=== PATIENT | female | born 1940 | race Hispanic/Latino ===

== ENCOUNTER 2020-02-13 11:47 | Emergency (ER) | payer OTHER ==
--- OUTSIDE RECORDS SUMMARY | 2020-02-13 11:58 | XMS REPORT | Clinical Summary ---
:1940 Author Organization [facility] [facility] Address [address] [place] [address] Care Team Providers Name Role Phone MD Bessy Primary Care Provider Allergies Active Allergy Reactions Severity Noted Date Comments Hydrocodone Swelling 03/15/2018 Iodine Swelling 03/15/2018 Morphine Swelling 07/04/2019 Tramadol Swelling 03/15/2018 Medications Medication Sig Dispensed Refills Start Date End Date Status ONETOUCH VERIO 0 02/28/2018 Acti ve strip test strips citalopram Take 20 mg by 1 12/30/2017 Acti ve (CeleXA) 20 MG mouth daily. tablet metFORMIN Take 1,000 mg 1 12/30/2017 Activ e (GLUCOPHAGE) 1,000 by mouth 2 mg tablet (two) times a day with meals. montelukast Take 10 mg by 0 02/28/2018 Act thao (SINGULAIR) 10 mg mouth daily. tablet simvastatin Take 40 mg by 1 12/11/2017 Act thao (ZOCOR) 40 MG mouth every tablet evening. sotalol (BETAPACE) Take by mouth 3 02/06/2018 Active 80 MG tablet 2 (two) times a day. Pt unsure of dosage. Takes 1/2 tab bid gabapentin Take 300 mg 0 Active (NEURONTIN) 300 mg by mouth 3 capsule (three) times a day. amLODIPine Take 5 mg by 6 06/09/2018 Activ e (NORVASC) 5 mg mouth daily. tablet calcium Take 1 tablet 4 06/09/2018 Activ e carbonate-vitamin by mouth 2 D3 600 mg(1,500mg) (two) times a -400 unit per day. tablet multivitamin/iron/ Take 1 tablet 0 Active folic acid by mouth (CENTRUM COMPLETE daily. ORAL) vitamin B Take 1 tablet 0 Active complex/folic acid by mouth (B COMPLEX 100 daily. ORAL) mirabegron Take 1 tablet 30 tablet 11 06/12/2019 Acti ve (MYRBETRIQ) 50 mg (50 mg total) tablet extended by mouth release 24 hr daily. colestipol Take 2 g by 0 02/15/2018 Discon tinued (COLESTID) 1 gram mouth 2 (two) 0 tablet times a day. pantoprazole Take 40 mg by 1 12/25/2017 Di scontinued (PROTONIX) 40 MG mouth daily. 0 EC tablet TRAVATAN Z 0.004 % 0 02/26/2018 Discontinued 0 triamcinolone APPLY TO 1 02/02/2018 Disco ntinued (KENALOG) 0.1 % AFFECTED AREA 0 cream TWICE A DAY DIRECTED rivaroxaban Take 20 mg by 0 Disc ontinued (XARELTO) 20 mg mouth daily. 0 ( Stop Taking at tablet Discharge) gabapentin Take 1 42 capsule 0 09/21/2019 (NEURONTIN) 100 mg capsule (100 0 capsule mg total) by mouth 3 (three) times a day for 14 days. keTOROlac Take 1 tablet 20 tablet 0 09/21/2019 Expir ed (TORadol) 10 mg (10 mg total) 0 tablet by mouth every 6 (six) hours as needed for moderate pain for up to 4 days. acetaminophen Take 2 120 tablet 0 09/21/2019 Expi red (TylenoL) 325 MG tablets (650 0 tablet mg total) by mouth every 6 (six) hours as needed for mild pain or fever for up to 30 days. 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 Encounters Date Type Specialty Care Team Description 02/04/2020 Office Visit Urology Mindy Lee Urinary frequ ency (Primary Dx); MD Jose Nocturia 02/04/2020 Travel 10/22/2019 Travel 09/25/2019 Telephone Urology Mindy eLe MD 09/24/2019 Travel 09/24/2019 Telephone Urology Mindy Lee MD 09/20/2019 Anesthesia Event Urology TrapNancy gilmore MD Jatzlau, Amybeth, TIMBER TRIMMER 09/20/2019 Surgery Urology Mindy Lee TOTAL COLPOCL Jose COLE MD CYSTOSCOPY 09/20/2019 - Hospital Encounter General Internal Mindy Lee 09/21/2019 Medicine MD Jose 09/16/2019 Pre-Admit Testing Pre-Admission Mindy Lee Preoper ative Appointment Testing MD Jose testing (Primar y Dx) 09/16/2019 Travel 09/03/2019 Travel 09/03/2019 Telephone Urology Masha Ansari MA 07/17/2019 Travel 07/17/2019 Telephone Gynecologic Lillian Lara Oncology MD Enrique 07/12/2019 Telephone Urology Masha Ansari MA 07/04/2019 Office Visit Urology Mindy Lee Vaginal vault MD Jose prolapse (Prima ry Dx) 06/26/2019 Telephone Urology Mindy Lee MD 06/12/2019 Office Visit Urology Mindy Lee Cystocele, mi dline (Primary Dx); MD Jose Urinary frequen cy after 02/12/2019 Surgical History Surgery Date Site/Laterality Comments GALLBLADDER SURGERY TUBAL LIGATION BREAST SURGERY Left breast removed LAPAROSCOPIC TUBAL LIGATION CARDIAC SURGERY cardiac ablation october 2016 HYSTERECTOMY, ABDOMINAL, 05/21/2018 Uterus/N/A Procedu re: ROBOTIC LAPAROSCOPIC, HYSTERECTOMY, BI LATERAL ROBOT-ASSISTED SALPINGO OOPHORE CTOMY, LYSIS OF ADHESIO NS; Surgeon: Lillian Lara MD; Loc ation: [facility] OPAL 6 OR; Service: Obstetrics and Gynecology; Lat erality: N/A; SACROCOLPOPEXY, 05/21/2018 N/A Procedure: ROBOT IC LAPAROSCOPIC, ASSISTED UTEROSA CRAL ROBOT-ASSISTED LIGAMENT SUSPENS ION, ANTERIOR REPAIR, CYSTO; Surgeon: Mindy Lee MD; Locatio n: [facility] OPAL 6 OR; Serv ice: Urology; Latera lity: N/A; SKIN CANCER EXCISION 01/29/2019 - right side of nose 02/28/2019 CARPAL TUNNEL RELEASE 05/01/2017 - Right 04/30/2018 COLPOCLEISIS, PARTIAL, LE 09/20/2019 Vagina /N/A Proced ure: TOTAL FORT COLPOCLEISIS, CY STOSCOPY; Surgeon: Mindy Solano MD; Locatio n: [facility] MAIN OR; Servic e: Urology; Latera lity: N/A; Medical History Medical History Date Comments Diabetes mellitus (HCC) Hypertension BRCA1 gene mutation positive Anesthesia no chest pain, may b e come winded when climbing stairs, npap/nfhap no venipuncture left arm H/O prior ablation treatment HEART abalt ion [address] Martin Luu [facility] on 05/2019 Glaucoma both eyes Hypercholesteremia Exercises occasionally pt does housework cooking no routine exercise may become winded w hen climbing stairs Acid reflux Arthritis back Breast cancer (HCC) Mastectomy lymphn odes removed left arm no venipuncture left ar m Chemo treatmentx 2000 type ? Arrhythmia afibrillation Chronic kidney disease kidney stones Skin cancer Type 2 diabetes mellitus (HCC) diabetic x 26 yrs Family History Medical History Relation Name Comments Breast cancer Daughter Prostate cancer Father Breast cancer Sister Relation Name Status Comments Daughter 3 daughters with breast cancer Father Sister Social History Tobacco Use Types Packs/Day Years Used Date Former Smoker Cigarettes Smokeless Tobacco: Never Used Comments: stopped 1994 Alcohol Use Drinks/Week oz/Week Comments Not Currently Alcohol Habits Answer Date Recorded How often do you have a drink containing alcohol? Never 03/15/2018 How many drinks containing alcohol do you have on a typical Not asked day when you are drinking? How often do you have six or more drinks on one occasion? No t asked Sex Assigned at Date Recorded Not on file COVID-19 Exposure Response Date Recorded In the last month, have you been in contact with No / Unsure 02/04/2020 11:59 AM CDT someone who was confirmed or suspected to have Coronavirus / COVID-19? Obstetrics History Grav Para Term Pre Abrt (TAB) (SAB) (Ect) Mult Lvng Comments 8 8 8 Date Outcome GA Total Labor/2nd/3rd Weight Sex Delivery Anes PTL Nyia A 1 A5 Name Clin Labor Para Para Para Para Para Para Para Para Last Filed Vital Signs Vital Sign Reading Time Taken Comments Blood Pressure 113/56 09/21/2019 11:20 AM CDT Pulse 56 09/21/2019 11:20 AM CDT Temperature 35.9 C (96.7 F) 09/21/2019 11:20 AM CDT Respiratory Rate 18 09/21/2019 11:20 AM CDT Oxygen Saturation 97% 09/21/2019 11:20 AM CDT Inhaled Oxygen Concentration - - Weight 64.9 kg (143 lb) 09/20/2019 7:22 AM CDT Height 147.3 cm (4' 10") 09/20/2019 7:22 AM CDT Body Mass Index 29.89 09/20/2019 7:22 AM CDT Plan of Treatment Date Type Specialty Care Team Description 02/02/2021 Office Visit Urology Mindy Lee MD [address] [facility] et [address] [place], [place] [address] [phone] Health Maintenance Due Date Last Done Comments DIABETIC RETINAL EYE EXAM 1940 DIABETIC FOOT EXAM 1952 SHINGLES VACCINES (#1) 1992 65+ PNEUMOCOCCAL VACCINE (1 of 1 - PPSV23) 2007 INFLUENZA VACCINE 11/30/2019 Procedures Procedure Name Priority Date/Time Associated Diagnosis Comme nts [id number] Routine 02/04/2020 11:18 Urinary frequency Result s for this AM CDT procedure are i n the results section. POC URINALYSIS Routine 02/04/2020 11:17 Urinary frequency Resu lts for this DIPSTICK AM CDT procedure are i n the results section. [id number] Routine 10/22/2019 10:27 Cystocele, midl ine Results for this AM CDT Vaginal vault procedure are in prolapse the results Urinary frequenc y section. History of kidney stones Uterovaginal prolapse, incomplete POC URINALYSIS Routine 10/22/2019 10:26 Cystocele, midl ine Results for this DIPSTICK AM CDT Vaginal vault procedure are in prolapse the results Urinary frequenc y section. History of kidney stones Uterovaginal prolapse, incomplete POC GLUCOSE Routine 09/20/2019 3:56 Results for this PM CDT procedure are i n the results section. POC GLUCOSE Routine 09/20/2019 2:09 Results for this PM CDT procedure are i n the results section. NE AN ELECTIVE Routine 09/20/2019 10:39 Results f or this ENDOTRACHEAL AIRWAY AM CDT procedur e are in the results section. COLPOCLEISIS, 09/20/2019 10:14 Female genital PARTIAL, LE FORT AM CDT prolapse, unspecified Case Notes REQ 0800 START; EST 2 HRS, P OSSIBLE EXTENDED RECOVERY NEEDED @ 0826 NATASHA R/S FROM 07/31 TO 09/04-07/18/19TW Special Needs REQ 0800 START; EST 2 HRS, P OSSIBLE EXTENDED RECOVERY NEEDED POC GLUCOSE Routine 09/20/2019 8:08 Results for this AM CDT procedure are i n the results section. URINE CULTURE Routine 09/16/2019 11:39 Results fo r this AM CDT procedure are i n the results section. CORONAVIRUS SARS-COV 2 Routine 09/16/2019 9:50 Preoperative t esting Results for this AM CDT procedure are i n the results section. MANUAL DIFFERENTIAL Routine 09/16/2019 9:38 Resu lts for this AM CDT procedure are i n the results section. ESTIMATED GFR Routine 09/16/2019 9:38 Results fo r this AM CDT procedure are i n the results section. HEMOGLOBIN A1C Routine 09/16/2019 9:38 Preoperative testing R esults for this AM CDT procedure are i n the results section. URINALYSIS SCREEN AND Routine 09/16/2019 9:38 Preoperative te sting Results for this MICROSCOPY, WITH AM CDT procedure a re in REFLEX TO CULTURE the result s section. PARTIAL THROMBOPLASTIN Routine 09/16/2019 9:38 Preoperative t esting Results for this TIME (PTT) AM CDT procedure are i n the results section. PROTHROMBIN TIME WITH Routine 09/16/2019 9:38 Preoperative te sting Results for this INR AM CDT procedure are i n the results section. COMPREHENSIVE Routine 09/16/2019 9:38 Preoperative testing Re sults for this METABOLIC PANEL AM CDT procedure ar e in the results section. CBC WITH PLATELET AND Routine 09/16/2019 9:38 Preoperative te sting Results for this DIFFERENTIAL AM CDT procedure are i n the results section. URINALYSIS, AUTOMATED Routine 07/04/2019 4:45 Vaginal vault R esults for this WITH MICROSCOPY PM [employer]SULT[employer] prolapse procedure ar e in the results section. URINE CULTURE Routine 07/04/2019 4:45 Vaginal vault Results f or this PM [employer] prolapse procedure are i n the results section. [id number] Routine 07/04/2019 1:44 Vaginal vault Results fo r this PM [employer] prolapse procedure are i n the results section. POC URINALYSIS Routine 07/04/2019 1:43 Vaginal vault Results for this DIPSTICK PM [employer] prolapse procedure are i n the results section. URINE CULTURE Routine 06/12/2019 10:46 Cystocele, midl ine Results for this AM [employer] Urinary frequency procedure are in the results section. [id number] Routine 06/12/2019 10:02 Cystocele, midline Resul ts for this AM [employer] procedure are i n the results section. POC URINALYSIS Routine 06/12/2019 10:02 Cystocele, midline Res ults for this DIPSTICK AM [employer] procedure are i n the results section. after 02/12/2019 Results POC BLADDER SCAN/PVR (02/04/2020 11:18 AM CDT)Only the most recent of4 results within the time period is included. Pathologist Sig nature PVR volume 15ml Specimen Urine POC urinalysis dipstick (02/04/2020 11:17 AM CDT)Only the most recent of4 resultswithin the time period is included. Pathologist Sig nature Color urine, POC Yellow Clarity urine, POC Clear Glucose urine, POC Negative Negative Bilirubin urine, POC Negative Negative Ketones urine, POC Negative Negative Specific gravity urine, 1.010 1.005 - 1.030 POC Blood urine, POC Small (A) Negative pH urine, POC 7.0 5.0, 5.5, 6.0, 6.5, 7.0, 7.5, 8.0, 8.5 Protein urine, POC Negative Negative Urobilinogen urine, POC <2.0 <2.0 Nitrite urine, POC Negative Negative Leukocyte esterase Trace (A) Negative urine, POC Specimen Urine POC glucose (09/20/2019 3:56 PM CDT)Only the most recent of3 resultswithin the time period is included. Pathologist Sig nature POC glucose 142 (H) 65 - 99 mg/dL [facility] Comment: HOSPITAL Film Masker Name: Jett Chau Leo Device ID: [id number] Chartable: [facility] Notified RN Specimen Blood Performing Organization Address City/State/ZIP Code Phon e Number [facility] DEPARTMENT OF PATHOLOGY AND [address] [place] [phone] GENOMIC MEDICINE [address] [address] Airway (09/20/2019 10:39 AM CDT) Narrative Performed At Nancy Larsen MD 5/22/2 020 10:40 AM Airway Date/Time: 09/20/2019 10:22 AM Performed by: Nancy Larsen M D Authorized by: Nancy Larsen MD Location: OR Urgency: Elective Difficult Airway: No Anesthesiologist: Nancy Larsen MD Performed by: anesthesiologist Preoxygenated with 100% O2: Yes C-spine Precautions Maintained Throughou t: No Mask Ventilation: Easy mask Final Airway Type: Endotracheal airway Final Endotracheal Airway: ETT Cuffed: Yes Technique Used: Direct laryngoscopy Devices/Methods Used in Placement: Int ubating stylet Insertion Site: Oral Blade Type: Brandin Laryngoscope Blade/Videolaryngoscope Manuel de Size: 3 ETT Size (mm): 7.0 Cuff at minimum occlusion pressure: Yes Measured from: Lips ETT to Lips (cm): 20 Placement Verified by: CO2 detection, di rect visualization and equal breath sounds Laryngoscopic view: Grade I - full vie w of glottis Rapid Sequence Induction (RSI): No Modified RSI: No Number of Attempts at Approach: 1 Urine culture (09/16/2019 11:39 AM CDT)Only the most recent of3 resultswithin the time period is included. [facility] Urine culture Mixed crista <=10-3 col/cc [facility] IST isolate Comment: HOSPITAL Specimen Information Specimen Source: Urine Specimen Site: Clean catch Specimen Urine Performing Organization Address City/State/ZIP Code Phon e Number [facility] DEPARTMENT OF PATHOLOGY AND [address] [place] [phone] GENOMIC MEDICINE [address] [address] Coronavirus SARS-CoV 2 (09/16/2019 9:50 AM CDT) Pathologist [facility] SARS-CoV-2 source Nasopharyngeal [facility] Comment: Corrected result; previously reported as Nasopha ryngeal Swab on 09/16/2019 at 09:50 by V/AUT SARS-CoV-2 by PCR Not Detected [facility] Comment: INTERPRETIVE INFORMATION: SARS-CoV-2 (COVID-19) by SUMEET This test should be ordered for the detection of the 2 019 novel coronavirus SARS-CoV-2 in individuals who meet SARS-Co V-2 clinical and/or epidemiological criteria. The Coronavirus SARS-CoV-2 (COVID-19) by nucleic acid amplification test is for in vitro diagnostic use unde r the FDA Emergency Use Authorization (EUA) for US laboratories certified under CLIA to perform high complexity tests. This test has not been FDA cleared or approved. In compliance with this authorization, please visit [email or web address] for more information and to access the applicable information s heets. If the result is Not Detected, this does not rule out the presence of PCR inhibitors in the patient specimen or assay spe cific nucleic acid in concentrations below the level of dete ction by the assay. Performed by [employer], [address] [place] [address] [email or web address], John Scanlon MD - Lab. Director Specimen Nasopharyngeal Performing Organization Address City/[facility] Hospital/[facility] Phon e Number [facility] [address] [place] [address] [facility] [address] [place] [address] Urinalysis screen and microscopy, with reflex to culture (09/16/2019 9:38 AM CDT) Specimen site Clean catch [facility] Color, UA Straw [facility] Appearance, UA Clear [facility] Specific gravity, UA 1.012 1.001 - 1.035 [facility] pH, UA 6.0 5.0 - 8.5 [facility] Protein, UA Negative Negative [facility] Glucose, UA Negative Negative [facility] Ketones, UA Negative Negative [facility] Bilirubin, UA Negative Negative [facility] Blood, UA Moderate (A) Negative [facility] Nitrite, UA Negative Negative [facility] Urobilinogen, UA <2.0 <2.0 [facility] Leukocyte esterase, Moderate (A) Negative [facility] Epithelial cells, UA 1 /HPF [facility] WBC, UA 1 0 - 4 /HPF [facility] RBC, UA 3 0 - 5 /HPF [facility] Bacteria, UA None seen None seen [facility] Yeast, UA None seen [facility] Yeast with None seen [facility] pseudohyphae, HOSPITAL Hyaline casts, UA 11 /LPF [facility] Specimen Urine Performing Organization Address City/[facility] Hospital/ZIP Code Phon e Number [facility] DEPARTMENT OF PATHOLOGY AND [address] [place] [address] [phone] [address] Estimated GFR (09/16/2019 9:38 AM CDT) Pathologist [facility] Estimated GFR 84 mL/min/1.73 [facility] Comment: HOSPITAL Catergory Units Interpretation G1 >=90 Normal or high G2 60-89 Mildly decreased G3a 45-59 Mildly to moderately decreas ed G3b 30-44 Moderately to severely decre ased G4 15-29 Severely decreased G5 <15 Kidney failure The eGFR was calculated using the Chronic Kidney Disea se Epidemiology Collaboration (CKD-EPI) equation. Interpretation is based on recommendations of the National Kidney Foundation-Kidney Disease Outcomes Martin lity Initiative (NKF-KDOQI) published in 2014. Specimen Performing Organization Address City/[facility] Phon e Number [facility] DEPARTMENT OF PATHOLOGY AND [address] [place], [place] [address] [address] [address] Manual differential (09/16/2019 9:38 AM CDT) [facility] Manual differential PERFORMED [facility] Neutrophils 53.0 39.0 - 69.0 % [facility] Lymphocytes 38.0 25.0 - 45.0 % [facility] Monocytes 7.0 0.0 - 10.0 % [facility] Eosinophils 2.0 0.0 - 5.0 % [facility] Basophils 0.0 0.0 - 1.0 % [facility] Metamyelocytes 0 % [facility] Promyelocytes 0 % [facility] Platelet slide review Faizan adequate [facility] Tear drop cells Occasional [facility] Ovalocytes Moderate [facility] Specimen Performing Organization Address City/State/Z[place] [facility] Ph[place] e Number [facility] DEPARTMENT OF PATHOLOGY AND [address] [place] [address] [phone] [address] Partial thromboplastin time, activated (09/16/2019 9:38 AM CDT) Pathologist [facility] PTT 50.8 (H) 23.0 - 36.0 [facility] Comment: [facility] HOSPITAL PTT therapeutic range for unfractionated heparin is 61.0-112.0 seconds which corresponds to Anti-Xa 0.3-0.7 U/ml. Specimen Blood Performing Organization Address City/[facility]/[place] [facility] [place] Number [facility] DEPARTMENT OF PATHOLOGY AND [address] [place], [place] [address] [address] [address] Prothrombin time with INR (09/16/2019 9:38 AM CDT) Prothrombin time 24.8 (H) 11.5 - 14.5 [facility] INR 2.2 [place] Comment: [facility] International Normalized Ratio (INR) is a [facility] monitoring tool for patients who are stable on oral anticoagulant therapy. An INR of 2.0-3.0 is suggested for deep vein thrombosis/pulmonary embolism. Specimen Blood Performing Organization Address City/[facility] Phon e Number [facility] DEPARTMENT OF PATHOLOGY AND [address] [place] [address] [phone] [address] CBC with platelet and differential (09/16/2019 9:38 AM CDT) Pathologist Sig nature WBC 7.37 4.50 - 11.00 k/uL [facility] RBC 4.54 4.20 - 5.50 m/uL [facility] HGB 12.0 12.0 - 16.0 g/dL [facility] HCT 38.5 37.0 - 47.0 % [facility] MCV 84.8 82.0 - 100.0 fL [facility] MCH 26.4 (L) 27.0 - 34.0 pg [facility] MCHC 31.2 31.0 - 37.0 g/dL [facility] RDW - SD 43.3 37.0 - 55.0 fL [facility] MPV 9.3 8.8 - 13.2 fL [facility] Platelet count 263 150 - 400 k/uL [facility] Nucleated RBC 0.00 /100 WBC [facility] Neutrophils 53.0 39.0 - 69.0 % [facility] Lymphocytes 38.0 25.0 - 45.0 % [facility] Monocytes 7.0 0.0 - 10.0 % [facility] Eosinophils 2.0 0.0 - 5.0 % [facility] Basophils 0.0 0.0 - 1.0 % [facility] Specimen Blood Performing Organization Address City/State/[facility] Phon e Number [facility] DEPARTMENT OF PATHOLOGY AND [address] [place] [address] [phone] [address] Hemoglobin A1c (09/16/2019 9:38 AM CDT) Hemoglobin A1C 6.1 (H) 4.0 - 5.6 % [facility] Comment: HOSPITAL HbA1c cutoffs for diagnosing diabetes: 4.0% - 5.6% = normal 5.7% - 6.4% = increased risk for diabetes (prediabetes )9 >=6.5% = diabetes9 Goals for glycemic control (ADA 2016) < 7.0% Target for non adults with diabetes. More or less stringent targets may be appropriate for individual patients. <7.5% Target for Children and adolescents with type 1 diabetes. Specimen Blood Performing Organization Address City/[facility] Phon e Number [facility] DEPARTMENT OF PATHOLOGY AND [address] [place] [address] [phone] [address] Comprehensive metabolic panel (09/16/2019 9:38 AM CDT) Sodium 141 135 - 148 [facility] mEq/L [facility] Potassium 3.7 3.5 - 5.0 [facility] mEq/L [facility] Chloride 101 98 - 112 [facility] mEq/L [facility] CO2 25 24 - 31 mEq/L [facility] Anion gap 15@ANIO 7 - 15 mEq/L [facility] BUN 14 8 - 23 mg/dL [facility] Creatinine 0.68 0.50 - 0.90 [facility] mg/dL HOSPITAL Glucose 81 65 - 99 mg/dL [facility] Calcium 10.1 8.8 - 10.2 [facility] mg/dL HOSPITAL Protein 7.8 6.3 - 8.3 [facility] Comment: g/dL [facility] [place] 4.6-7.0 g/dL 1 week 4.4-7.6 g/dL 7 months-1year 5.1-7.3 g/dL 1-2 years 5.6-7.5 g/dL >3 years 6.0-8.0 g/dL 18-150 6.3-8.3 g/dL Albumin 3.9 3.5 - 5.0 [facility] g/dL HOSPITAL A/G ratio 1.0 0.7 - 3.8 [facility] Alkaline phosphatase 104 35 - 104 U/L [facility] AST 16 10 - 35 U/L [facility] ALT 11 5 - 50 U/L [facility] Total bilirubin 0.3 0.0 - 1.2 [facility] mg/dL HOSPITAL Specimen Blood Performing Organization Address [facility] Phon e Number [facility] DEPARTMENT OF PATHOLOGY AND [address] [place], [place] [address] GENOMIC MEDICINE [facility] [address] [place] [id number] Urinalysis, automated with microscopy (07/04/2019 4:45 PM SMALL BUSINESS CONSULTANT) Color, UA YELLOW YELLOW [facility] Appearance CLEAR CLEAR [facility] [place] Specific gravity, 1.004 1.001 - 1.035 [facility] urine [place] pH, urine 7.0 5.0 - 8.0 [facility] [place] Glucose, urine NEGATIVE NEGATIVE [facility] [place] Bilirubin, UA NEGATIVE NEGATIVE [facility] [place] Ketones, UA NEGATIVE NEGATIVE [facility] [place] Occult blood, urine 1+ (A) NEGATIVE [facility] [place] Protein, UA NEGATIVE NEGATIVE [facility] [place] Nitrite, UA NEGATIVE NEGATIVE [facility] [place] Leukocyte esterase, NEGATIVE NEGATIVE [facility] UA [place] WBC, UA 0-5 < OR = 5 /HPF [facility] [place] RBC, UA 3-10 (A) < OR = 2 /HPF [facility] [place] Squamous epithelial 0-5 < OR = 5 /HPF [facility] cells, [facility]A [place] Bacteria, UA FEW (A) NONE SEEN /HPF [facility] [place] Hyaline casts, UA NONE SEEN NONE SEEN /LPF [facility] [place] Specimen Urine Resulting Agency Comment Performing Organization Information: Site ID: [id number] Name: [facility] Neyda briana Address: [address] [place] [id number] Director: Tyron Ann Performing Organization Address [facility] [facility] [place] [employer] [address] [address] after 02/12/2019 Advance Directives For more information, please contact: [phone] Type Date Recorded Patient Histotechnician Explanati on Advance Directives, Living Will and Medical Power of Production Operations Inspector Advance Directives, Living Will 05/24/2018 12:05 PM UNK and Medical Power of Production Operations Inspector
--- OUTSIDE RECORDS SUMMARY | 2020-02-13 12:00 | XMS REPORT ---
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 Problem Left carotid artery stenosis I65.22 Active Problem Bitten by dog, initial encounter W54.0XXA Active Problem S/P left mastectomy Z90.12 Active Problem Hyperlipidemia, unspecified E78.5 Active hyperlipidemia type Problem Routine eye exam Z01.00 Active Problem Essential hypertension I10 Activ e Problem Urinary frequency R35.0 Active Problem History of breast cancer Z85.3 Act thao Problem Other chronic pain G89.29 Active Assessment Hyperlipidemia, unspecified E78.5 Active hyperlipidemia type Assessment Chronic atrial fibrillation I48.2 Active Assessment Controlled type 2 diabetes E11.42 A ctive mellitus with diabetic polyneuropathy, without long-term current use of insulin Assessment Disorientation R41.0 Active Assessment Dizziness R42 Active Assessment Left carotid artery stenosis I65.22 Active Assessment Dorsalgia, unspecified M54.9 Activ e Assessment Pelvic pressure in female R10.2 Ac tive Assessment Essential hypertension I10 Activ e Problem Ear itching L29.9 Active Problem Dorsalgia, unspecified M54.9 Activ e Problem Rash and nonspecific skin eruption R21 Active Problem Left wrist pain M25.532 Active Problem Left arm pain M79.602 Active Problem Neck pain M54.2 Active Problem Polyarthralgia M25.50 Active Problem Depression screening Z13.31 Active Problem Left axillary pain M79.622 Active Problem Left arm numbness R20.0 Active Problem Glaucoma of both eyes, unspecified H40.9 Active glaucoma type Problem Spinal stenosis of M48.01 Active yxbjmsei-tuqsgtm-qwice region Problem Carotid occlusion, bilateral I65.23 Active Problem 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 Activ e intervertebral disc Problem Controlled type 2 diabetes E11.42 A ctive mellitus with diabetic polyneuropathy, without long-term current use of insulin Problem Neuropathy G62.9 Active Problem Type 2 diabetes E11.9 Active Problem Urinary incontinence R32 Active Problem Recurrent urinary tract infection N39.0 Active Problem Depression with anxiety F41.8 Acti ve Problem Obstructive sleep apnea G47.33 Acti ve Problem Obesity E66.9 Active Problem Hypertension I10 Active Problem Allergic rhinitis J30.9 Active Problem Hyperlipidemia E78.5 Active Problem Skin lesions L98.9 Active Problem GERD (gastroesophageal reflux K21.9 Active disease) Problem Bladder prolapse, female, acquired N81.10 Active Problem Right hand pain M79.641 Active Problem Local infection of the skin and L08.9 Active subcutaneous tissue, unspecified Problem Anxiety F41.9 Active Problem Itching L29.9 Active Problem Pelvic pressure in female R10.2 Ac tive Problem Dizziness R42 Active Problem Hypersomnia, unspecified G47.10 Act thao Problem Open bite of right hand, initial S61.451A Active encounter Problem Chronic atrial fibrillation I48.2 Active Problem Swelling of right hand M79.89 Activ e Problem 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 Active Problem Disorientation R41.0 Active Problem Diverticulosis of colon K57.30 Acti ve Problem Wound of skin T14.8XXA Active Problem Carpal tunnel syndrome of right G56.01 Active wrist Problem Yeast infection of the skin B37.2 Active Problem Genetic susceptibility to other Z15.09 Active malignant neoplasm Problem Carpal tunnel syndrome of left G56.02 Active wrist Problem Gastroesophageal reflux disease K21.9 Active without esophagitis Problem Open bite of left thumb without S61.052A Active damage to nail, initial encounter Problem Uterine prolapse N81.4 Active Medications Medication Code Code Instructions Start End Status Dosage System Date Date Xarelto [facility] 14762628041 20 MG Orally Active 1 table t with Once a day food Pantoprazole [facility] 14212801133 40 MG Orally Active 1 tablet Sodium Once a day Neurontin ND 52236643952 300 MG Orally Active 1 ca psule three times a before day bedtime Betapace ND 72153173498 80 MG Orally Active 1/2 ta blet every 12 hrs Singulair [facility] 48391179434 10 MG Orally Active 1 tab let Once a day Gabapentin [facility] 91433321982 300 MG Orally Active 2 c apsules Once a day Xarelto [facility] 21910251959 20 mg Orally Active 1 table t Once a day Metformin HCl [facility] 89642527565 1000 MG Orally Active 1 tablet with Twice daily a meal Veramyst NDC 0 Active not defined Sotalol HCl [facility] 70248793129 80 MG Orally Active 1/2 tablet Twice a day Metformin HCl [facility] 83077662196 1000 MG Active TAKE 1 TABLET BY MOUTH TWICE A DAY Neurontin ND 05258599281 300 MG Orally 1 Active as directed capsule in am and 2 capsules in pm Celexa [facility] 18487553000 20 MG Active TAKE 1 TABLE T BY MOUTH EVERY DAY Vascepa [facility] 56976477479 1 GM Orally Active 2 capsul es Twice a day with meals Simvastatin [facility] 10006795374 40 MG Orally Active 1 t ablet in Once a day the evening Triamcinolone [facility] 30871487665 0.025 % Active 1 appl ication Acetonide Externally to affected Twice a day area One Touch Verio ND 0 n/s finger Claudia Active one s trip prick once a , 2019 Citalopram [facility] 75724375984 20 MG Orally Active 1 ta blet Hydrobromide Once a day Triamcinolone [facility] 52116939250 0.1 % Active 1 appl ication Acetonide Externally to affected Twice a day area Folic Acid [facility] 05200092327 1 MG Orally Active 1 tab let Once a day Advil [facility] 84045226265 200 MG Orally Active (OTC) 2 as directed tablets as needed for pain; take with food or milk as needed Celexa [facility] 71871882477 20 MG Orally Active 1 table t Once a day Multivitamin [facility] 34680223755 - Orally Active as dir ected Adult Zyrtec Allergy [facility] 35139762946 10 MG Orally Active 1 tablet Once a day Colestipol HCl [facility] 17185512965 1 GM Active TAKE 2 TABLETS BY MOUTH TWICE A DAY Simvastatin [facility] 62412133750 40 MG Orally Active 1 t ablet in Once a day the evening BusPIRone HCl [facility] 86849740559 7.5 MG Orally Active 1 tablet as Twice a day needed for anxiety Nystatin [facility] 23559325690 299044 UNIT/GM Active 1 ap plication Externally as to affecte d directed area(s) Ketoconazole [facility] 14295020790 2 % Externally Sept Sept Active 1 application Once a day , to affected 2018 2019 area(s) Results No Known Results Summary Purpose eClinicalWorks Submission
--- OUTSIDE RECORDS SUMMARY | 2020-02-13 12:00 | XMS REPORT | Continuity of Care Document ---
:1940 Author Organization [facility] t Address [address] [place] [address] Care Team Providers Name Role Phone Bessy KIMBLE Primary Care Physician Jesus KIMBLE, N. Attending Clinician Marie Larsen MD Attending Clinician Michael CASTRO Attending Clinician Elan KAM Attending Clinician Unavailable Enrique Lara MD Attending Clinician JESUS Admitting Clinician Unavailable Payers Payer Name Policy Type Policy Effective Expiration Source Number Date Date TEXANPLUSTEXANPLUS [id number] 2018 Doyle bradley [id number] 2018-Pr 00:00:00 M ethodist esentHMO Problems Condition Condition Condition Status Onset Resolution Last Treating Co mments Source Name Details Category Date Date Treatment Clinician Date Body mass Body Mass Problem Active Gutierrez anna index 30+ Index 30+ 7-13 Fami ly - obesity - Obesity 00:00: Prac tic 00 e Anxiety Anxiety Problem Active [place] 7-13 Family 00:00: Practic 00 e Mild Mild Problem Active [facility] intermitte Intermitte 7-13 Fa [place] nt asthma nt Asthma 00:00: Prac tic 00 e 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 7-13 Fa [place] s s 00:00: Practic 00 e Mixed Mixed Problem Active [facility] hyperlipid Hyperlipid 7-13 Fa [place] emia due emia Due 00:00: Practi c to type 2 to Type 2 00 e diabetes Diabetes mellitus Mellitus Hyperlipid Hyperlipid Problem Active [facility] illage emia emia 5-26 Family 00:00: Practic 00 e Vaginal Vaginal Disease Active [facility] prolapse prolapse 5-22 Method i 00:00: st 00 Diabetic Diabetic Problem Active Fer ge polyneurop Polyneurop 4-16 Andrew scott sharon 00:00: Practic e Hyperchole Hyperchole Problem Active [facility] sterolemia sterolemia 4-16 [place] 00:00: Practic e Recurrent Recurrent Problem Active Gutierrez anna major Major 4-16 Family depressive Depressive 00:00: Pr actic episodes, Episodes, 00 e mild Mild Essential Essential Problem Active Gutierrez valladarese hypertensi Hypertensi 4-16 Andrew wallace 00:00: Practic 00 e Chronic Chronic Problem Active [facility] atrial Atrial 4-16 Family fibrillati Fibrillati 00:00: Pr actic on on e Congestive Congestive Problem Active [facility] heart Heart 4-16 Family failure Failure 00:00: Practic 00 e 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 1-16 Method i 00:00: st 00 Carpal Carpal Problem Active [facility] tunnel tunnel [facility] - syndrome syndrome Memori a of right of right l wrist wrist [facility] Depression Depression Problem Active [facility] with with [facility] - anxiety anxiety Memoria l [facility] Chronic Chronic Problem Active [facility] atrial atrial [facility] - fibrillati fibrillati Me moria on on l [facility] Neuropathy Neuropathy Problem Active [facility] - [facility] Degenerati Degenerati Problem Active [facility] on of on of [facility] - lumbar lumbar Memoria interverte interverte l bral disc bral disc Outp ati ent Clinics Diverticul Diverticul Problem Active [facility] osis of osis of [facility] - colon colon [facility]oria l [facility] Allergic Allergic Problem Active [facility] rhinitis rhinitis [facility] - [facility] Urinary Urinary Problem Active [facility] incontinen incontinen Elise kes - ce ce Memoria l [facility] Obstructiv Obstructiv Problem Active [facility] e sleep e sleep [facility] apnea apnea [facility] Hypertensi Hypertensi Problem Active [facility] on on [facility] Controlled Controlled Problem Active [facility] type 2 type 2 [facility] - diabetes diabetes Memori a mellitus mellitus l with with Outpati diabetic diabetic ent polyneurop polyneurop Cl inics athy, athy, without without long-term long-term current current use of use of insulin insulin Hyperlipid Hyperlipid Problem Active [facility] emia emia [facility] - [facility]oria l Outpati ent Clinics Gastroesop Gastroesop Problem Active [facility] hageal hageal [facility] - reflux reflux Memoria disease disease l without without Outpati esophagiti esophagiti en t s s Clinics Type 2 Type [address] [facility] [facility] diabetes diabetes [facility] Obesity Obesity Problem Active [facility] 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, occlusion, Elise kes - bilateral bilateral Seymour modesta l [facility] 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 [facility] - of of Memoria occipito-a occipito-a l tlanto-axi tlanto-axi Ou tpati al region al region ent Clinics 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 Me moria l [facility] Recurrent Recurrent Problem Active [facility] urinary urinary [facility] - tract tract Memoria infection infection l [facility] Hypersomni Hypersomni Problem Active [facility] a, a, [facility] - unspecifie unspecifie Me moria d d l [facility] Bitten by Bitten by Problem Active [facility] dog, dog, [facility] - initial initial Memoria encounter encounter l Outpati ent Clinics Uterine Uterine Problem Active [facility] prolapse prolapse [facility] - [facility] l [facility] Open bite Open bite Problem Active [facility] of left of left [facility] - thumb thumb Memoria without without l damage to damage to Outp ati nail, nail, ent initial initial Clinics encounter encounter Carpal Carpal Problem Active [facility] tunnel tunnel [facility] - syndrome syndrome Memori a of left of left l wrist wrist Outpati ent Clinics Genetic Genetic Problem Active [facility] susceptibi susceptibi Elise kes - 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 Memoria malignant malignant l neoplasm neoplasm Outpat i of breast of breast ent Clinics Yeast Yeast Problem Active [facility] infection infection Luke s - of the of the Memoria skin skin l Outpati ent Clinics Genetic Genetic Problem Active [facility] susceptibi susceptibi Elise kes - 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 Memoria malignant malignant l neoplasm neoplasm Outpat i of ovary of ovary ent Clinics Genetic Genetic Problem Active [facility] susceptibi susceptibi Elise kes - 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 Memoria other other l malignant malignant Outp ati neoplasm neoplasm ent Clinics S/P left S/P left Problem Active [facility] mastectomy mastectomy Elise kes - Memoria l [facility] History of History of Problem Active [facility] breast breast [facility] - cancer cancer Memoria l [facility] Routine Routine Problem Active [facility] eye exam eye exam [facility] - [facility] l [facility] Urinary Urinary Problem Active [facility] frequency frequency Luke s - Memoria l [facility] Left Left Diagnosis Active [facility] carotid carotid [facility] - artery artery Memoria stenosis stenosis l [facility] Itching Itching Problem Active [facility] Other Other Problem Active [facility] chronic chronic [facility] - pain pain [facility]oria l [facility] Rash and Rash and Problem Active [facility] t nonspecifi nonspecifi Elise kes - c skin c skin Memoria eruption eruption l [facility] Neck pain Neck pain Problem Active [facility] Dorsalgia, Dorsalgia, Problem Active [facility] unspecifie unspecifie Elise kes - d d Memoria l [facility] Left arm Left arm Problem Active [facility] numbness numbness [facility] - [facility] Glaucoma Glaucoma Problem Active [facility] t of both of both [facility] - eyes, eyes, Memoria unspecifie unspecifie l d glaucoma d glaucoma Ou tpati type type ent Clinics Left wrist Left wrist Problem Active [facility] pain pain [facility] - [facility]ics Polyarthra Polyarthra Problem Active [facility] lgia lgia [facility] - [facility]ics Left arm Left arm Problem Active [facility] pain pain [facility]ics Skin Skin Problem Active [facility] lesions lesions [facility] - [facility] Left Left Problem Active [facility] axillary axillary [facility] - pain pain [facility]oria l [facility] Bladder Bladder Problem Active [facility] prolapse, prolapse, Luke s - female, female, Memoria acquired acquired l [facility] Depression Depression Problem Active [facility] screening screening Luke s - Memoria l [facility] Anxiety Anxiety Problem Active [facility] Swelling Swelling Problem Active [facility] t of right of right [facility] - hand hand Memoria l [facility] Right hand Right hand Problem Active [facility] pain pain [facility] - [facility] Wound of Wound of Problem Active [facility] skin skin [facility] Local Local Problem Active [facility] infection infection Luke s - of the of the Memoria skin and skin and l subcutaneo subcutaneo Ou tpati us tissue, us tissue, en t unspecifie unspecifie Cl inics d d Open bite Open bite Problem Active [facility] of right of right [facility] - hand, hand, Memoria initial initial l encounter encounter Outp ati ent Clinics Disorienta Disorienta Problem Active [facility] tion tion [facility] Dizziness Dizziness Problem Active [facility] Pelvic Pelvic Problem Active [facility] pressure pressure [facility] - in female in female Seymour modesta l [facility] Allergies, Adverse Reactions, Alerts Allergy Allergy Status Severity Reaction(s) Onset Inactive Treating Comm ents Source Name Type Date Date Clinician Morphine Propensi Active [place] to 3-05 Methodi adverse 00:00: st reaction 00 s to drug Hydrocod Propensi Active Swelling 2017-05 [place] ty to 1-15 Methodi adverse 00:00: st reaction 00 s to drug Iodine Propensi Active Swelling 2017-05 [place] ty to 15 Methodi adverse 00:00: st reaction 00 s to drug Tramadol Propensi Active Swelling 2017-05 [place] to 1-15 Methodi adverse 00:00: st reaction 00 s to drug Hydrocod Allergy Active [facility] one to Family substanc Practic e e Iodine Allergy Active [place] to Family substanc Practic e e Tramadol Allergy Active [place] to Family substanc Practic e e Antara Adverse Active dizziness [facility] Reaction [facility] - [facility] Family History Family Member Diagnosis Comments Start Date Stop Date Source Natural daughter Breast cancer [place] [facility] Natural father Prostate cancer [place] [facility] Natural sister Breast cancer [facility] Social History Social Habit Start Date Stop Date Quantity Comments Source History of Cigarette Smoker [place] [facility] tobacco use History [facility] Meth odist Alcohol Std Drinks History SDOH [facility] Meth odist Alcohol Binge Sex Assigned At [facility] ethodist Exposure to Not sure Lawson Metho dist SARS-CoV-2 (event) Tobacco use and 2019-09-27 2019-09-27 Never used [facility] ethodist exposure 00:00:00 00:00:00 Alcohol intake 2019-09-27 2019-09-27 Ex-drinker [facility] thodist 00:00:00 00:00:00 (finding) Tobacco Comment 2018-05-07 2018-05-07 stopped 1994 [place] [facility] 00:00:00 00:00:00 History SDOH 2018-03-15 2018-03-15 1 [facility] Meth odist Alcohol Frequency 00:00:00 00:00:00 Smoking Status Start Date Stop Date Source Former smoker 2019-09-27 00:00:00 2019-09-27 00:00:00 [place] [facility] Medications Ordered Filled Start Stop Current Ordering Indication Dosage Frequency Signature Comments Components Source Medication Medication Date Date Medication? Clinician (SIG) Name Name One Touch One Touch Yes Mandy one strip [facility] Verio Verio 6-24 Millender [facility] - 00:00: Memoria 00 l Outpati ent Clinics rivaroxaban 2019-0 2020- No 20mg QD Take 20 mg [place] (XARELTO) 5-23 05-23 by mouth Metho di 20 mg 13:08: 00:[address] tablet 53 :00 gabapentin 2019-0 Yes 300mg Q.[id number] Take 300 [place] (NEURONTIN) 5-23 [id number] mg by M ethodi 300 mg 13:08: 3D mouth 3 st capsule 49 (three) times a day. multivitami 2020-0 Yes 1{tbl} QD Take 1 [place]/iron/foli 5-23 tablet by Met emoryi c acid 13:08: mouth st (CENTRUM 49 daily. COMPLETE ORAL) vitamin B 2020-0 Yes 1{tbl} QD Take 1 [place] complex/fol 5-23 tablet by Met hodi ic acid (B 13:08: mouth st COMPLEX 100 49 daily. ORAL) acetaminoph 2019-0 2020- No 650mg Q6H Take 2 [place] en 5-23 06-22 tablets Methodi (TylenoL) 00:00: 23:59 ([address] 325 MG 00 :00 total) by tablet mouth every 6 (six) hours as needed for mild pain or fever for up to 30 days. gabapentin 2019- No 100mg [id number] Take 1 [place] (NEURONTIN) 09-20 06-06 [id number] capsule Methodi 100 mg 00:00: 23:59 3D ([address] capsule 00 :00 total) by mouth 3 (three) times a day for 14 days. keTOROlac 2019- No 10mg Q6H Take 1 [place] (TORadol) 09-20 05-27 tablet (10 Met hodi 10 mg 00:00: 23:59 mg total) st tablet 00 :00 by mouth every 6 (six) hours as needed for moderate pain for up to 4 days. mirabegron Yes 50mg QD Take 1 [place] (MYRBETRIQ) 2-12 tablet (50 Me thodi 50 mg 00:00: mg total) st tablet 00 by mouth extended daily. release 24 hr Ketoconazol Ketoconazol 2019- No Mandy [address] [facility] e e 01-16 Millender applicatio Anam es - 00:00: 00:00 n to Memoria 00 :00 affected l area(s) Outpati ent Clinics amLODIPine Yes 5mg QD Take 5 mg [place] (NORVASC) 5 2-09 by mouth Meth frankie mg tablet 00:00: daily. st 00 calcium Yes 1{tbl} Q.5D Take 1 [place] carbonate-v 2-09 tablet by Met hodi itamin D3 00:00: mouth 2 st 600 00 (two) mg(1,500mg) times a -400 unit day. per tablet ONETOUCH 2017-05 Yes [place] VERIO strip 0-31 Methodi test strips 00:00: st 00 montelukast 2017-05 Yes 10mg QD Take 10 mg [place] (SINGULAIR) 0-31 by mouth Meth frankie 10 mg 00:00: daily. st tablet 00 TRAVATAN Z 2017-05- No [place] 0.004 % 007-15 Methodi 00:00: 00:00 st 00 :00 colestipol 2017-05- No 2g Q.5D Take 2 g [place] (COLESTID) 0-18 03-17 by mouth 2 Me thodi 1 gram 00:00: 00:00 (two) st tablet 00 :00 times a day. sotalol 2017-05 Yes Q.5D Take by [place] (BETAPACE) 0-09 mouth 2 Method i 80 MG 00:00: (two) st tablet 00 times a day. Pt unsure of dosage. Takes 1/2 tab bid triamcinolo 2017-05- No APPLY TO H billie ne 0-05 -17 AFFECTED Methodi (KENALOG) 00:00: 00:00 AREA TWICE s t 0.1 % cream 00 :00 A DAY DIRECTED citalopram Yes 20mg QD Take 20 mg [place] (CeleXA) 20 9 by mouth Meth frankie MG tablet 00:00: daily. st 00 metFORMIN Yes 1000mg Q.5D Take 1,000 [place] (GLUCOPHAGE 9- mg by Methodi ) 1,000 mg 00:00: mouth 2 st tablet 00 (two) times a day with meals. pantoprazol 2019- No 40mg QD Take 40 mg [place] e 807-15 by mouth Methodi (PROTONIX) 00:00: 00:[address] 40 MG EC 00 :00 tablet simvastatin Yes 40mg QD Take 40 mg [place] (ZOCOR) 40 12-11 by mouth Metho di MG tablet 00:00: every st 00 evening. amlodipine amlodipine No amlodipine [facility] 5 mg tablet 5 mg tablet 5 mg F amily Take 1 Take 1 tablet Practic tablet tablet Take 1 e every day every day tablet by oral by oral every day route. route. by oral route. baclofen 10 baclofen 10 No 1 QID baclofen [facility] mg tablet mg tablet 10 mg Fami ly Take 1 Take 1 tablet Practic tablet 4 tablet 4 Take 1 e times a day times a day tablet 4 by oral by oral times a route. route. day by oral route. buspirone buspirone No buspirone [place] 7.5 mg 7.5 mg 7.5 mg Family tablet Take tablet Take tablet Practic 1 tablet 1 tablet Take 1 e twice a day twice a day tablet by oral by oral twice a route. route. day by oral route. citalopram citalopram No citalopram [facility] 20 mg 20 mg 20 mg Family tablet Take tablet Take tablet Practic 1 tablet 1 tablet Take 1 e every day every day tablet by oral by oral every day route. route. by oral route. Fluad Fluad No Fluad [facility] Family 67yr 67yr 67yr Practic up(PF)45 up(PF)45 up(PF)45 e mcg(15 mcg(15 mcg(15 mcgx3)/0.5 mcgx3)/0.5 mcgx3)/0.5 mL mL mL intramuscul intramuscul intramuscu ar syringe ar syringe lar syringe gabapentin gabapentin No 1capsul TID gabapentin [facility] 300 mg 300 mg e(s) 300 mg Family capsule capsule capsule Practi c Take 1 Take 1 Take 1 e capsule 3 capsule 3 capsule 3 times a day times a day times a by oral by oral day by route. route. oral route. ketorolac ketorolac No 1 Q6H ketorolac [facility] 10 mg 10 mg 10 mg Family tablet Take tablet Take tablet Practic 1 tablet 1 tablet Take 1 e every 6 every 6 tablet hours by hours by every 6 oral route. oral route. hours by oral route. metformin metformin No 1 BID metformin [facility] 1,000 mg 1,000 mg 1,000 mg Fam tina tablet Take tablet Take tablet Practic 1 tablet 1 tablet Take 1 e twice a day twice a day tablet by oral by oral twice a route. route. day by oral route. montelukast montelukast No 1 Q1D montelukas [facility] 10 mg 10 mg t 10 mg Family tablet Take tablet Take tablet Practic 1 tablet 1 tablet Take 1 e every day every day tablet by oral by oral every day route. route. by oral route. nystatin nystatin No nystatin Gutierrez castillo 100,000 100,000 100,000 Family unit/gram unit/gram unit/gram Practic topical topical topical e cream cream cream OneTouch OneTouch No OneTouch Gutierrez castillo Delica Delica Delica Family Lancets 33 Lancets 33 Lancets 33 Practic gauge gauge gauge e OneTouch OneTouch No OneTouch Gutierrez anna Verio test Verio test Verio test Family strips strips strips Practic e Prevnar 13 Prevnar 13 No Prevnar 13 [place] (PF) 0.5 mL (PF) 0.5 mL (PF) 0.5 Family intramuscul intramuscul mL P ractic ar syringe ar syringe intramuscu e lar syringe Shingrix Shingrix No Shingrix Gutierrez anna (PF) 50 (PF) 50 (PF) 50 Family mcg/0.5 mL mcg/0.5 mL mcg/0.5 mL Practic intramuscul intramuscul intramuscu e ar ar lar suspension, suspension, suspension kit kit , kit simvastatin simvastatin No ashley [facility] 40 mg 40 mg n 40 mg Family tablet Take tablet Take tablet Practic 1 tablet 1 tablet Take 1 e every day every day tablet by oral by oral every day route. route. by oral route. sotalol 80 sotalol 80 No sotalol 80 [facility] mg tablet mg tablet mg tablet Family Take 1 Take 1 Take 1 Practic tablet tablet tablet e twice a day twice a day twice a by oral by oral day by route. route. oral route. Xarelto 20 Xarelto 20 No Xarelto 20 [facility] mg tablet mg tablet mg tablet Family Take 1 Take 1 Take 1 Practic tablet tablet tablet e every day every day every day by oral by oral by oral route. route. route. Xarelto Xarelto Yes Mandy [address] [facility] Millender with food [facility] Clinics Pantoprazol Pantoprazol Yes Mandy [address] [facility] e Sodium e Sodium Millender Elise kes - Memoria l Outpati ent Clinics Neurontin Neurontin Yes Mandy as [facility] Mill[facility] directed [facility] Betapace Betapace Yes Mandy 1/[address] [facility] [address] Millender [facility] Singulair Singulair Yes Mandy [address] [facility] Millender [facility] Gabapentin Gabapentin Yes Mandy [address] [facility] Millender [facility] Xarelto Xarelto Yes Mandy [address] [facility] Millender [facility] Metformin Metformin Yes Mandy [address] [facility] HCl HCl Millender with a [facility] - meal Memoria l Outpati ent Clinics Veramyst Veramyst Yes Mandy not [facility] Millender defined [facility] Sotalol HCl Sotalol HCl Yes Mandy 1/[address] [facility] [address] Millender [facility] Metformin Metformin Yes Mandy TAKE [address] HCl HCl Millender TABLET BY Lukes - MOUTH Memoria TWICE A l DAY Outpati ent Clinics Celexa Celexa Yes Mandy TAKE [address] [facility] Millender TABLET BY [facility] - MOUTH Memoria EVERY DAY l Outpati ent Clinics Vascepa Vascepa Yes Mandy [address] Millender with meals Luke s - Memoria l Outpati ent Clinics Simvastatin Simvastatin Yes Mandy [address] [facility] Millender in the [facility] - evening Memoria l Outpati ent Clinics Triamcinolo Triamcinolo Yes Mandy [address] [facility] ne ne Millender applicatio Luke s - Acetonide Acetonide n to Memor ia affected l area Outpati ent Clinics Citalopram Citalopram Yes Mandy [address] Hydrobromid Hydrobromid Millender [facility] - e e Memoria l Outpati ent Clinics Triamcinolo Triamcinolo Yes Mandy [address] [facility] ne ne Millender applicatio Luke s - Acetonide Acetonide n to Memor ia affected l area Outpati ent Clinics Folic Acid Folic Acid Yes Mandy [address] [facility] Millender [facility] Advil Advil Yes Mandy (OTC) [address] [facility] Millender tablets as Luke s - needed for Memoria pain; take l with food Outpati or milk as ent needed Clinics Celexa Celexa Yes Mandy [address] [facility] Millender [facility] ent Clin[facility] Multivitami Multivitami Yes Mandy as [facility] n Adult n Adult Millender directed [facility] ent Clin[facility]andy [address] [facility] Allergy Allergy Millender Luke s - Memoria l Outpati ent Clinics Colestipol Colestipol Yes Mandy TAKE [address] [facility] HCl HCl Millender TABLETS BY Luke s - MOUTH Memoria TWICE A l DAY Outpati ent Clinics Simvastatin Simvastatin Yes Mandy [address] [facility] [place] in the [facility] - evening Memoria l Outpati ent Clinics BusPIRone BusPIRone Yes Mandy [address] HCl HCl Millender as needed [facility] - for Memoria anxiety l Outpati ent Clinics Nystatin Nystatin Yes Mandy [address] [facility] Millender applicatio Luke s - n to Memoria affected l area(s) Outpati ent Clinics Immunizations Ordered Immunization Filled Immunization Date Status Commen ts Source Name Name influenza, influenza, 2018-05-01 Completed [facility] Family injectable, injectable, 00:00:00 Practice quadrivalent quadrivalent Vital Signs Vital Name Observation Time Observation Value Comments Source Height 2019-11-11 00:00:00 58 [in_i] [facility] BMI (Body Mass 2019-11-11 00:00:00 30.1 kg/m2 [facility] Family Index) Practice Body Weight 2019-11-11 00:00:00 144 [lb_av] [facility] Systolic blood 2019-09-21 11:20:56 113 mm[Hg] [place] [facility] pressure Diastolic blood 2019-09-21 11:20:56 56 mm[Hg] [place] [facility] pressure Heart rate 2019-09-21 11:20:56 56 /min Can Jung Body temperature 2019-09-21 11:20:56 35.94 [place] [facility] Respiratory rate 2019-09-21 11:20:56 18 /min [place] [facility] Oxygen saturation in 2019-09-21 11:20:56 97 /min Can Jung Arterial blood by Pulse oximetry Body height 2019-09-20 07:22:00 147.3 cm Can Jung Body weight 2019-09-20 07:22:00 64.864 kg Can Jung BMI 2019-09-20 07:22:00 29.89 kg/m2 Can Jung Procedures Procedure Date / Time Performing Clinician Source Performed [id number] 2020-02-04 11:18:00 Ann Lee Ri thodist POC URINALYSIS DIPSTICK 2020-02-04 11:17:00 Ann Lee [id number] 2019-10-22 10:27:00 Ann Lee Ri thodist POC URINALYSIS DIPSTICK 2019-10-22 10:26:00 Ann Lee POC GLUCOSE 2019-09-20 15:56:00 Ann Lee Ri thodist POC GLUCOSE 2019-09-20 14:09:00 Ann Lee Ri thodist [place] AN ELECTIVE 2019-09-20 10:39:30 Nancy Larsen ethodist ENDOTRACHEAL AIRWAY Marie COLPOCLEISIS, PARTIAL, LE 2019-09-20 10:14:00 Ann Lee FORT POC GLUCOSE 2019-09-20 08:08:00 Ann Lee Me thodist Procedure on Bladder 2019-09-20 00:00:00 [facility] URINE CULTURE 2019-09-16 11:39:00 Ann Lee Me thodist CORONAVIRUS SARS-COV 2 2019-09-16 09:50:00 Ann Lee CBC WITH PLATELET AND 2019-09-16 09:38:00 Ann Lee DIFFERENTIAL COMPREHENSIVE METABOLIC 2019-09-16 09:38:00 Ann Lee PANEL PROTHROMBIN TIME WITH INR 2019-09-16 09:38:00 Ann Lee PARTIAL THROMBOPLASTIN 2019-09-16 09:38:00 Ann Lee TIME (PTT) URINALYSIS SCREEN AND 2019-09-16 09:38:00 Ann Lee MICROSCOPY, WITH REFLEX TO CULTURE HEMOGLOBIN A1C 2019-09-16 09:38:00 Nakita Rodriguez hodist ESTIMATED GFR 2019-09-16 09:38:00 Ann Lee Me thodist MANUAL DIFFERENTIAL 2019-09-16 09:38:00 Ann Lee URINE CULTURE 2019-07-04 16:45:00 Ann [facility] URINALYSIS, AUTOMATED 2019-07-04 16:45:00 Ann Lee WITH MICROSCOPY [id number] 2019-07-04 13:44:00 Ann [place] [facility] POC URINALYSIS DIPSTICK 2019-07-04 13:43:00 Ann Lee URINE CULTURE 2019-06-12 10:46:00 Ann [place] [facility] POC URINALYSIS DIPSTICK 2019-06-12 10:02:00 Ann Lee [id number] 2019-06-12 10:02:00 Ann Lee Me [facility]odist Mastectomy (One Breast) 2001-06-12 00:00:00 [facility] Hysterectomy (Partial) [place] [facility] Plan of Care Planned Activity Planned Date Details Comments Source Future Scheduled 2019-11-30 INFLUENZA VACCINE [place] [facility] 00:00:00 [code = INFLUENZA VACCINE] Future Scheduled 2007 65+ PNEUMOCOCCAL [place] [facility] Test 00:00:00 VACCINE (1 of 1 - PPSV23) [code = 65+ PNEUMOCOCCAL VACCINE (1 of 1 - PPSV23)] Future Scheduled 1992 SHINGLES VACCINES (#1) [place] [facility] 00:00:00 [code = SHINGLES VACCINES (#1)] Future Scheduled 1952 DIABETIC FOOT EXAM [place] [facility] 00:00:00 [code = DIABETIC FOOT EXAM] Future Scheduled 1942 DIABETIC RETINAL EYE [place] [facility] 00:00:00 EXAM [code = DIABETIC RETINAL EYE EXAM] Encounters Start End Encounter Admission Attending Care Care Encounter Source Date/Time Date/Time Type Type Clinicians Facility Department ID 2020-02-04 2020-02-04 Outpatient [facility] [id number] [place] 00:00:00 00:00:00 ANN [address] 2019-11-11 2019-11-11 Bill Stover VFP [place] - [id number] [facility] 00:00:00 00:00:00 Piter WATER ATTENDANT: [facility] [facility] [place] [facility] tic [facility], Suite [email or web address] [address] , Ph. 2019-11-07 2019-11-07 [facility] [id number] [facility] 15:20:00 15:20:00 [facility] Medicine Outpati ent Clinics 2019-10-23 2019-10-23 [facility] [id number] 09:40:00 09:40:00 [facility] Medicine Outpati ent Clinics 2019-10-22 2019-10-22 Outpatient [facility] [id number] [place] 00:00:00 00:00:00 ANN [address] 2019-09-25 2019-09-25 Zofia Reyes VFP [place] - [id number] [facility] 00:00:00 00:00:00 Ige-Odunug [facility] tina choi WATER ATTENDANT: Medical - Practi c [address] [email or web address] [email or web address], [address], [place] [address] , Ph. 2019-09-20 2019-09-21 [facility]patient [facility] [id number] Lawson 00:00:00 00:00:00 ANN [address] 2019-09-16 2019-09-16 Outpatient [facility] [id number] [place] 00:00:00 00:00:[address] ANN [address] 2019-07-12 2019-07-12 [facility] [id number] 11:15:00 11:15:00 t [facility] Medicine Outpati ent Clinics 2019-07-04 2019-07-04 Outpatient [facility] [id number] [place] 00:00:00 00:00:00 ANN [address] 2019-04-12 2019-04-12 [facility] [id number] 10:00:00 10:00:00 [facility] Medicine Outpati ent Clinics 2019-04-05 2019-04-05 [facility] [id number] 11:20:00 11:20:00 [facility] Medicine Outpati ent Clinics 2019-03-19 2019-03-19 [facility] [id number] 14:40:00 14:40:00 [facility] Medicine Outpati ent Clinics 2019-03-19 2019-03-19 [facility] [id number] 13:40:00 13:40:00 [facility] Medicine Outpati ent Clinics 2019-02-22 2019-02-22 [facility] [id number] 16:29:00 16:29:00 [facility] Medicine Outpati ent Clinics 2019-02-07 2019-02-07 [facility] [id number] 09:27:00 09:27:00 t [facility] Medicine Outpati ent Clinics 2019-01-17 2019-01-17 [facility] [id number] 22:03:00 22:03:00 t [facility] Medicine Outpati ent Clinics 2019-01-15 2019-01-15 [facility] [id number] 10:23:00 10:23:00 t [facility] Medicine Outpati ent Clinics 2019-01-11 2019-01-11 [facility] [id number] 09:20:00 09:20:00 t [facility] Medicine Outpati ent Clinics 2019-01-10 2019-01-10 [facility] [id number] 10:20:00 10:20:00 t [facility] Medicine Outpati ent Clinics 2018-12-05 2018-12-05 [facility] [id number] 08:00:00 08:00:00 t [facility] Medicine Outpati ent Clinics 2018-10-12 2018-10-12 [facility] [id number] 00:37:00 00:37:00 t [facility] Medicine Outpati ent Clinics 2018-10-10 2018-10-10 [facility] [id number] 16:20:00 16:20:00 t [facility] Medicine Outpati ent Clinics 2018-08-28 2018-08-28 [facility] [id number] 09:19:00 09:19:00 t [facility] Medicine Outpati ent Clinics 2018-08-23 2018-08-23 [facility] [id number] 14:20:00 14:20:00 t [facility] Medicine Outpati ent Clinics 2018-07-30 2018-07-30 [facility] [id number] 15:30:00 15:30:[address] [facility] [address] - [address] [facility] l Medicine Outpati ent Clinics 2018-07-30 2018-07-30 [facility] [id number] 11:20:00 11:20:00 t [facility] s - Road [facility] Medicine l Medicine Outpati ent Clinics 2018-07-19 2018-07-19 [facility] [id number] 07:56:00 07:56:00 [place] [employer] [address] [facility] l Medicine Outpati ent Clinics 2018-07-16 2018-07-16 [facility] [id number] 15:20:00 15:20:00 [place] [employer] [address] [facility] l Medicine Outpati ent Clinics 2018-04-30 2018-04-30 [facility] [id number] 11:55:00 11:55:00 [place] [employer] [address] [facility] l Medicine Outpati ent Clinics 2018-03-27 2018-03-27 [facility] [id number] 14:00:00 14:00:00 [place] [employer] [address] [facility] Medicine l Medicine Outpati ent Clinics 2017-12-25 2017-12-25 [facility] [id number] 10:00:00 10:00:00 [place] [employer] [address] [facility] l Medicine Outpati ent Clinics 2017-10-25 2017-10-25 [facility] [id number] 10:00:00 10:00:00 t [place] [employer] [address] [facility] l Medicine Outpati ent Clinics 2017-08-02 2017-08-02 [facility] [id number] 16:11:00 16:11:00 t [place] [employer] [address] [facility] Medicine l Medicine Outpati ent Clinics 2017-07-25 2017-07-25 [facility] [id number] 09:00:00 09:00:00 t [place] [employer] [address] [facility] Clinics Results Test Description Test Time Test Comments Results Result Comments Source POC BLADDER SCAN/PVR 2020-02-04 11:18:00 Test Item Value Reference Range Interpretation Comme nts PVR volume (test code = 5766) 15ml [facility] urinalysis [id number] 11:17:00 Test Item Value Reference Range Interpretation Comments Color urine, POC (test code = Yellow 1929856) Clarity urine, POC (test code Clear = 3499108) Glucose urine, POC (test code Negative Negative = 8477640) Bilirubin urine, POC (test Negative Negative code = 9876857) Ketones urine, POC (test code Negative Negative = 2143208) Specific gravity urine, POC 1.010 1.005-1.030 (test code = 7148701) Blood urine, POC (test code = Small Negative A 1358216) pH urine, POC (test code = 7.0 5.0, 5.5, 6.0, 6.5, 9617653) 7.0, 7.5, 8.0, 8.5 Protein urine, POC (test code Negative Negative = 5908258) Urobilinogen urine, POC (test <2.0 <2.0 code = 4889047) Nitrite urine, POC (test code Negative Negative = 1456544) Leukocyte esterase urine, POC Trace Negative A (test code = 2934712) Lab Interpretation (test code Abnormal = 44462-1) [facility] BRAIN [id number] 11:35:07CLINICAL INDICATION: Z15.01 Genetic susceptibility to malignant neoplasm of breastMODALITY: Siemens Skyra 3.0 Marisol MRITECHNIQUE: Multiplanar SE, FSE and inversion recovery pulse sequences of the brain were performed without contrast enhancement. Diffusion weighted imaging was utilized. IV contrast, 12 ml Dotarem are injected IV and post-contrast T1 axial and coronal images obtained.IMPRESSION:1. No intracranial metastatic disease.2. Mild chronic microvascular ischemic change of the deep supratentorial white matter, commensurate with age.FINDINGS:COMPARISON: noneMinimally confluent foci of T2/FLAIR hyperintense signal are seen in the supratentorial deep white matter most consistent with mild chronic microvascular ischemic change based on morphology and distribution.There are no acute infarcts or hemorrhages. No intra-axial or extra-axial masses are seen. There is no hydrocephalus or midline shift. There is no abnormal enhancement.Sella and parasellar structures are normal. Central skull base and craniocervical junction are normal.Normal flow voids are seen intracranially in carotid and vertebrobasilar arteries. The dural venous sinuses are patent.The calvarium is intact. Mucosal thickening of the bilateral mastoid air cells and paranasal sinuses noted.POC [id number] 15:57:58 Test Item Value Reference Range Interpretation Comments POC glucose (test code = 142 mg/dL 65-99 H Ope rator Name: 25244-5) Jett Chau DDevice ID: [id number] able : [facility] Notified instructor bus trolley and taxi Interpretation (test Abnormal code = 82592-0) Can [id number] 10:39:30Nancy Larsen MD 09/20/2019 10:40 AMAirwayDate/Time: 09/20/2019 10:22 AMPerformed by: Nancy Larsen MDAuthorized by: Nancy Larsen MD Location: ORUrgency: ElectiveDifficult Airway: No Anesthesiologist: Nancy Larsen MDPerformed by: anesthesiologistPreoxygenated with 100% O2: Yes C- spine Precautions Maintained Throughout: No Mask Ventilation: Easy maskFinal Airway Type: Endotracheal airwayFinal Endotracheal Airway: ETTCuffed: Yes Technique Used: Direct laryngoscopyDevices/Methods Used in Placement: Intubating styletInsertion Site: OralBlade Type: MacintoshLaryngoscope Blade/Videolaryngoscope Blade Size: 3ETT Size (mm): 7.0Cuff at minimum occlusion pressure: Yes Measured from: LipsETT to Lips (cm): 20Placement Verified by: CO2 detection, direct visualization and equal breath sounds Laryngoscopic view: Grade I - full view of glottisRapid Sequence Induction (RSI): No Modified RSI: No Number of Attempts at Approach: 1[place] [facility] Coronavirus SARS-CoV 16:41:54 Test Item Value Reference Range Interpretation Comments SARS-CoV-2 Nasopharyngeal Corrected res ult; source (test previously repo rted as code = 76830-0) Nasopharynge al Swab on 09/16/2019 at 0 9:50 by V/AUT SARS-CoV-2 by Not Detected INTERPRETIVE PCR (test code = INFORMATION : SARS-CoV-2 16689-0) (COVID-19) by N AAThis test should be ordered for the detecti on of the 2019 novel coronavirus RAUL S-CoV-2 in individuals who meet SARS-CoV-2 clin ical and/or epidemio logical criteria.The Coronavirus RAUL S-CoV-2 (COVID-19) by n [facility] acid amplificat ion test is for in vitro diagnostic use under the FDA Emergen cy Use Authorization ( EUA) for US laboratories certified under CLIA to perform high co mplexity tests. This obdulio t has not been FDA cl eared or approved. In co mpliance with this authorization, please visit [email or web address] [email or web address] for mo re information and to access the appl icable information she ets.If the result is N ot Detected, this does not rule out the pr esence of PCR inhibito rs in the patient spe cimen or assay specific nucleic acid in concent rations below the level of detection by th e assay.Performed by [facility], [address], [place] [address] www.[email or web address] , MD Abigail Solis ab. Director [place] ShayyistUrine [id number] 14:05:33 Test Item Value Reference Range Interpretation Comments Urine culture Mixed crista Specimen isolate (test <=10-3 col/cc InformationSp ecimen code = 41215-5) Source: Urin eSpecimen Site: Clean cat [facility] MethodistHemoglobin [id number] 13:26:34 Test Item Value Reference Range Interpretation Comments Hemoglobin A1C (test 6.1 % 4-5.6 H HbA1c c utoffs for code = 96329-0) diagnosing diabetes:4.0% - 5.6% = normal5.7% - 6.4% = increased risk for diabetes (prediabetes)9> =6.5% = oqpovlfn1Xoil s for glycemic contro l (ADA 2016)< 7.0% Ta rget for non adults with wilfrido betes. More or less stringent targe ts may be appropriate for individual livia ents. <7.5% Target for Children and adolescents wit h type 1 diabetes. Lab Interpretation (test Abnormal code = 93873-5) Can MethodistUrinalysis screen and microscopy, with reflex to culture 2019-09-16 13:14:52 Test Item Value Reference Range Interpretation Comments Specimen site (test code = Clean catch 4961988) Color, UA (test code = 5778-6) Straw Appearance, UA (test code = Clear 5767-9) Specific gravity, UA (test code = 1.012 1.001-1.035 5811-5) pH, UA (test code = 5803-2) 6.0 5.0-8.5 Protein, UA (test code = 66665-9) Negative Negative Glucose, UA (test code = 34155-0) Negative Negative Ketones, UA (test code = 2514-8) Negative Negative Bilirubin, UA (test code = Negative Negative 5770-3) Blood, UA (test code = 5794-3) Moderate Negative A Nitrite, UA (test code = 5802-4) Negative Negative Urobilinogen, UA (test code = <2.0 <2.0 75367-0) Leukocyte esterase, UA (test code Moderate Negative A = 5799-2) Epithelial cells, UA (test code = 1 /HPF 5787-7) WBC, UA (test code = 5821-4) 1 0- 4 /HPF RBC, UA (test code = 00691-6) 3 0- 5 /HPF Bacteria, UA (test code = None seen None seen 35148-4) Yeast, UA (test code = 02116-2) None seen Yeast with pseudohyphae, UA (test None seen code = 95137-1) Hyaline casts, UA (test code = 11 /LPF 5796-8) Lab Interpretation (test code = Abnormal 39259-9) Can MethodistPartial thromboplastin time, [id number] 11:59:41 Test Item Value Reference Range Interpretation Comments PTT (test code = 50.8 23.0- 36.0 sec H PTT thera peutic range 33217-5) for unfractiona charly heparin is61.0- 112.0 seconds which corresponds to Anti-Xa0.3-0.7 U/ml. Lab Interpretation Abnormal (test code = 64151-4) Can MethodistProthrombin time with [id number] 11:53:02 Test Item Value Reference Range Interpretation Comments Prothrombin time (test 24.8 11.5- 14.5 sec H code = 5902-2) INR (test code = 2.2 The Interna tional 95875-5) Normalized Rati o (INR) is a therapeuti c monitoring tool for patients who ar e stable on oral anticoagulant t herapy. An INR of 2.0-3 .0 is suggested for d eep vein thrombosis/pulm onary embolism. Lab Interpretation Abnormal (test code = 29059-9) Can MethodistCBC with platelet and [id number] 11:42:28 Test Item Value Reference Range Interpretation Comments WBC (test code = 23301-1) 7.37 4.50- 11.00 k/uL RBC (test code = 66978-4) 4.54 m/uL 4.2-5.5 HGB (test code = 718-7) 12.0 g/dL 12-16 HCT (test code = 4544-3) 38.5 % 37-47 MCV (test code = 787-2) 84.8 fL 82-100 MCH (test code = 785-6) 26.4 pg 27-34 L MCHC (test code = 786-4) 31.2 g/dL 31-37 RDW - SD (test code = 64907-0) 43.3 fL 37-55 MPV (test code = 41100-3) 9.3 fL 8.8-13.2 Platelet count (test code = 263 150- 400 k/uL 86891-0) Nucleated RBC (test code = 0.00 /100 WBC 37189-9) Neutrophils (test code = 69913-0) 53.0 % 39-69 Lymphocytes (test code = 40315-2) 38.0 % 25-45 Monocytes (test code = 15953-6) 7.0 % 0-10 Eosinophils (test code = 50962-6) 2.0 % 0-5 Basophils (test code = 71446-3) 0.0 % 0-1 Lab Interpretation (test code = Abnormal 07889-1) Can MethodistManual [id number] 11:42:28 Test Item Value Reference Range Interpretation Comments Manual differential (test code = PERFORMED 02647-5) Neutrophils (test code = 53.0 % 39-69 17478-0) Lymphocytes (test code = 38.0 % 25-45 68321-4) Monocytes (test code = 53598-4) 7.0 % 0-10 Eosinophils (test code = 2.0 % 0-5 80940-9) Basophils (test code = 83763-8) 0.0 % 0-1 Metamyelocytes (test code = 0 % 740-1) Promyelocytes (test code = 0 % 783-1) Platelet slide review (test code Faizan adequate = 41114-7) Tear drop cells (test code = Occasional 7791-7) Ovalocytes (test code = 774-0) Moderate Lawson MethodistComprehensive metabolic [id number] 11:41:23 Test Item Value Reference Range Interpretation Comments Sodium (test code = 141 135- 148 mEq/L 2951-2) Potassium (test code = 3.7 3.5- 5.0 mEq/L 2823-3) Chloride (test code = 101 98- 112 mEq/L 5-0) CO2 (test code = 25 24- 31 mEq/L 8-9) Anion gap (test code = 15@ANIO 7- 15 mEq/L 58888-1) BUN (test code = 14 mg/dL 8-23 3094-0) Creatinine (test code = 0.68 mg/dL 0.5-0.9 2160-0) Glucose (test code = 81 mg/dL 65-99 2345-7) Calcium (test code = 10.1 mg/dL 8.8-10.2 36179-1) Protein (test code = 7.8 g/dL 6.3-8.3 -[place] n 2885-2) 4.6-7.0 g/ dL1 week 4.4-7.6 g/dL7 months-1year 5.1-7.3 g/dL1 -2 years 5.6-7.5 g/dL>3 years 6.0-8.0 g/dL18- 150 6.3-8.3 g/dL Albumin (test code = 3.9 g/dL 3.5-5 1751-7) A/G ratio (test code = 1.0 0.7-3.8 1759-0) Alkaline phosphatase 104 U/L 35-104 (test code = 6768-6) AST (test code = 16 U/L 10-35 1920-8) ALT (test code = 11 U/L 5-50 1742-6) Total bilirubin (test 0.3 mg/dL 0-1.2 code = 1975-2) [facility] MethodistEstimated [id number] 11:41:14 Test Item Value Reference Range Interpretation Comments Estimated GFR (test 84 mL/min/1.73 m2 Catbeba enamorado Units code = 5488) InterpretationG 1 >=90 Normal or highG2 60-89 Mildly tzgxzenkvR5e 45-59 Mildly to mode rately jbgdwmvmgF7a 30-44 Moderately to severely decreasedG4 15-29 Severely decre asedG5 <15 Kidn ey failureThe eGFR was calculated jaycee g the Chronic Kidney Disease Epidemiology Co llaboration (CKD-EPI) equat ion. Interpretation is based on recommendations of the National Kidney Foundation-Kidn ey Disease Outcomes Qualit y Initiative (NKF-KDOQI) pub lished in 2014. [facility] MethodistUrinalysis, automated with [id number] 21:19:00 Test Item Value Reference Range Interpretation Comments Color, UA (test code = YELLOW YELLOW 5778-6) Appearance (test code = CLEAR CLEAR 5767-9) Specific gravity, urine 1.004 1.001-1.035 (test code = 5811-5) pH, urine (test code = 7.0 5.0-8.0 5803-2) Glucose, urine (test NEGATIVE NEGATIVE code = 81201-7) Bilirubin, UA (test code NEGATIVE NEGATIVE = 5770-3) Ketones, UA (test code = NEGATIVE NEGATIVE 2514-8) Occult blood, urine 1+ NEGATIVE A (test code = 5794-3) Protein, UA (test code = NEGATIVE NEGATIVE 39270-8) Nitrite, UA (test code = NEGATIVE NEGATIVE 5802-4) Leukocyte esterase, UA NEGATIVE NEGATIVE (test code = 5799-2) WBC, UA (test code = 0-5 < OR = 5 /HPF 5821-4) RBC, UA (test code = 3-10 < OR = 2 /HPF A 76673-8) Squamous epithelial 0-5 < OR = 5 /HPF cells, UA (test code = 06186-9) Bacteria, UA (test code FEW NONE SEEN /HPF A = 5769-5) Hyaline casts, UA (test NONE SEEN NONE SEEN /LPF code = 5796-8) RAC (test code = RAC) Performing Organization Information: Site ID: [facility] Name[facility] Address: [address] [place] [id number] Director: Tyron Ann Lab Interpretation (test Abnormal code = 95970-8) Can Jung
[2020-02-13] MEDS ORDERED: CODEINE 30MG/APAP 300MG TAB ONE (13:28)
--- NOTE | 2020-02-13 14:11 | RAD REPORT ---
EXAM DESCRIPTION: US - Extremity Venous Uni Ltd - 02/13/2020 1:56 pm CLINICAL HISTORY: PAIN COMPARISON: None. TECHNIQUE: Real-time sonographic evaluation of the right lower extremity deep venous systems was per formed. FINDINGS: Normal compressibility, flow augmentation, phasic flow and spontaneous flow are identified in the right lower extremity common femoral, superficial femoral, popliteal and posterior tibial vei ns. No intraluminal filling defects seen. IMPRESSION: No DVT in the right lower extremity.
--- NOTE | 2020-02-13 14:13 | EDPHYS ---
Physician Documentation [facility] Name: Alexsandra Hercules Age: 79 yrs Sex: Female : 1940 Arrival Date: 02/13/2020 Time: 11:51 Bed 4 Private MD: ED Physician Cale Almaguer HPI: 02/12 13:08 This 79 yrs old Female presents to ER via Wheelchair with complaints of Leg jmm Pain, Leg Swelling. 13:08 The patient presents with pain, that is acute. Onset: The symptoms/episode jmm began/occurred swelling, pain. Modifying factors: The symptoms are alleviated by nothing. the symptoms are aggravated by nothing. Patient complains of right lower leg pain which began after bending. Pain radiates from the calf to the mid thigh. Denies chest pain or shortness of breath. Historical: - Allergies: 12:11 Stadol; ss 12:11 Tramadol HCl; ss 12:11 Morphine; ss 12:11 Codeine; ss - PMHx: 12:11 BREAST CA; Diabetes - NIDDM; Glaucoma; Hypertension; ss - PSHx: 12:11 Mastectomy, Left; Cholecystectomy; Tubal ligation; ss - Immunization history:: Adult Immunizations up to date. - Social history:: Smoking status: Patient denies any tobacco usage or history of. ROS: 13:08 Constitutional: Negative for fever, chills, and weight loss, Cardiovascular: Negative jmm for chest pain, palpitations, and edema, Respiratory: Negative for shortness of breath, cough, wheezing, and pleuritic chest pain. 13:08 MS/extremity: Positive for pain. 13:08 All other systems are negative. Exam: 13:08 Constitutional: This is a well developed, well nourished patient who is awake, alert, jmm and in no acute distress. Head/Face: atraumatic. Eyes: EOMI, no conjunctival erythema appreciated ENT: Moist Mucus Membranes Neck: Trachea midline, Supple Chest/axilla: Normal chest wall appearance and motion. Cardiovascular: Regular rate and rhythm. No edema appreciated Respiratory: Normal respirations, no respiratory distress appreciated Abdomen/GI: Non distended, soft Back: Normal ROM 13:08 Musculoskeletal/extremity: FROM appreciated to the right knee, no swelling appreciated, compartments are soft, pain elicited on flexion. 13:08 Skin: Appearance: Color: normal in color. 13:08 Neuro: Orientation: is normal, Mentation: is normal, Memory: is normal. 13:08 Psych: Behavior/mood is pleasant, cooperative. Vital Signs: 12:07 BP 141 / 69; Pulse 60; Resp 17; Temp 98.4(TE); Pulse Ox 95% on R/A; Weight 64.86 kg; ss Height 4 ft. 10 in. (147.32 cm); Pain 10/10; 14:38 BP 125 / 67; Pulse 50; Resp 18; Pulse Ox 97% on R/A; em 12:07 Body Mass Index 29.89 (64.86 kg, 147.32 cm) ss MDM: 12:56 Patient medically screened. [facility] 14:03 Data reviewed: vital signs, nurses notes. Counseling: I had a detailed discussion with sam the patient and/or guardian regarding: the historical points, exam findings, and any diagnostic results supporting the discharge/admit diagnosis, radiology results, the need for outpatient follow up, to return to the emergency department if symptoms worsen or persist or if there are any questions or concerns that arise at home. ED course: Patient is alert and non toxic in appearance in the ED. US is negative. Patient is advised to follow up with pc for reevaluation. Patient is otherwise given strict return precautions. Patient understood and agrees with the plan of care. . 02/12 13:08 Order name: Extremity Venous Unilateral Ltd; Complete Time: 14:16 [facility] Administered Medications: 13:16 Drug: Tylenol #3 (300 mg-30 mg) 1 tablet Route: PO; em 14:37 Follow up: Response: No adverse reaction; Marked relief of symptoms; Pain is decreased em Disposition: 18:57 Co-signature as Attending Physician, Cale Almaguer MD I agree with the assessment and kdr plan of care. Disposition: 02/13/20 14:13 Discharged to Home. Impression: Pain in right lower leg. - Condition is Stable. - Discharge Instructions: Musculoskeletal Pain. - Prescriptions for orphenadrine citrate 100 mg Oral Tablet Sustained Release - take 1 tablet by ORAL route 2 times per day As needed; 20 tablet. - Medication Reconciliation Form, Thank You Letter, Antibiotic Education, Prescription Opioid Use form. - Follow up: Private Physician; When: 2 - 3 days; Reason: Recheck today's complaints, Continuance of care, Re-evaluation by your physician. Signatures: Dispatcher [employer] Cale Andrade MD MD kdr Mickail, Joel, PA PA jmm Munoz, Edgar, Emily Strickland RN, RN RN ss Corrections: (The following items were deleted from the chart) 14:43 14:13 02/13/2020 14:13 Discharged to Home. Impression: Pain in right lower leg. em Condition is Stable. Forms are Medication Reconciliation Form, Thank You Letter, Antibiotic Education, Prescription Opioid Use. Follow up: Private Physician; When: 2 - 3 days; Reason: Recheck today's complaints, Continuance of care, Re-evaluation by your physician. sam
--- NOTE | 2020-02-13 14:13 | ER ---
Nurse's Notes [facility] Name: Alexsandra Hercules Age: 79 yrs Sex: Female : 1940 Arrival Date: 02/13/2020 Time: 11:51 Bed 4 Private MD: Diagnosis: Pain in right lower leg Presentation: 02/12 12:07 Chief complaint: Patient states: R leg cramping that began a few days ago and now some ss mild swelling. Coronavirus screen: Client denies travel out of the [place] in the last 14 days. Ebola Screen: Patient denies exposure to infectious person. Patient denies travel to an Ebola-affected area in the 21 days before illness onset. Initial Sepsis Screen: Does the patient meet any 2 criteria? No. Patient's initial sepsis screen is negative. Does the patient have a suspected source of infection? No. Patient's initial sepsis screen is negative. Risk Assessment: Do you want to hurt yourself or someone else? Patient reports no desire to harm self or others. Onset of symptoms was February 09, 2020. 12:07 Method Of Arrival: Wheelchair ss 12:07 Acuity: TANO 3 ss Historical: - Allergies: 12:11 Stadol; ss 12:11 Tramadol HCl; ss 12:11 Morphine; ss 12:11 Codeine; ss - PMHx: 12:11 BREAST CA; Diabetes - NIDDM; Glaucoma; Hypertension; ss - PSHx: 12:11 Mastectomy, Left; Cholecystectomy; Tubal ligation; ss - Immunization history:: Adult Immunizations up to date. - Social history:: Smoking status: Patient denies any tobacco usage or history of. Screenin:14 Abuse screen: Denies threats or abuse. Nutritional screening: No deficits noted. em Tuberculosis screening: No symptoms or risk factors identified. Fall Risk None identified. Assessment: 12:17 General: Appears in no apparent distress. uncomfortable, Behavior is calm, cooperative, em appropriate for age. Pain: Complains of pain in right knee Pain radiates to right leg Pain currently is 10 out of 10 on a pain scale. Neuro: Level of Consciousness is awake, alert, obeys commands, Oriented to person, place, time, situation, Appropriate for age. Cardiovascular: Capillary refill < 3 seconds Patient's skin is warm and dry. Respiratory: Airway is patent Respiratory effort is even, unlabored, Respiratory pattern is regular, symmetrical. Derm: Skin is intact, is healthy with good turgor, Skin is pink, warm \T\ dry. Musculoskeletal: Range of motion: limited in right knee Swelling present in right knee. 13:00 Reassessment: provider at bedside. em 14:37 Reassessment: Patient appears in no apparent distress at this time. Patient and/or em family updated on plan of care and expected duration. Pain level reassessed. Patient is alert, oriented x 3, equal unlabored respirations, skin warm/dry/pink. Patient states feeling better. Vital Signs: 12:07 BP 141 / 69; Pulse 60; Resp 17; Temp 98.4(TE); Pulse Ox 95% on R/A; Weight 64.86 kg; ss Height 4 ft. 10 in. (147.32 cm); Pain 10/10; 14:38 BP 125 / 67; Pulse 50; Resp 18; Pulse Ox 97% on R/A; em 12:07 Body Mass Index 29.89 (64.86 kg, 147.32 cm) ED Course: 11:51 Patient arrived in ED. mr 11:56 Cale Almaguer MD is Attending Physician. kdr 12:10 Triage completed. ss 12:11 Arm band placed on right wrist. ss 12:12 Jose Flores, RN is Primary Nurse. em 12:14 Patient has correct armband on for positive identification. Bed in low position. Call em light in reach. Adult w/ patient. 12:55 Chema Holguin PA is PHCP. m 13:56 Extremity Venous Unilateral Ltd In Process Unspecified. EDMS 14:35 No provider procedures requiring assistance completed. Patient did not have IV access em during this emergency room visit. Administered Medications: 13:16 Drug: Tylenol #3 (300 mg-30 mg) 1 tablet Route: PO; em 14:37 Follow up: Response: No adverse reaction; Marked relief of symptoms; Pain is decreased em Outcome: 14:13 Discharge ordered by MD. jmm 14:35 Discharged to home via wheelchair, with family. em 14:35 Condition: good 14:35 Discharge instructions given to patient, family, Instructed on discharge instructions, follow up and referral plans. medication usage, Demonstrated understanding of instructions, follow-up care, medications, Prescriptions given X 1. 14:43 Patient left the ED. em Signatures: Dispatcher [employer] Cale Andrade MD MD kdr Mickail, Joel, PA PA jmm Rivera, Mary mr Munoz, Edgar, RN RN Emily Mcduffie RN RN ss
[2020-02-13 15:17] VITALS: TEMP 98.4
[2020-02-13 15:20] VITALS: BP 125/67; O2SAT 97
== END 2020-02-13 14:43 | disposition home or self-care (01) ==
LOC: ER 11:47
DX: M79.661 Pain in right lower leg (principal); I10 Essential (primary) hypertension; Z85.3 Personal history of malignant neoplasm of breast; Z88.5 Allergy status to narcotic agent
CPT/HCPCS: 93971; 99283

== ENCOUNTER 2021-09-21 06:25 | Day surgery (SDC) | payer OTHER ==
[2021-09-16 10:26] LABS: Absolute Lymphocytes (CBC) 1.6 K/uL (0.7-4.9); Hematocrit 36.4 % (36.0-45.0); Lymphocytes % 25.2 % (15.3-44.8); MPV 6.4 fL (7.6-11.3); RBC Red Blood Cell Count 4.41 M/uL (3.86-4.86)
[2021-09-16 10:38] LABS: Protime INR 1.33
--- NOTE | 2021-09-16 10:54 | RAD REPORT ---
EXAM DESCRIPTION: RAD - Chest Pa And Lat (2 Views) - 09/16/2021 10:26 am CLINICAL HISTORY: Pre op pending surgery COMPARISON: Portable 03/22/2015 TECHNIQUE: Frontal and lateral views of the chest were obtained. FINDINGS: The lungs are clear of acute infiltrate or mass. No failure or volume overload. Chronic in terstitial lung pattern is present not substantially different from comparison. Central vasculature within normal limits. Heart size is upper normal and stable. No pleural effusion or pneumothorax seen . No acute bony finding noted. No aortic abnormality. IMPRESSION: No acute cardiopulmonary process. No significant change from comparison.
[2021-09-16 11:17] LABS: Potassium 4.1 mmol/L (3.5-5.1)
[2021-09-21] MEDS ORDERED: NA CHLORIDE 0.9% 1,000 ML ONE (06:52)
[2021-09-21] MEDS ORDERED: LIDOCAINE 1% MPF 5 ML VIAL ONE (07:26)
[2021-09-21] MEDS ORDERED: propofoL 200 MG/20 ML VIAL IV ONE (07:26)
[2021-09-21] MEDS ORDERED: FENTANYL CITR 100 MCG/2 ML ONE ×2 (07:26→08:41)
[2021-09-21] MEDS ORDERED: dexAMETHasone 10 MG/ML VIAL ONE (07:53)
[2021-09-21] MEDS ORDERED: KETOROLAC 30 MG/ML INJ ONE (07:54)
[2021-09-21] MEDS ORDERED: ONDANSETRON 4 MG/2 ML VIAL ONE (07:55)
[2021-09-21] MEDS ORDERED: DIPHENHYDRAMINE 50 MG/ML VIAL ONE (07:55)
[2021-09-21] MEDS ORDERED: Gentamicin Inj 140 MG in NA CHLORIDE 0.9% 100 ML IV ONE (08:00)
[2021-09-21] MEDS ORDERED: AMPICILLIN SODIUM 2 GM in NA CHLORIDE 0.9% 100 ML IVPB ONE (08:00)
[2021-09-21] MEDS ORDERED: EPHEDRINE SULF 50 MG/ML VIAL ONE (08:06)
[2021-09-21] MEDS ORDERED: NS 0.9% VIAL 10 ML ONE (08:06)
[2021-09-21] MEDS ORDERED: Mastisol Adhesive Liq ONE (08:26)
[2021-09-21] MEDS ORDERED: CODEINE 30MG/APAP 300MG TAB ONE (09:57)
[2021-09-21 10:39] VITALS: BP 132/70; TEMP 96.5
[2021-09-21 10:45] VITALS: O2SAT 95
--- NOTE | 2021-09-21 13:08 | RAD REPORT ---
EXAM DESCRIPTION: RAD - Urethrocystogrphy Retrograde - 09/21/2021 11:15 am FINDINGS: There were 49 portable KUB images obtained during bilateral ureteral stent placement. Imaging show stepwise placement of the stents with no suspicious or unexpected finding. Fluoro time was 1 minutes 43 seconds. Cumulative dose 44.2 mGy.
--- NOTE | 2021-09-21 19:43 | OP ---
Surgeon: VICKI JOHNSON Preoperative Diagnoses: 1.Gross hematuria. 2.Left ureterolithiasis. 3.Bilateral nephrolithiasis. Postoperative Diagnoses: 1.Gross hematuria. 2.Left ureterolithiasis. 3.Bilateral nephrolithiasis. 4.Bilateral ureteropelvic obstruction. Principle Procedures: 1.Cystoscopy. 2.Bilateral retrograde pyelographies. 3.Bilateral ureteroscopy with pyeloscopy. 4.Bilateral ureteral stent placements, left tethered, right non-tethered. Indication For Procedure: Ms. Hercules is a 81-year-old woman with type 2 diabetes, hypertension, atr ial fibrillation, on Xarelto, and chronic arthritis with arthritic pain, status post vaginal hysterec kimi with bladder lift procedure with mesh performed by Dr. Lee at [facility]. She had b ilateral nephrolithiasis observed small volume, approximately 3 mm or smaller, and obstructive left u reterolithiasis of uncertain duration associated with gross hematuria. She presents today for defini tive management and evaluation. Procedure In Detail: The patient was consented in the preoperative holding area before being transfe rred to the operative suite where general anesthesia was induced. She was given ampicillin 2 g and g entamicin 140 mg IV antimicrobial prophylaxis, and pneumo boots were provided for DVT prophylaxis. S he was placed in the lithotomy position, padded and secured to the table appropriately. Her genitali a were prepped using Hibiclens and she was draped in standard fashion. The case was begun using a 22 -[place]er rigid cystoscope to traverse the urethra and into the bladder with ease. There was a bit of urethral descent noted upon passage of the scope, and upon entry into the bladder, surveyed in its en tirety, there were no mucosal lesions, foreign bodies, or stones noted throughout. There was mild tr abeculation noted and the ureteral orifices were orthotopic in location, though somewhat anomalous in appearance, essentially almost retracting laterally within the bladder wall with contractions of the ureter. This would cause a mucosal overlap of the orifice that was atypical in appearance functiona lly. I was then able to cannulate the left ureteral orifice, but this required the tip of a Sensor wire in order to pass a 5-[place]er ureteral access catheter into the orifice. A retrograde pyelogram was then performed. Left Retrograde Pyelography: Using a 70:30 mixture of Omnipaque and saline, contrast was injected vi a the 5-[place]er ureteral access catheter and did propagate up a relatively nondilated ureter before de layed entry into the renal pelvis was noted associated with a degree of mild ureteral tortuosity prox imally. As a result, because of the suspected obstruction causing the tortuosity, I surveyed the magdalena ices once filled with contrast and no filling defects were noted. I then passed a Sensor wire via th e 5-[place]er ureteral access catheter, coiling it within the upper pole of the kidney. I then turned m y attention to her right ureteral orifice, leaving the Sensor wire in place on the left side. The right ureteral orifice was similarly cannulated, this time using the tip of a Bentson guidewire a nd a 5-[place]er ureteral access catheter and again a retrograde pyelogram was performed. Right Retrograde Pyelography: Using a 70:30 mixture of Omnipaque and saline, the contrast mixture wa s again injected via the 5-[place]er ureteral access catheter and did propagate up a relatively nondilat ed ureter before again encountering significant tortuosity this time in the proximal ureter near the UPJ. The renal pelvis did delineate without filling defects, but there was significant blunting of t he calices, creating a degree of suspicion. As a result, I passed the Bentson guidewire via the 5-Fr ench ureteral access catheter into the upper pole of the kidney where a coil was observed fluoroscopi charlene and left it in place. I left the 5-[place] Konger ureteral access catheter in place over the wire to a ttempt to dilate the ureter passively while I turned my attention back to the left side. Using a dual-lumen catheter, I passed the dual-lumen catheter into the distal ureter to dilate it and inject the contrast to confirm appropriate intraluminal location. I then passed a Bentson guidewire via the second lumen of the dual-lumen catheter alongside the indwelling safety wire. The dual-lume n catheter was removed and then I passed the flexible ureteroscope along the Bentson guidewire into t he upper pole of the kidney. Of note, prior to passing the Bentson guidewire, a semi-rigid ureterosc opy was performed using direct vision alongside the indwelling safety wire and I was able to navigate up into the mid proximal ureter where no stone was noted. As a result, I performed a flexible urete roscopy as I had just begun describing. Continuing with flexible ureteroscopy, I surveyed each of the calices of the kidney, starting in the upper pole and the upper mid and mid pole and lower pole calices. Only a few tiny fragments of calcu li were noted, each less than a millimeter in diameter and too small to be grasped using t he basket. No mucosal filling defects were noted throughout. As a result, I then backed into the re nal pelvis, which was also surveyed along with the proximal ureter down through the mid and distal ur eter on the way out. No calculi of any significant size were noted and the previously observed 5-6 m m calculus was no longer present. As a result, I turned my attention to the right side where I used the dual-lumen catheter again to dilate the distal ureter and pass a Sensor wire back into the [facility] [employer] system alongside the Bentson guidewire. I then attempted to perform direct vision flexible uret eroscopy over the Bentson guidewire, but it was aborted at the level of the ureteral orifice. As a r esult, I utilized a ureteral access sheath to gain access into the distal ureter and this time was ab le to navigate the flexible ureteroscope all the way into the upper pole of the kidney. I then surve yed each of the calices of the kidney, and similar to the left side, I only encountered a submillimet er stone fragment or two, which were too small to basket. No other filling defects or mucosal lesion s were noted. As a result, I surveyed down through the pelvis into the proximal ureter and there was a degree of mucosal flap consistent with significant right UPJ obstruction. I surveyed down through the mid and distal ureter without any other mucosal lesions or stones noted, and ureteroscopy with p yeloscopy on the right side was similarly completed. I then placed a left ureteral stent using fluoroscopic guidance and left it tethered to string since the obstruction noted on the left was relatively insignificant. I then passed the rigid cystoscope o patrick the indwelling safety wire for the right side and directly passed another 6-Hong Konger x 24 cm double -J stent, this time with the tether removed, into the right side. A coil was observed fluoroscopical ly in the upper pole and one cystoscopically was formed within the bladder. I then decompressed her bladder of fluid and urine, and the contrast within the kidneys did rapidly decompress. She was then taken out of the lithotomy position after the left ureteral stent tether was secured to her introitu s using Mastisol and Steri-Strips. She was awakened from general anesthesia, transferred to a [facility], and then transferred to the recovery room in good condition. Complications: None. Discharge Disposition: She should follow up in the Urology Clinic to discuss the findings ureterosco pically of right-sided UPJ obstruction, much more significant than any potential left-sided obstructi on. The left ureteral stent may be removed within the next few days since it is on a tether, but the right ureteral stent will be removed following discussion with the patient about potential options f or management or repair going forward. CARLOS/[place] Voice ID: [id number] Report ID: [id number]
== END 2021-09-21 10:27 | disposition home or self-care (01) ==
LOC: OR 06:25
PROVIDERS: ATTEND Urology
PROC: 0T9880Z Drainage of Bilateral Ureters with Drainage Device, Via Natural or Artificial Opening Endoscopic (ICD-10-PCS; principal; 2021-09-21 07:30)
DX: N20.2 Calculus of kidney with calculus of ureter (principal); R31.0 Gross hematuria; Z20.822 Contact with and (suspected) exposure to COVID-19; E11.9 Type 2 diabetes mellitus without complications; I10 Essential (primary) hypertension; I48.91 Unspecified atrial fibrillation; M19.90 Unspecified osteoarthritis, unspecified site
CPT/HCPCS: 87088; 85025; 87086; 80048; 36415; 85610; 82947; 71046; 74450; 51610; 52332; 52351; U0002; J2704; J1200; J1580; J3010 ×2; J1100; J7030; J2405; J0290

== ENCOUNTER 2023-02-03 00:33 | Emergency (ER) | payer OTHER ==
--- OUTSIDE RECORDS SUMMARY | 2023-02-03 00:38 | XMS REPORT | Continuity of Care Document ---
:1940 Author Organization [facility] t Address [address] [facility] [address] [place] [id number] Care Team Providers Name Role Phone Mandy Doherty MD Primary Care Physician Manjit Vidal Attending Clinician Unavailable Minerva Castañeda Attending Clinician Unavailable Hany Love Attending Clinician Unavailable Mandy Doherty Attending Clinician Unavailable Valeria Singh Attending Clinician Unavailable Julieta KIMBLE, Dany Landers Attending Clinician [phone] Ann Stiles MD Attending Clinician Ajibade_O_CHRISTAL Attending Clinician Unavailable Ige-Luh_Kingston_CHRISTAL Attending Clinician Unavailable [phone] Admitting Clinician Unavailable Nixon_Amy_CHRISTAL Admitting Clinician Unavailable Ige-Luh_King[place]_CHRISTAL Admitting Clinician Unavailable ANN PIÑA Admitting Clinician Unavailable Payers Payer Name Policy Type Policy Number Effective Date Expiration Date S cyrus [facility] [place] - [id number] 2019 [employer] 00:00:00 (MEDICARE REPLACEMENT/ADVANT AGE - HMO) Problems Condition Condition Condition Status Onset Resolution Last Treating Co mments Source Name Details Category Date Date Treatment Clinician Date Hypertensi Hypertensi Problem Active 2019-05 V illage ve heart ve Heart 0-07 Family disease Disease 00:00: Practic with with 00 e congestive Congestive heart Heart failure Failure Body mass Body Mass Problem Active Gutierrez anna index 30+ Index 30+ 7-13 Fami ly - obesity - Obesity 00:00: Prac tic 00 e Anxiety Anxiety Problem Active [facility] 7-13 Family 00:00: Practic 00 e Mild Mild Problem Active [facility] intermitte Intermitte 7-13 [facility] nt asthma nt Asthma 00:00: Prac tic 00 e Lumbar Lumbar Problem Active [facility] spondylosi Spondylosi 7-13 [facility] s s 00:00: Practic 00 e Mixed Mixed Problem Active [facility] hyperlipid Hyperlipid 7-13 [facility] emia due emia Due 00:00: Practi c to type 2 to Type 2 00 e diabetes Diabetes mellitus Mellitus Vaginal Vaginal Disease Active [facility] prolapse prolapse 09-19 st 00:00: Hospita 00 l Polyneurop Polyneurop Problem Active [facility] ill[facility] athy due athy Due 4-16 Family to to 00:00: Practic diabetes Diabetes 00 e mellitus Mellitus Hyperchole Hyperchole Problem Active V illage sterolemia sterolemia 4-16 [facility] 00:00: Practic 00 e 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 4-16 Family depressive Depressive 00:00: Pr actic episodes, Episodes, 00 e mild Mild Congestive Congestive Problem Active [facility] heart Heart 4-16 Family failure Failure 00:00: Practic 00 e 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 [facility] positive positive 05-16 st 00:00: Hospita 00 l Gastroesop GERD Problem Active Commo n hageal (gastroeso Spirit reflux phageal - [facility] disease reflux St disease) [facility] Allergic Allergic Problem Active Commo n rhinitis rhinitis Spirit - [facility] Neuropathy Neuropathy Problem Active C ommon Spirit [facility] 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 of right of right St wrist wrist [facility] Chronic +5th digit Problem Active Comm on atrial eff Spirit fibrillati 01/29/19*Ch - [facility] on [facility] atrial [facility] fibrillati Medica l on Center Pelvic Problem Active Common pressure Spirit in female [facility] Urinary Urinary Problem Active Common incontinen incontinen Sp akin ce ce - [facility] [id number] Bladder Problem Active Commo n prolapse, Spirit female, - [facility] acquired [facility] Spinal Spinal Problem Active Common stenosis stenosis Spirit in of [facility] cervical occipito-a region tlanto-axi [facility] Mixed Depression Problem Active Commo n anxiety with Spirit and anxiety - [facility] depressive [facility] Obstructiv Obstructiv Problem Active C ommon e sleep e sleep Spirit apnea apnea - [facility] [id number] Hyperlipid Problem Active Com mon emia, Spirit unspecifie - 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 mellitus [facility] diabetic Medical polyneurop Center athy, without long-term current use of insulin [id number] Other Problem Active Common chronic [facility] pain [facility] Recurrent Recurrent Problem Active Com mon urinary urinary [facility] tract tract - 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 of [facility] cerebral arteries [id number] Glaucoma Problem Active Commo n of both Spirit eyes, - [facility] unspecifie [facility] glaucoma [facility] Degenerati Degenerati Problem Active C ommon on of on of Spirit lumbar lumbar - [facility] interverte interverte bra disc bral disc [facility] [id number] Dizziness Problem Active Com mon Spirit [facility] [id number] Lesion of Problem Active Co mmon [id number] skin of Spirit nose [facility] [id number] Right leg Problem Active Com mon pain [facility] [id number] Ureterolit Problem Active Com mon hiasis [facility] [id number] Uterine Problem Active Common prolapse [facility] [id number] Gross Problem Active Common hematuria [facility] [id number] [place] [id number] tunnel Spirit syndrome - [facility] of left [facility] [id number] [place] Problem [place] [id number] carotid [facility] artery - [facility] stenosis [facility] [id number] History of Problem Active Co mmon skin [facility] cancer [facility] [id number] Iron Problem Active Common deficiency [facility] anemia, - CHI unspecifie d iron [facility] deficiency Medica l anemia Center type [id number] Obstructio Problem Active Com mon n of right Spirit ureteropel - [facility] dani [facility] Allergies, Adverse Reactions, Alerts Allergy Allergy Status Severity Reaction(s) Onset Inactive Treating Comm ents Source Name Type Date Date Clinician Morphine Propensi Active Swelling Meth frankie ty to 07-03 st adverse 00:00: Hospita reaction 00 l s to drug Hydrocod Propensi Active Swelling 2017-05 Meth frankie one ty to 05-15 adverse 00:00: Hospita reaction 00 l s to drug Iodine Propensi Active Swelling 2017-05 Method i ty to 05-15 adverse 00:00: Hospita reaction 00 l s to drug Tramadol Propensi Active Swelling 2017-05 Meth frankie ty to 05-15 adverse 00:00: Hospita reaction 00 l s to drug Hydrocod Allergy Active [facility] Family substanc Practic e e Iodine Allergy Active [facility] substanc Practic e e Tramadol Allergy Active [facility] substanc Practic e e morphine morphine Active Unknown Commo n [facility] 463 Drug Active Unknown Common allergy [facility] fenofibr fenofibr Active dizziness Com mon ate ate [facility] tramadol tramadol Active Unknown Commo n [facility] hydrocod hydrocod Active Unknown Commo n one one [facility] Family History Family Member Diagnosis Comments Start Date Stop Date Source Natural father Prostate cancer [facility] Natural sister Breast cancer [facility] Natural daughter Breast [facility] Social History Social Habit Start Date Stop Date Quantity Comments Source History SDOH [facility] al History SDOH [facility] History [facility] Alcohol Comment Hospital History of Tobacco Common Spirit - Use [facility] Sexual orientation [facility] History of Social 2022-08-03 2022-08-[address] function 00:00:00 00:00:00 Hospital Alcohol intake 2019-09-27 2019-09-27 Ex-drinker [facility] 00:00:00 00:00:00 (finding) Hospital History SDOH 2019-09-20 2019-09-20 1 [facility] Alcohol Frequency 00:00:00 00:00:00 Hospita l Tobacco Comment 2018-05-07 2018-05-[address] 00:00:00 00:00:00 Hospital Tobacco use and 2018-03-15 2018-03-15 Smokeless [facility] exposure 00:00:00 00:00:00 tobacco non-user Hospital Sex Assigned At [birth year] [facility] 00:00:[facility] 00:[facility]:00 Hospital Smoking Status Start Date Stop Date Source Former [facility] Never Smoker Common [facility] Medications Ordered Filled Start Stop Current Ordering Indication Dosage Frequency Signature Comments Components Source Medication Medication Date Date Medication? Clinician (SIG) Name Name Amoxicillin Amoxicillin 2021- No 1{capsu TID Amoxicilli 500 MG 500 MG 11-15 le} n 500 MG 00:00: 00:00 00 :00 Amoxicillin Amoxicillin 2021- No 1{capsu TID Amoxicilli 500 MG 500 MG 11-15 le} n 500 MG 00:00: 00:00 00 :00 Oxybutynin Oxybutynin 2021- No 1{table QD Oxybutynin Chloride ER Chloride ER 11-05 t} Chloride 5 MG 5 MG 00:00: 00:00 ER 5 MG 00 :00 Oxybutynin Oxybutynin 2021- No 1{table QD Oxybutynin Chloride ER Chloride ER 11-05 t} Chloride 5 MG 5 MG 00:00: 00:00 ER 5 MG 00 :00 Oxybutynin Oxybutynin 0 2021- No 1{table QD Oxybutynin Chloride ER Chloride ER 11-0507 t} Chloride 5 MG 5 MG 00:00: 00:00 ER 5 MG 00 :00 diphenhydrA diphenhydrA 0 No diphenhydr MINE HCl 50 MINE HCl 50 6-09 AMINE HCl MG MG 00:00: 50 MG 00 diphenhydrA diphenhydrA 2021-0 No diphenhydr MINE HCl 50 MINE HCl 50 6-09 AMINE HCl MG MG 00:00: 50 MG 00 diphenhydrA diphenhydrA 2021-0 No diphenhydr MINE HCl 50 MINE HCl 50 6-09 AMINE HCl MG MG 00:00: 50 MG 00 diphenhydrA diphenhydrA 2021-0 No diphenhydr MINE HCl 50 MINE HCl 50 6-09 AMINE HCl MG MG 00:00: 50 MG 00 diphenhydrA diphenhydrA 2021-0 No diphenhydr MINE HCl 50 MINE HCl 50 6-09 AMINE HCl MG MG 00:00: 50 MG 00 methylPREDN methylPREDN 2021- No methylPRED ISolone 32 ISolone 32 10-07 06-10 NISolone MG MG 00:00: 00:00 32 MG 00 :00 One Touch One Touch 2019-0 Yes Mandy one strip Common Verio Verio 6-24 [facility] 00:00: - [facility] 00 [facility] gabapentin 2020-0 Yes 300mg [id number] Take 300 [facility] (NEURONTIN) 5-23 [id number] mg by s t 300 mg 13:08: 3D mouth 3 Hospita capsule 49 (three) l times a day. multivitami 2020-0 Yes 1{tbl} QD Take 1 Me thodi n/iron/foli 5-[address] c acid 13:08: mouth Hospita (CENTRUM 49 daily. l COMPLETE ORAL) vitamin B 2020-0 Yes 1{tbl} QD Take 1 Meth frankie complex/fol 5-[address] ic acid (B 13:08: mouth Hospit a COMPLEX 100 49 daily. l ORAL) gabapentin 2020-0 Yes 300mg [id number] Take 300 [facility] (NEURONTIN) 5-23 [id number] mg by s t 300 mg 13:08: 3D mouth 3 Hospita capsule 49 (three) l times a day. multivitami 2020-0 Yes 1{tbl} QD Take 1 Me thodi n/iron/foli 5-[address] c acid 13:08: mouth Hospita (CENTRUM 49 daily. l COMPLETE ORAL) vitamin B 2020-0 Yes 1{tbl} QD Take 1 Meth frankie complex/fol 5-[address] ic acid (B 13:08: mouth Hospit a COMPLEX 100 49 daily. l ORAL) gabapentin 2020-0 Yes 300mg Q.[id number] Take 300 [facility] (NEURONTIN) 5-23 [id number] mg by s t 300 mg 13:08: 3D mouth 3 Hospita capsule 49 (three) l times a day. multivitami 2020-0 Yes 1{tbl} QD Take 1 Me thodi n/iron/foli 5-[address] c acid 13:08: mouth Hospita (CENTRUM 49 daily. l COMPLETE ORAL) vitamin B 2020-0 Yes 1{tbl} QD Take 1 Meth frankie complex/fol 5-[address] ic acid (B 13:08: mouth Hospit a COMPLEX 100 49 daily. l ORAL) mirabegron 2020-0 Yes 50mg QD Take 1 Metho di (MYRBETRIQ) 2-12 tablet (50 st 50 mg 00:00: mg total) Hospita tablet 00 by mouth l extended daily. release 24 hr mirabegron 2020-0 Yes 50mg QD Take 1 Metho di (MYRBETRIQ) 2-12 tablet (50 st 50 mg 00:00: mg total) Hospita tablet 00 by mouth l extended daily. release 24 hr mirabegron 2020-0 Yes 50mg QD Take 1 Metho di (MYRBETRIQ) 2-12 tablet (50 st 50 mg 00:00: mg total) Hospita tablet 00 by mouth l extended daily. release 24 hr Ketoconazol Ketoconazol 2018- 2020- No Mandy 1 Common e e 01-16 Millender applicatio Spi rit 00:00: 00:00 n to - CHI 00 :[address] area(s) [facility] amLODIPine 2019-0 Yes 5mg QD Take 5 mg Me thodi (NORVASC) 5 2-[address] mg tablet 00:00: daily. Hospit a l calcium Yes 1{tbl} Q.5D Take 1 Method i carbonate-v 2-[address] itamin D3 00:00: mouth 2 Hospi ta 600 00 (two) l mg(1,500mg) times a -400 unit day. per tablet amLODIPine Yes 5mg QD Take 5 mg Me thodi (NORVASC) 5 2-[address] mg tablet 00:00: daily. Hospit a l calcium Yes 1{tbl} Q.5D Take 1 Method i carbonate-v 2-[address] itamin D3 00:00: mouth 2 Hospi ta 600 00 (two) l mg(1,500mg) times a -400 unit day. per tablet amLODIPine Yes 5mg QD Take 5 mg Me thodi (NORVASC) 5 2-[address] mg tablet 00:00: daily. Hospit a l calcium Yes 1{tbl} Q.5D Take 1 Method i carbonate-v 2-[address] itamin D3 00:00: mouth 2 Hospi ta 600 00 (two) l mg(1,500mg) times a -400 unit day. per tablet ONETOUCH 2017-05 Yes Methodi VERIO strip 0-31 st test strips 00:00: Hospit a l montelukast 2017-05 Yes 10mg QD Take 10 mg [facility] (SINGULAIR) 0-[address] 10 mg 00:00: daily. Hospita tablet l ONETOUCH 2017-05 Yes [facility] VERIO strip 0-31 st test strips 00:00: Hospit a l montelukast 2017-05 Yes 10mg QD Take 10 mg [facility] (SINGULAIR) 0-[address] 10 mg 00:00: daily. Hospita tablet 00 l ONETOUCH 2017-05 Yes [facility] VERIO strip 0-31 st test strips 00:00: Hospit a l montelukast 2017-05 Yes 10mg QD Take 10 mg [facility] (SINGULAIR) 0-[address] 10 mg 00:00: daily. Hospita tablet 00 l sotalol 2017-05 Yes Q.5D Take by [facility] (BETAPACE) 0-[address] 80 MG 00:00: (two) Hospita tablet 00 times a l day. Pt unsure of dosage. Takes 1/2 tab bid sotalol 2018-1 Yes Q.5D Take by [facility] (BETAPACE) 0-[address] 80 MG 00:00: (two) Hospita tablet 00 times a l day. Pt unsure of dosage. Takes 1/2 tab bid sotalol 2018-1 Yes Q.5D Take by [facility] (BETAPACE) 0-[address] 80 MG 00:00: (two) Hospita tablet 00 times a l day. Pt unsure of dosage. Takes 1/2 tab bid citalopram 2018-0 Yes 20mg QD Take 20 mg M ethodi (CeleXA) 20 9- by mouth st MG tablet 00:00: daily. Hospit a 00 l metFORMIN 2018-0 Yes 1000mg Q.5D Take 1,000 [facility] (GLUCOPHAGE 9-[address] ) 1,000 mg 00:00: mouth 2 Hosp chuck tablet 00 (two) l times a day with meals. citalopram 2018-0 Yes 20mg QD Take 20 mg M ethodi (CeleXA) 20 9- by mouth st MG tablet 00:00: daily. Hospit a 00 l metFORMIN 2018-0 Yes 1000mg Q.5D Take 1,000 [facility] (GLUCOPHAGE 9-[address] ) 1,000 mg 00:00: mouth 2 Hosp chuck tablet 00 (two) l times a day with meals. citalopram 2018-0 Yes 20mg QD Take 20 mg M ethodi (CeleXA) 20 9- by mouth st MG tablet 00:00: daily. Hospit a 00 l metFORMIN 2018-0 Yes 1000mg Q.5D Take 1,000 [facility] (GLUCOPHAGE 9-[address] ) 1,000 mg 00:00: mouth 2 Hosp chuck tablet 00 (two) l times a day with meals. simvastatin 2018-0 Yes 40mg QD Take 40 mg [facility] (ZOCOR) 40 8-[address] MG tablet 00:00: every Hospita 00 evening. l simvastatin 2018-0 Yes 40mg QD Take 40 mg [facility] (ZOCOR) 40 8-[address] MG tablet 00:00: every Hospita 00 evening. l simvastatin 2018-0 Yes 40mg QD Take 40 mg [facility] (ZOCOR) 40 8-[address] MG tablet 00:00: every Hospita 00 evening. l amlodipine amlodipine No amlodipine [facility] 5 mg tablet 5 mg tablet 5 mg F amily TAKE 1 TAKE 1 tablet Practic TABLET BY TABLET BY TAKE 1 e MOUTH EVERY MOUTH EVERY TABLET BY DAY DAY MOUTH EVERY DAY baclofen 10 baclofen 10 No 1 QID baclofen Village mg tablet mg tablet 10 mg Fami ly Take 1 Take 1 tablet Practic tablet 4 tablet 4 Take 1 e times a day times a day tablet 4 by oral by oral times a route. route. day by oral route. buspirone buspirone No buspirone [facility] 7.5 mg 7.5 mg 7.5 mg Family tablet TAKE tablet TAKE tablet Practic 1 TABLET BY 1 TABLET BY TAKE 1 e MOUTH TWICE MOUTH TWICE TABLET BY A DAY A DAY MOUTH NEEDED FOR NEEDED FOR TWICE A ANXIETY ANXIETY DAY NEEDED FOR ANXIETY calcium calcium No calcium Vill[facility] e carbonate carbonate carbonate Family 600 mg 600 mg 600 mg Practic (1,500 (1,500 (1,500 e mg)-vitamin mg)-vitamin mg)-vitami D3 400 unit D3 400 unit n D3 400 tablet TAKE tablet TAKE unit 1 TABLET BY 1 TABLET BY tablet MOUTH TWICE MOUTH TWICE TAKE 1 A DAY A DAY TABLET BY MOUTH TWICE A DAY citalopram citalopram No citalopram [facility] 20 mg 20 mg 20 mg Family tablet TAKE tablet TAKE tablet Practic 1 TABLET BY 1 TABLET BY TAKE 1 e MOUTH EVERY MOUTH EVERY TABLET BY DAY DAY MOUTH EVERY DAY gabapentin gabapentin No gabapentin [facility] 300 mg 300 mg 300 mg Family capsule capsule capsule Practi c TAKE 1 TAKE 1 TAKE 1 e CAPSULE BY CAPSULE BY CAPSULE BY MOUTH IN MOUTH IN MOUTH IN THE MORNING THE MORNING THE AND 2 AND 2 MORNING CAPSULES IN CAPSULES IN AND 2 EVENING EVENING CAPSULES NEEDED FOR NEEDED FOR IN EVENING PAIN PAIN NEEDED FOR PAIN ketorolac ketorolac No 1 Q6H ketorolac [facility] 10 mg 10 mg 10 mg Family tablet Take tablet Take tablet Practic 1 tablet 1 tablet Take 1 e every 6 every 6 tablet hours by hours by every 6 oral route. oral route. hours by oral route. meloxicam meloxicam No meloxicam [facility] 7.5 mg 7.5 mg 7.5 mg Family tablet TAKE tablet TAKE tablet Practic 1 TABLET BY 1 TABLET BY TAKE 1 e MOUTH EVERY MOUTH EVERY TABLET BY DAY DAY MOUTH EVERY DAY metformin metformin No metformin [facility] 1,000 mg 1,000 mg 1,000 mg Fam tina tablet TAKE tablet TAKE tablet Practic 1 TABLET BY 1 TABLET BY TAKE 1 e MOUTH TWICE MOUTH TWICE TABLET BY A DAY WITH A DAY WITH MOUTH MEALS MEALS TWICE A DAY WITH MEALS montelukast montelukast No 1 Q1D montelatakas [facility] 10 mg 10 mg t 10 mg Family tablet Take tablet Take tablet Practic 1 tablet 1 tablet Take 1 e every day every day tablet by oral by oral every day route. route. by oral route. nystatin nystatin No nystatin Gutierrez anna 100,000 100,000 100,000 Family unit/gram unit/gram unit/gram Practic topical topical topical e cream APPLY cream APPLY cream TO AFFECTED TO AFFECTED APPLY TO AREA TWICE AREA TWICE AFFECTED A DAY A DAY AREA TWICE A DAY OneTouch OneTouch No OneTouch Gutierrez anna [facility] Lancets 33 Lancets 33 Lancets 33 Practic gauge gauge gauge e OneTouch OneTouch No OneTouch [facility] Verio test Verio test Verio test Family strips TEST strips TEST strips Practic ONCE DAILY ONCE DAILY TEST ONCE e DAILY simvastatin [facility]vastatin No [facility] 40 mg 40 mg n 40 mg Family tablet TAKE tablet TAKE tablet Practic 1 TABLET BY 1 TABLET BY TAKE 1 e MOUTH EVERY MOUTH EVERY TABLET BY DAY IN THE DAY IN THE MOUTH EVENING EVENING EVERY DAY IN THE EVENING sotalol 80 sotalol 80 No sotalol 80 Village mg tablet mg tablet mg tablet Family TAKE 1/2 TAKE 1/2 TAKE 1/2 Pra ctic TABLET BY TABLET BY TABLET BY e MOUTH TWICE MOUTH TWICE MOUTH DAILY DAILY TWICE DAILY Xarelto 20 Xarelto 20 No Xarelto 20 Village mg tablet mg tablet mg tablet Family TAKE 1 TAKE 1 TAKE 1 Practic TABLET BY TABLET BY TABLET BY e MOUTH EVERY MOUTH EVERY MOUTH DAY DAY EVERY DAY Xarelto Xarelto Yes Mandy 1 tablet Comm on Millender with food Spiri t [facility] Pantoprazol Pantoprazol Yes Mandy 1 tablet Common e Sodium e Sodium Millender Sp akin [facility] Neurontin Neurontin Yes Mandy as Comm on Millender directed [facility] Betapace Betapace Yes Mandy 1/2 tablet Common Millender [facility] Singulair Singulair Yes Mandy 1 tablet Common [facility] - [facility] Gabapentin Gabapentin Yes Mandy 2 capsules Common [facility] Xarelto Xarelto Yes Mandy 1 tablet Comm on [facility] Spirit [facility] Metformin Metformin Yes Mandy 1 tablet Common HCl HCl Millender with a Spirit meal - [facility] Veramyst Veramyst Yes Mandy not Common Millender defined Spirit [facility] Sotalol HCl Sotalol HCl Yes Mandy 1/2 tablet Common [facility] Metformin Metformin Yes Mandy TAKE 1 Co mmon HCl HCl Millender TABLET BY Spiri t MOUTH - CHI TWICE A [facility] Celexa Celexa Yes Mandy TAKE 1 Common Millender TABLET BY Spiri t MOUTH - CHI EVERY DAY [facility] Vascepa Vascepa Yes Mandy 2 capsules Co mmon Millender with meals Spir it - [facility] Simvastatin Simvastatin Yes Mandy 1 tablet Common Millender in the Spirit evening - [facility] Yes Mandy 1 Common ne ne Millender applicatio Spir it Acetonide Acetonide n to - CHI affected [facility] Citalopram Citalopram Yes Mandy 1 tablet Common Hydrobromid Hydrobromid [facility] Spirit e e - [facility] Yes Mandy 1 Common ne ne Millender applicatio Spir it Acetonide Acetonide n to - CHI affected [facility] Folic Acid Folic Acid Yes Mandy 1 tablet Common [facility] - [facility] Advil Advil Yes Mandy (OTC) 2 Common Millender tablets as Spir it needed for - CHI pain; take St with food [facility] or milk as Medical needed Center Celexa Celexa Yes Mandy 1 tablet Common [facility] Multivitami Multivitami Yes Mandy as Common n Adult n Adult Millender directed Spirit [facility] Zyrtec Zyrtec Yes Mandy 1 tablet Common Allergy Allergy Millender Spir it - [facility] Colestipol Colestipol Yes Mandy TAKE 2 Common HCl HCl Millender TABLETS BY Spir it MOUTH - CHI TWICE A [facility] Simvastatin Simvastatin Yes Mandy 1 tablet Common Millender in the Spirit evening - [facility] BusPIRone BusPIRone Yes Mandy 1 tablet Common HCl HCl Millender as needed Spiri t for - CHI anxiety [facility] Nystatin Nystatin Yes Mandy 1 Common Millender applicatio Spir it n to - CHI affected St area(s) [facility] Betapace 80 Betapace 80 No BID Betapace MG MG 80 MG Vitamin B6 Vitamin B6 No 1{table QD Vitamin B6 100 MG 100 MG t} 100 MG busPIRone busPIRone No BID busPIRone HCl 7.5 MG HCl 7.5 MG HCl 7.5 MG clonazePAM clonazePAM No 1{table QD clonazePAM 0.5 MG 0.5 MG t_at_be 0.5 MG dtime} amLODIPine amLODIPine No 1{table QD amLODIPine Besylate 5 Besylate 5 t} Besylate 5 MG MG MG Citalopram Citalopram No 1{table QD Citalopram Hydrobromid Hydrobromid t} Hydrobromi e 20 MG e 20 MG de 20 MG Simvastatin Simvastatin No 1{table QD Simvastati 40 MG 40 MG t_in_th n 40 MG e_eveni ng} Naproxen Naproxen No BID Naproxen 500 MG 500 MG 500 MG Pantoprazol Pantoprazol No 1{table QD Pantoprazo e Sodium 40 e Sodium 40 t} le Sodium MG MG 40 MG CeleXA 20 CeleXA 20 No 1{table QD CeleXA 20 MG MG t} MG Xarelto 20 Xarelto 20 No 1{table QD Xarelto 20 MG MG t_with_ MG food} busPIRone busPIRone No 1{table BID busPIRone HCl 7.5 MG HCl 7.5 MG t} HCl 7.5 MG Fish Oil Fish Oil No 1{capsu QD Fish Oil 1200 MG 1200 MG le} 1200 MG Gabapentin Gabapentin No Gabapentin 300 MG 300 MG 300 MG Meloxicam Meloxicam No 1{table QD Meloxicam 7.5 MG 7.5 MG t} 7.5 MG Multivitami Multivitami No Multivitam n Adult - n Adult - in Adult - Singulair Singulair No 1{table QD Singulair 10 MG 10 MG t} 10 MG amLODIPine amLODIPine No 1{table QD amLODIPine Besylate 5 Besylate 5 t} Besylate 5 MG MG MG Betapace 80 Betapace 80 No BID Betapace MG MG 80 MG Simvastatin Simvastatin No 1{table QD Simvastati 40 MG 40 MG t_in_th n 40 MG e_eveni ng} clonazePAM clonazePAM No 1{table QD clonazePAM 0.5 MG 0.5 MG t_at_be 0.5 MG dtime} busPIRone busPIRone No BID busPIRone HCl 7.5 MG HCl 7.5 MG HCl 7.5 MG Citalopram Citalopram No 1{table QD Citalopram Hydrobromid Hydrobromid t} Hydrobromi e 20 MG e 20 MG de 20 MG Naproxen Naproxen No BID Naproxen 500 MG 500 MG 500 MG Pantoprazol Pantoprazol No 1{table QD Pantoprazo e Sodium 40 e Sodium 40 t} le Sodium MG MG 40 MG CeleXA 20 CeleXA 20 No 1{table QD CeleXA 20 MG MG t} MG Gabapentin Gabapentin No Gabapentin 300 MG 300 MG 300 MG Xarelto 20 Xarelto 20 No 1{table QD Xarelto 20 MG MG t_with_ MG food} busPIRone busPIRone No 1{table BID busPIRone HCl 7.5 MG HCl 7.5 MG t} HCl 7.5 MG Singulair Singulair No 1{table QD Singulair 10 MG 10 MG t} 10 MG Fish Oil Fish Oil No 1{capsu QD Fish Oil 1200 MG 1200 MG le} 1200 MG Meloxicam Meloxicam No 1{table QD Meloxicam 7.5 MG 7.5 MG t} 7.5 MG Multivitami Multivitami No Multivitam n Adult - n Adult - in Adult - Vitamin B6 Vitamin B6 No 1{table QD Vitamin B6 100 MG 100 MG t} 100 MG Betapace 80 Betapace 80 No BID Betapace MG MG 80 MG busPIRone busPIRone No BID busPIRone HCl 7.5 MG HCl 7.5 MG HCl 7.5 MG clonazePAM clonazePAM No 1{table QD clonazePAM 0.5 MG 0.5 MG t_at_be 0.5 MG dtime} amLODIPine amLODIPine No 1{table QD amLODIPine Besylate 5 Besylate 5 t} Besylate 5 MG MG MG Citalopram Citalopram No 1{table QD Citalopram Hydrobromid Hydrobromid t} Hydrobromi e 20 MG e 20 MG de 20 MG Simvastatin Simvastatin No 1{table QD Simvastati 40 MG 40 MG t_in_th n 40 MG e_eveni ng} Naproxen Naproxen No BID Naproxen 500 MG 500 MG 500 MG Pantoprazol Pantoprazol No 1{table QD Pantoprazo e Sodium 40 e Sodium 40 t} le Sodium MG MG 40 MG CeleXA 20 CeleXA 20 No 1{table QD CeleXA 20 MG MG t} MG Gabapentin Gabapentin No Gabapentin 300 MG 300 MG 300 MG Xarelto 20 Xarelto 20 No 1{table QD Xarelto 20 MG MG t_with_ MG food} busPIRone busPIRone No 1{table BID busPIRone HCl 7.5 MG HCl 7.5 MG t} HCl 7.5 MG Singulair Singulair No 1{table QD Singulair 10 MG 10 MG t} 10 MG Fish Oil Fish Oil No 1{capsu QD Fish Oil 1200 MG 1200 MG le} 1200 MG Meloxicam Meloxicam No 1{table QD Meloxicam 7.5 MG 7.5 MG t} 7.5 MG Multivitami Multivitami No Multivitam n Adult - n Adult - in Adult - Vitamin B6 Vitamin B6 No 1{table QD Vitamin B6 100 MG 100 MG t} 100 MG Betapace 80 Betapace 80 No BID Betapace MG MG 80 MG clonazePAM clonazePAM No 1{table QD clonazePAM 0.5 MG 0.5 MG t_at_be 0.5 MG dtime} amLODIPine amLODIPine No 1{table QD amLODIPine Besylate 5 Besylate 5 t} Besylate 5 MG MG MG Citalopram Citalopram No 1{table QD Citalopram Hydrobromid Hydrobromid t} Hydrobromi e 20 MG e 20 MG de 20 MG busPIRone busPIRone No BID busPIRone HCl 7.5 MG HCl 7.5 MG HCl 7.5 MG Naproxen Naproxen No BID Naproxen 500 MG 500 MG 500 MG Pantoprazol Pantoprazol No 1{table QD Pantoprazo e Sodium 40 e Sodium 40 t} le Sodium MG MG 40 MG CeleXA 20 CeleXA 20 No 1{table QD CeleXA 20 MG MG t} MG Gabapentin Gabapentin No Gabapentin 300 MG 300 MG 300 MG Xarelto 20 Xarelto 20 No 1{table QD Xarelto 20 MG MG t_with_ MG food} busPIRone busPIRone No 1{table BID busPIRone HCl 7.5 MG HCl 7.5 MG t} HCl 7.5 MG Singulair Singulair No 1{table QD Singulair 10 MG 10 MG t} 10 MG Fish Oil Fish Oil No 1{capsu QD Fish Oil 1200 MG 1200 MG le} 1200 MG Simvastatin Simvastatin No 1{table QD Simvastati 40 MG 40 MG t_in_th n 40 MG e_eveni ng} Meloxicam Meloxicam No 1{table QD Meloxicam 7.5 MG 7.5 MG t} 7.5 MG Multivitami Multivitami No Multivitam n Adult - n Adult - in Adult - Vitamin B6 Vitamin B6 No 1{table QD Vitamin B6 100 MG 100 MG t} 100 MG amLODIPine amLODIPine No 1{table QD amLODIPine Besylate 5 Besylate 5 t} Besylate 5 MG MG MG CeleXA 20 CeleXA 20 No 1{table QD CeleXA 20 MG MG t} MG Simvastatin Simvastatin No 1{table QD Simvastati 40 MG 40 MG t_in_th n 40 MG e_eveni ng} Meloxicam Meloxicam No 1{table QD Meloxicam 7.5 MG 7.5 MG t} 7.5 MG Multivitami Multivitami No Multivitam n Adult - n Adult - in Adult - Singulair Singulair No 1{table QD Singulair 10 MG 10 MG t} 10 MG Gabapentin Gabapentin No Gabapentin 300 MG 300 MG 300 MG Betapace 80 Betapace 80 No BID Betapace MG MG 80 MG Fish Oil Fish Oil No 1{capsu QD Fish Oil 1200 MG 1200 MG le} 1200 MG Vitamin B6 Vitamin B6 No 1{table QD Vitamin B6 100 MG 100 MG t} 100 MG busPIRone busPIRone No 1{table BID busPIRone HCl 7.5 MG HCl 7.5 MG t} HCl 7.5 MG Naproxen Naproxen No BID Naproxen 500 MG 500 MG 500 MG Pantoprazol Pantoprazol No 1{table QD Pantoprazo e Sodium 40 e Sodium 40 t} le Sodium MG MG 40 MG Citalopram Citalopram No 1{table QD Citalopram Hydrobromid Hydrobromid t} Hydrobromi e 20 MG e 20 MG de 20 MG clonazePAM clonazePAM No 1{table QD clonazePAM 0.5 MG 0.5 MG t_at_be 0.5 MG dtime} Xarelto 20 Xarelto 20 No 1{table QD Xarelto 20 MG MG t_with_ MG food} busPIRone busPIRone No BID busPIRone HCl 7.5 MG HCl 7.5 MG HCl 7.5 MG Fish Oil Fish Oil No 1{capsu QD Fish Oil 1200 MG 1200 MG le} 1200 MG Xarelto 20 Xarelto 20 No 1{table QD Xarelto 20 MG MG t_with_ MG food} CeleXA 20 CeleXA 20 No 1{table QD CeleXA 20 MG MG t} MG Gabapentin Gabapentin No Gabapentin 300 MG 300 MG 300 MG Singulair Singulair No 1{table QD Singulair 10 MG 10 MG t} 10 MG Multivitami Multivitami No Multivitam n Adult - n Adult - in Adult - busPIRone busPIRone No 1{table BID busPIRone HCl 7.5 MG HCl 7.5 MG t} HCl 7.5 MG amLODIPine amLODIPine No 1{table QD amLODIPine Besylate 5 Besylate 5 t} Besylate 5 MG MG MG Pantoprazol Pantoprazol No 1{table QD Pantoprazo e Sodium 40 e Sodium 40 t} le Sodium MG MG 40 MG Citalopram Citalopram No 1{table QD Citalopram Hydrobromid Hydrobromid t} Hydrobromi e 20 MG e 20 MG de 20 MG Meloxicam Meloxicam No 1{table QD Meloxicam 7.5 MG 7.5 MG t} 7.5 MG clonazePAM clonazePAM No 1{table QD clonazePAM 0.5 MG 0.5 MG t_at_be 0.5 MG dtime} busPIRone busPIRone No BID busPIRone HCl 7.5 MG HCl 7.5 MG HCl 7.5 MG Vitamin B6 Vitamin B6 No 1{table QD Vitamin B6 100 MG 100 MG t} 100 MG Simvastatin Simvastatin No 1{table QD Simvastati 40 MG 40 MG t_in_th n 40 MG e_eveni ng} Betapace 80 Betapace 80 No BID Betapace MG MG 80 MG Naproxen Naproxen No BID Naproxen 500 MG 500 MG 500 MG Vital Signs Vital Name Observation Time Observation Value Comments Source height 2021-11-25 08:30:00 59.00 [in_i] Common [facility] weight 2021-11-25 08:30:00 139 [lb_av] [facility] temperature 2021-11-25 08:30:00 98.7 [degF] [facility] bmi 2021-11-25 08:30:00 28.07 kg/m2 [facility] oximetry 2021-11-25 08:30:00 92 % [facility] respiratory rate 2021-11-25 08:30:00 16 /min Comm on [facility] blood pressure 2021-11-25 08:30:00 145 mm[Hg] Common [facility] - systolic [facility] blood pressure 2021-11-25 08:30:00 67 mm[Hg] Common [facility] - diastolic [facility] height 2021-10-07 08:30:00 59.00 [in_i] [facility] weight 2021-10-07 08:30:00 143 [lb_av] Common [facility] temperature 2021-10-07 08:30:00 98 [degF] [facility] bmi 2021-10-07 08:30:00 28.88 kg/m2 [facility] oximetry 2021-10-07 08:30:00 99 % [facility] respiratory rate 2021-10-07 08:30:00 16 /min Comm on [facility] blood pressure 2021-10-07 08:30:00 142 mm[Hg] Common [facility] - systolic [facility] blood pressure 2021-10-07 08:30:00 63 mm[Hg] Common [facility] - diastolic [facility] height 2021-08-19 09:30:00 59.00 [in_i] Common [facility] weight 2021-08-19 09:30:00 141.6 [lb_av] Common [facility] temperature 2021-08-19 09:30:00 97.6 [degF] Common [facility] bmi 2021-08-19 09:30:00 28.6 kg/m2 [facility] oximetry 2021-08-19 09:30:00 97 % [facility] respiratory rate 2021-08-19 09:30:00 16 /min Comm on [facility] blood pressure 2021-08-19 09:30:00 182 mm[Hg] Common [facility] - systolic [facility] blood pressure 2021-08-19 09:30:00 88 mm[Hg] Common [facility] - diastolic [facility] Height 2020-05-28 00:00:00 58 [in_i] [facility] BMI (Body Mass Index) 2020-05-28 00:00:00 30.5 kg/m2 [facility] Body Weight 2020-05-28 00:00:00 146 [lb_av] [facility] Height 2019-11-11 00:00:00 58 [in_i] [facility] BMI (Body Mass Index) 2019-11-11 00:00:00 30.1 kg/m2 [facility] Body Weight 2019-11-11 00:00:00 144 [lb_av] [facility] Procedures Procedure Date / Time Performed Performing Clinician [facility] e Procedure on Bladder 2019-09-20 00:00:00 [facility] Mastectomy (One Breast) 2001-06-12 00:00:00 [facility] Hysterectomy (Partial) [facility] Plan of Care Planned Activity Planned Date Details Comments Source Future Scheduled Test 2023-02-03 COVID-19 VACCINE (#1) [facility] 00:36:18 [code = COVID-19 VACCINE (#1)] Future Scheduled Test 2023-02-03 SHINGLES VACCINES (1 [facility] 00:36:18 of 2) [code = SHINGLES VACCINES (1 of 2)] Future Scheduled Test 2023-02-03 65+ PNEUMOCOCCAL [facility] 00:36:18 VACCINE (2 - PCV) [code = 65+ PNEUMOCOCCAL VACCINE (2 - PCV)] Future Scheduled Test 2023-02-03 INFLUENZA VACCINE [facility] 00:36:18 (#1) [code = INFLUENZA VACCINE (#1)] Future Scheduled Test 2021-05-14 COVID-19 VACCINE (1) [facility] 14:07:10 [code = COVID-19 VACCINE (1)] Future Scheduled Test 2021-05-14 65+ PNEUMOCOCCAL [facility] 14:07:10 VACCINE (1 of 2 - PPSV23) [code = 65+ PNEUMOCOCCAL VACCINE (1 of 2 - PPSV23)] Future Scheduled Test 2021-05-14 Hepatitis C screening [facility] 14:07:10 (procedure) [code = 404943913] Future Scheduled Test 2021-05-14 SHINGLES VACCINES [facility] 14:07:10 (#1) [code = SHINGLES VACCINES (#1)] Future Scheduled Test 2021-05-14 INFLUENZA VACCINE [facility] 14:07:10 [code = INFLUENZA VACCINE] Future Scheduled Test 2021-05-14 COVID-19 VACCINE (1) [facility] 14:07:10 [code = COVID-19 VACCINE (1)] Future Scheduled Test 2021-05-14 65+ PNEUMOCOCCAL [facility] 14:07:10 VACCINE (1 of 2 - PPSV23) [code = 65+ PNEUMOCOCCAL VACCINE (1 of 2 - PPSV23)] Future Scheduled Test 2021-05-14 Hepatitis C screening [facility] 14:07:10 (procedure) [code = 909176845] Future Scheduled Test 2021-05-14 SHINGLES VACCINES [facility] 14:07:10 (#1) [code = SHINGLES VACCINES (#1)] Future Scheduled Test 2021-05-14 INFLUENZA VACCINE [facility] 14:07:10 [code = INFLUENZA VACCINE] Instructions [facility] Family Practice Encounters Start End Encounter Admission Attending Care Care Encounter Source Date/Time Date/Time Type Type Clinicians Facility Department ID 2021-08-[address] [facility] [id number] 17:38:25 [id number] [facility] 2021-08-19 Outpatient Young, STLMLC STLMLC [id number] Common 09:32:00 Manjit [facility] 2021-08-04 Outpatient Young, STLMLC STLMLC [id number] Common 16:03:01 Manjit [facility] 2021-05-26 Outpatient Maddy, STLMLC STLMLC [id number] Common 12:12:12 Minerva [id number] [facility] 2021-05-26 Outpatient Maddy, STLMLC STLMLC [id number] Common 12:10:21 Minerva [id number] [facility] 2021-05-26 Outpatient Maddy, STLMLC STLMLC [id number] Common 12:07:44 Minerva [id number] [facility] 2021-05-26 Outpatient Maddy, STLMLC STLMLC [id number] Common 12:06:46 Minerva [id number] [facility] 2021-05-26 Outpatient Maddy, STLMLC STLMLC [id number] Common 12:05:52 Minerva [id number] [facility] 2021-05-26 Outpatient Maddy, STLMLC STLMLC [id number] Common 12:03:41 Minerva [id number] [facility] 2021-05-26 Outpatient Love, Kin STLMLC STLMLC [id number] Common 11:59:26 [id number] [facility] 2021-05-26 Outpatient Millender, STLMLC STLMLC [id number] Common 11:53:48 Mandy [id number] [facility] 2021-05-26 Outpatient Millender, STLMLC STLMLC [id number] Common 11:52:53 Mandy [id number] [facility] 2021-05-26 Outpatient Millender, STLMLC STLMLC [id number] Common 11:30:29 Mandy [id number] [facility] 2021-05-26 Outpatient Millender, STLMLC STLMLC [id number] Common 11:13:09 Mandy [id number] [facility] 2022-04-30 2022-04-30 Transcribe [place], 1.2.840.1 [id number] Methodi 00:00:00 00:00:00 Orders Dany [id number] [place] 3.430.2.7 Hospit a .3.485958 l .8 2022-03-09 2022-03-09 [facility]ly [facility], 1.2.840.1 [id number] Methodi 00:00:00 00:00:00 Orders Adny 84577.1.[address] [place] 3.430.2.7 Hospit a .3.850714 l .8 2022-02-17 2022-02-17 Transcribe [place], 1.2.840.1 [id number] Methodi 00:00:00 00:00:00 Orders Dany 08911.1.[address] [place] 3.430.2.7 Hospit a .3.033309 l .8 2021-11-25 2021-11-25 (PROC) STLMLC STLMLC [id number] Co mmon 00:00:00 00:00:00 Procedure Spir it - [facility] 2021-11-15 2021-11-15 (TEL) STLMLC STLMLC [id number] Co mmon 00:00:00 00:00:00 [facility] 2021-11-04 2021-11-04 (TEL) STLMLC STLMLC [id number] Co mmon 00:00:00 00:00:00 [facility] 2021-10-11 2021-10-11 (TEL) STLMLC STLMLC [id number] Co mmon 00:00:00 00:00:00 [facility] 2021-10-07 2021-10-07 OFFICE STLMLC STLMLC [id number] Co mmon 00:00:00 00:00:00 VISIT EST Spir it PT LEVEL 3 - [facility] 2021-09-03 2021-09-03 Outpatient [facility] [id number] Withams 00:00:00 00:00:00 DANY 713 Method i 2021-09-03 2021-09-03 Outpatient JULIETA [facility] [id number] Withams 00:00:00 00:00:00 DANY 718 Method i 2021-09-03 2021-09-03 Outpatient JULIETA [facility] [id number] Withams 00:00:00 00:00:00 DANY 716 Method i 2021-08-19 2021-08-19 OFFICE STLMLC STLMLC [id number] Co mm 00:00:00 00:00:00 VISIT NEW [facility] it PT LEVEL 3 - [facility] 2020-06-12 2020-06-12 Telephone Jesus, 1.2.840.1 [id number] Methodi 00:00:00 00:00:[address] [place] 3.430.2.7 Hospit a .3.922038 l .8 2020-06-03 2020-06-03 Outpatient Ajibade_O_A VFP [facility] [id number] [facility] 03:08:00 03:08:00 [id number] Family Practic e 2020-05-28 2020-05-28 [facility] Ajibade_O_A VFP [place] - [id number] [facility] 00:00:00 00:00:00 Kennedi Alicea [facility] [address] Famil y [employer]: [id number] Medical - Pract josue Pringle, [email or web address]_ [email or web address] Suite [facility], [facility], [place] [address] , Ph. 2020-04-13 2020-04-13 Outpatient STLMLC STLMLC [id number] Common 00:00:00 00:00:00 [facility] 2020-03-25 2020-03-25 Outpatient STLMLC STLMLC [id number] Common 00:00:00 00:00:00 [facility] 2020-03-23 2020-03-23 Outpatient STLMLC STLMLC [id number] Common 00:00:00 00:00:00 [facility] 2020-02-07 2020-02-07 Outpatient STLMLC STLMLC [id number] Common 00:00:00 00:00:00 [facility] 2020-02-04 2020-02-04 [facility] [id number] Withams 00:00:00 00:00:[address] [facility] 2019-12-05 2019-12-05 Outpatient Ige-Odunuga VFP VFP [id number] [facility] 12:43:00 12:43:00 _J_ [id number] Family Practic e 2019-12-05 2019-12-05 Outpatient COH COH PDPFEIM SQG COH 00:00:00 00:00:00 [id number] 2019-11-15 2019-11-15 Outpatient Ige[place] VFP VFP [id number] [facility] 11:57:00 11:57:00 _J_AH [id number] Family Practic e 2019-11-11 2019-11-11 [place] Ige-Od[place] VFP [place] - [id number] [facility] 00:00:00 00:00:00 Piter, [employer]: [facility] [address], Suite [email or web address], [facility], [facility] [address] , Ph. 2019-11-07 2019-11-07 [facility] [id number] Common 15:20:00 15:20:00 [facility] 2019-10-23 2019-10-23 Outpatient [facility] [id number] Common 09:40:00 09:40:00 [facility] 2019-10-23 2019-10-23 Outpatient Ige-[place] VFP VFP [id number] [facility] 08:53:00 08:53:00 _J_AH [id number] Family Practic e 2019-10-22 2019-10-22 [facility] [id number] Withams 00:00:00 00:00:00 ANN [address] 2019-10-01 2019-10-01 Outpatient Ige-[place] VFP VFP [id number] [facility] 06:56:00 06:56:00 _AmadeoAH [id number] Family Practic e 2019-09-25 2019-09-25 Zofia O Ige[place] VFP [place] - [id number] [facility] 00:00:00 00:00:00 Ige-Odunug _[place]_[facility] [address] Mo choi [employer]: Medical - Practi c 9235 Randi [email or web address], [address] [place] [address], [place] [address] , Ph. 2019-09-20 2019-09-21 [id number] Withams 00:00:00 00:00:00 ANN 856 Method i 2019-09-16 2019-09-16 [facility] [id number] Withams 00:00:00 00:00:00 ANN 433 Method i 2019-07-12 2019-07-12 Out[facility] [id number] Common 11:15:00 11:15:00 [facility] it [facility] 2019-07-04 2019-07-04 Outpatient JESUS, [facility] [id number] Withams 00:00:00 00:00:00 ANN 123 Method i 2019-06-19 2019-06-19 Outpatient Ige-Od[place] VFP VFP [id number] [facility] 07:23:00 07:23:00 _[place]_AH [id number] Family Practic e 2019-04-12 2019-04-12 Outpatient [facility] [id number] Common 10:00:00 10:00:00 [facility] it Road [facility] 2019-04-05 2019-04-05 Outpatient [facility] [id number] Common 11:20:00 11:20:00 [facility] it Road [facility] 2019-03-19 2019-03-19 Outpatient [facility] [id number] Common 14:40:00 14:40:[address] [facility] 2019-03-19 2019-03-19 Outpatient [facility] [id number] Common 13:40:00 13:40:[address] [facility] 2019-02-22 2019-02-22 Outpatient [facility] [id number] Common 16:29:00 16:29:[address] [facility] 2019-02-07 2019-02-07 Outpatient [facility] [id number] Common 09:27:00 09:27:[address] [facility] 2019-01-17 2019-01-17 Outpatient [facility] [id number] Common 22:03:00 22:03:[address] [facility] 2019-01-15 2019-01-15 Outpatient [facility] [id number] Common 10:23:00 10:23:[address] [facility] 2019-01-11 2019-01-11 Outpatient [facility] [id number] Common 09:20:00 09:20:[address] [facility] 2019-01-10 2019-01-10 Outpatient [facility] [id number] Common 10:20:00 10:20:[address] [facility] 2018-12-05 2018-12-05 Outpatient [facility] [id number] Common 08:00:00 08:00:[address] [facility] 2018-10-12 2018-10-12 Outpatient [facility] [id number] Common 00:37:00 00:37:[address] [facility] 2018-10-10 2018-10-10 Outpatient [facility] [id number] Common 16:20:00 16:20:[address] [facility] 2018-08-28 2018-08-28 Outpatient [facility] [id number] Common 09:19:00 09:19:[address] [facility] 2018-08-23 2018-08-23 Outpatient [facility] [id number] Common 14:20:00 14:20:[address] [facility] 2018-07-30 2018-07-30 Outpatient [facility] [id number] Common 15:30:00 15:30:[address] [facility] 2018-07-30 2018-07-30 Outpatient [facility] [id number] Common 11:20:00 11:20:[address] [facility] 2018-07-19 2018-07-19 Outpatient [facility] [id number] Common 07:56:00 07:56:00 [address] [place] [address] [facility] 2018-07-16 2018-07-16 Outpatient [facility] [id number] Common 15:20:00 15:20:00 [address] [place] [address] [facility] 2018-04-30 2018-04-30 Outpatient [facility] [id number] Common 11:55:00 11:55:00 [address] [place] [address] [facility] 2018-03-27 2018-03-27 Outpatient [facility] [id number] Common 14:00:00 14:00:00 [place] [address] [facility] 2017-12-25 2017-12-25 Outpatient [facility] [id number] Common 10:00:00 10:00:00 [place] [address] [facility] 2017-10-25 2017-10-25 Outpatient [facility] [id number] Common 10:00:00 10:00:00 [place] [address] [facility] 2017-08-02 2017-08-02 Outpatient [facility] [id number] Common 16:11:00 16:11:00 [address] [place] [address] [facility] 2017-07-25 2017-07-25 Outpatient Deandre Sage [id number] Common 09:00:00 09:00:00 [address] [place] [address] [facility] Results Test Description Test Time Test Comments Results Result Sour e Comments US BREAST BILATERAL 9 11:43:08 [facility] : 1940 Sex: F CLINICAL INDICATION: M85.80 Other specified disorders of bone density and structure, unspecified siteHISTORY: 82-year-old female who is status post left mastectomy in 2001. The patient complains of a palpable area of concern in the left axilla x 2 months.TECHNIQUE: Realtime and Doppler color breast imaging are performed on the [employer]. Radial and antiradial imaging is accomplished in all quadrants. Imaging of the axillary regions performed. This represents a bilateral ultrasound exam.COMPARISON STUDY: 11/26/2020. FINDINGS:Sonography of the right breast shows no hypoechoic mass, solid nodule or cyst. A hypoechoic lesion at the 4-5 o'clock position, 4 cm from the nipple in the left breast is mildly decreased in size measuring 0.4 x 0.3 x 0.3 cm, previously 0.5 x 0.6 x 0.6 cm. Survey of the left breast is otherwise unremarkable. The patient demonstrates the palpable area of concern in the left axilla. This correlates to a benign, most likely reactive lymph node measuring 0.7 x 0.3 x 0.6 cm. Both axillae are otherwise unremarkable.IMPRESSION: Benign findings. Please see comments.RECOMMENDATION: Follow up yearly diagnostic mammography.Category: BIRADS 2 - Benign. For internal use only. N:12 DX Mammography Digital Unilateral 9 with Tomosynthesis 10:50:49 [facility] : 1940 Sex: F CLINICAL INDICATION: Z85.3HISTORY: 82-year-old female who is status post left mastectomy in 2001. The patient complains of a palpable area of concern in the left axilla x 2 months.MODALITY: Selerityation Full Field Digital MammographyTECHNIQUE: Digital acquisition of the right breast is performed on the ACR accredited Full Field Digital Mammography Unit. 3D tomosynthesis images were acquired in the LM, CC and MLO projections in the right breastFINDINGS:COMPARISO N STUDY: Back to 12/07/2015.There are scattered fibroglandular tissues in both breasts. The architecture of the breast parenchyma is unchanged. No dominant mass, skin thickening, architectural distortion or suspicious microcalcifications are noted.Ultrasound findings: Sonography of the right breast shows no hypoechoic mass, solid nodule or cyst. A hypoechoic lesion at the 4-5 o'clock position, 4 cm from the nipple in the left breast is mildly decreased in size measuring 0.4 x 0.3 x 0.3 cm, previously 0.5 x 0.6 x 0.6 cm. Survey of the left breast is otherwise unremarkable. The patient demonstrates the palpable area of concern in the left axilla. This correlates to a benign, most likely reactive lymph node measuring 0.7 x 0.3 x 0.6 cm. Both axillae are otherwise unremarkable.IMPRESSION: Benign findings. Please see comments.RECOMMENDATION: Follow up yearly diagnostic mammography.Category: BIRADS 2 - Benign. For internal use only. N:12 US BREAST COMPLETE 2020-10-30 UNL LT/RT 9 10:25:51 [facility]LEX[facility] HERCUL[facility] : 1940 Sex: F CLINICAL INDICATION: History of left mastectomy with left breast palpable areasTECHNIQUE: Realtime and Doppler color breast imaging are performed on the Avelina Affiniti 70G. Elasticity is performed where indicated. Radial and antiradial imaging is accomplished in all four quadrants and retroareolar region. Imaging of the axillary regions performed. This represents a unilateral left chest wall and axillary exam.COMPARISON STUDY: Screening mammogram right breast June 22, 2020, CT chest May 12, 2020, PET CT December 19, 2019 FINDINGS:Left whole breast/chest wall ultrasound is performed to include the axilla. Mastectomy scar is present. Left four to five o'clock 5 x 6 by 6 mm oval parallel isoechoic nonvascular mass is present in the palpable region. This is benign-appearing. No irregular masses or adenopathy.IMPRESSION:6 mm oval mass at the mastectomy site resembles benign appearing postsurgical change. Breast MRI is recommended for further evaluation of the patient's symptoms and chest wallRecommendation: Breast MRI with IV contrastCategory: BIRADS 0 - Incomplete. Needs additional imaging for evaluation. For internal use only. A;0 DX Mammography 2020-06-02 Digital Unilateral 2 with Tomosynthesis 11:13:46 [facility] HERCUL[facility] : 1940 Sex: F CLINICAL INDICATION: History of left breast cancer status post mastectomy. MODALITY: Siemens [employer] Full Field Digital MammographyTECHNIQUE: Digital acquisition of the breasts is performed on the ACR accredited Full Field Digital Mammography Unit. Computer Assisted Detection (CAD) is then accomplished using [employer]. Imaging of the right breast is performed.3D tomosynthesis images were acquired in the CC and MLO projections in the right breast. FINDINGS:COMPARISON STUDY: Prior studies dating back to 2016There are scattered fibroglandular tissues in both breasts. There are no suspicious masses, calcifications or architectural distortion in the right breast. There has been no significant interval change.IMPRESSION:No mammographic evidence of malignancy.RECOMMENDATIO N: Routine annual screening mammography in 1 year is recommended.The findings were discussed with the patient.Category: BIRADS 1 - Negative. For internal use only N:12 MRI BRAIN WO/W 2019-12-31 CLINICAL INDICATION: 0 Z15.01 Genetic 11:35:07 susceptibility to malignant neoplasm of breastMODALITY: Siemens [...] bilateral mastoid air cells and paranasal sinuses noted.
[2023-02-03 01:05] LABS: Absolute Lymphocytes (CBC) 1.6 K/uL (0.7-4.9); Hematocrit 37.6 % (36.0-45.0); Lymphocytes % 17.7 % (15.3-44.8); MCV 84.5 fL (80-100); MPV 6.5 fL (7.6-11.3); Platelets 252 thou/uL (152-406); RBC Red Blood Cell Count 4.45 M/uL (3.86-4.86)
[2023-02-03 01:10] LABS: Protime INR 1.15
[2023-02-03] MEDS ORDERED: ACETAMINOPHEN 500 MG TAB ONE ×2 (01:26→01:31)
[2023-02-03 01:29] LABS: ALT/SGPT 19 U/L (13-56); AST/SGOT 11 U/L (15-37); Albumin 3.4 g/dL (3.4-5.0); Alkaline Phosphatase 167 U/L (45-117); BUN Blood Urea Nitrogen 11 mg/dL (7-18); Bicarbonate 29 mEq/L (21-32); Bilirubin Direct < 0.1 mg/dL (0-0.2); Bilirubin Indirect, Calculated ND mg/dL (0.2-0.8); Bilirubin Total 0.3 mg/dL (0.2-1.0); Glomerular Filtration Rate 84 ml/min (=/>90); Glucose Level 147 mg/dL (74-106); NT PRO-BNP 367 pg/mL (<450); Potassium 3.5 mEq/L (3.5-5.1); Protein, Total 7.6 g/dL (6.4-8.2); Sodium Level 137 mEq/L (136-145); Troponin High Sensitivity 7.3 pg/mL (<58.9)
--- NOTE | 2023-02-03 03:24 | EDPHYS ---
Physician Documentation [facility] Name: Alexsandra Hercules Age: 82 yrs Sex: Female : 1940 Arrival Date: 02/03/2023 Time: 00:33 Bed 20 Private MD: ED Physician Néstor Haynes HPI: 02/03 01:13 This 82 yrs old Female presents to ER via Wheelchair with complaints of Chest sb4 Pain, Back Pain. 01:13 Patient presents with left-sided chest pain that began just prior to arrival. She sb4 states she feels it "in her heart "and it radiates to her left shoulder and back. She states that she has been experiencing similar left shoulder and back pain ever since having pneumonia 3 months ago but the chest pain is new. She denies any shortness of breath, nausea, vomiting, diarrhea, diaphoresis. She denies any changes in medication. She denies any prior episodes. Historical: - Allergies: 00:48 Codeine; cm10 00:48 Morphine; cm10 00:48 Stadol; cm10 00:48 Tramadol HCl; cm10 - PMHx: 00:48 BREAST CA; Diabetes - NIDDM; Glaucoma; Hypertension; Atrial fibrillation; cm10 - Immunization history:: Adult Immunizations unknown. - Social history:: Smoking status: Patient/guardian denies using tobacco. ROS: 01:13 Constitutional: Negative for fever, chills, and weight loss, sb4 01:13 Cardiovascular: Positive for chest pain, 01:13 All other systems are negative, Exam: 01:13 Constitutional: This is a well developed, well nourished patient who is awake, alert, sb4 and in no acute distress. Head/Face: Normocephalic, atraumatic. Eyes: Extra-ocular motions intact. Periorbital areas with no swelling, redness, or edema. ENT: Mucous membranes moist. Cardiovascular: Regular rate and rhythm with a normal S1 and S2. Respiratory: Lungs have equal breath sounds bilaterally, clear to auscultation and percussion. No rales, rhonchi or wheezes noted. No increased work of breathing, no retractions or nasal flaring. Abdomen/GI: Soft, non-tender, no distension. Skin: Warm, dry with normal turgor. Normal color with no rashes, no lesions, and no evidence of cellulitis. MS/ Extremity: Pulses equal, no cyanosis. Neurovascular intact. Full, normal range of motion. Neuro: Awake and alert, GCS 15, oriented to person, place, time, and situation. Motor strength 5/5 in all extremities. Sensory grossly intact. Vital Signs: 00:46 BP 149 / 107; Pulse 74; Resp 16; Temp 100.6(O); Pulse Ox 97% on R/A; Weight 65.77 kg; cm10 Height 4 ft. 9 in. ; 01:11 BP 163 / 78; Pulse 65; Resp 18; Pulse Ox 99% on R/A; ha1 02:00 BP 142 / 62; Pulse 65; Resp 17; Pulse Ox 98% ; jj7 02:09 Temp 99; sb4 02:54 BP 118 / 60; Pulse 63; Resp 16; Pulse Ox 96% ; jj7 03:40 BP 118 / 70; Pulse 62; Resp 14; Temp 99.2; Pulse Ox 98% ; Pain 0/10; jj7 00:46 Body Mass Index 31.38 (65.77 kg, 144.78 cm) cm10 03:40 Pain Scale: Adult jj7 MDM: 00:40 Patient medically screened. sb4 01:13 Differential diagnosis: [place], angina, chest wall pain, PE, costochondritis, pleurisy, sb4 COVID, flu, pneumonia. 01:15 Scoring Tools HEART Score: History: ECG: Age: Risk Factors: > or = 3 Risk factors for sb4 atherosclerotic disease (2), Troponin: Total Score = 5. 02:19 Independent interpretation of the following test(s) in the Emergency Department X-Ray: sb4 My interpretation is my interpretation of the chest xray images are no acute consolidation. 03:22 Data reviewed: vital signs, nurses notes, lab test result(s), EKG, radiologic studies, sb4 and as a result, I will discharge patient. Consideration of Admission/Observation Escalation of care including admission/observation considered. Historians other than the Patient: Daughter/Son: daughter. Care significantly affected by the following chronic conditions: Diabetes, Hypertension. 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 02/03 00:48 Order name: Basic Metabolic Panel; Complete Time: 01:36 sb4 02/03 00:48 Order name: CBC with Diff; Complete Time: :08 sb4 02/03 00:48 Order name: LFT's; Complete Time: :36 sb4 02/03 00:48 Order name: Magnesium; Complete Time: :36 sb4 02/03 00:48 Order name: NT PRO-BNP; Complete Time: :36 sb4 02/03 00:48 Order name: PT-INR; Complete Time: 01:13 sb4 02/03 00:48 Order name: Troponin HS; Complete Time: :36 sb4 02/03 00:48 Order name: SARS-COV-2 RT PCR; Complete Time: :36 sb4 02/03 00:48 Order name: Flu; Complete Time: 01:26 sb4 02/03 02:09 Order name: Troponin High Sensitivity: draw at 3 please; Complete Time: 02:50 sb4 02/03 00:48 Order name: XRAY Chest (1 view) sb4 02/03 01:49 Order name: Chest Wo Con CT sb4 02/03 00:48 Order name: EKG; Complete Time: 00:48 sb4 02/03 00:48 Order name: Cardiac monitoring; Complete Time: 0058 sb4 02/03 00:48 Order name: EKG - Nurse/Tech; Complete Time: 00:58 sb4 02/03 00:48 Order name: IV Saline Lock; Complete Time: 00:58 sb4 02/03 00:48 Order name: Labs collected and sent; Complete Time: 00:58 sb4 02/03 00:48 Order name: O2 Per Protocol; Complete Time: 00:58 sb4 02/03 00:48 Order name: O2 Sat Monitoring; Complete Time: 00:58 sb4 EC:53 Rate is 70 beats/min. Rhythm is regular, Normal Sinus Rhythm with Right bundle branch sb4 block. Left axis deviation noted. MI interval is normal at 200 msec. QRS interval is normal at 158 msec. QT interval is normal at [address] changes noted. Clinical impression: Abnormal EKG without significant change. Interpreted by me. Reviewed by me. Administered Medications: 00:57 CANCELLED (Physician Discretion): aspirinchewable tablet 324 mg PO once; 81 mg tablets sb4 x 4 01:21 Drug: Acetaminophen PO 1000 mg PO once Route: PO; ha1 03:56 Follow up: Response: Temperature is decreased jj7 Disposition: 04:32 Co-signature as Attending Physician, Néstor Haynes MD I agree with the assessment sp4 and plan of care. I reviewed the patient's care provided by the Advanced Practice Provider and agree with the diagnosis and treatment plan. Disposition Summary: 02/03/23 03:23 Discharge Ordered Notes: Location: Home sb4 Problem: new sb4 Symptoms: have improved sb4 Condition: Stable sb4 Diagnosis - Chest pain, unspecified sb4 - Pneumonia, unspecified organism sb4 Followup: sb4 - With: Everette Trimble MD - When: 2 - 3 days - Reason: Further diagnostic work-up, Recheck today's complaints, Re-evaluation by your physician Discharge Instructions: - Discharge Summary Sheet sb4 - Community-Acquired Pneumonia, Adult sb4 - Nonspecific Chest Pain, Adult, [id number] sb4 Forms: - Medication Reconciliation Form sb4 - Thank You Letter sb4 - Antibiotic Education sb4 - Prescription Opioid Use sb4 - Patient Portal Instructions sb4 - Leadership Thank You Letter sb4 Prescriptions: - azithromycin 250 mg Oral tablet - take 1 dose pack ORAL route as directed on dose pack For 250 mg dose pack: take sb4 500 mg today (day 1), then 250 mg for 4 days (days 2-5); 1 Pack; Refills: 0, Product Selection Permitted - Augmentin 875-125 mg Oral Tablet - take 1 tablet ORAL route every 12 hours for 10 days; 20 tablet; Refills: 0, sb4 Product Selection Permitted - Prednisone 20 mg Oral Tablet - take 1 tablet ORAL route once daily for 5 days; 5 tablet; Refills: 0, Product sb4 Selection Permitted Signatures: [facility] Salena Fabian RN RN ha1 Essie Kellogg PA-C PAShaji sb4 Néstor Haynes MD MD sp4 Yareli Reynolds RN RN cm10 Roma Perez RN jj7 Corrections: (The following items were deleted from the chart) 00:57 00:48 Aspirin PO Chewable Tablet 324 mg PO once; 81 mg tablets x 4 ordered. sb4 sb4
--- NOTE | 2023-02-03 03:24 | ER ---
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 Pt states that cm10 the pain now radiates to her left shoulder and back. Coronavirus screen: Vaccine status: Patient reports receiving the 2nd dose of the covid vaccine. Client denies travel out of the [place] in the last 14 days. Ebola Screen: Patient denies travel to an Ebola-affected area in the 21 days before illness onset. No symptoms or risks identified at this time. Initial Sepsis Screen: Does the patient meet any 2 criteria? No. Patient's initial sepsis screen is negative. Does the patient have a suspected source of infection? No. Patient's initial sepsis screen is negative. Risk Assessment: Do you want to hurt yourself or someone else? Patient reports no desire to harm self or others. Onset of symptoms was February 03, 2023. 00:46 Method Of Arrival: Wheelchair cm10 00:46 Acuity: TANO 2 cm10 Triage Assessment: 01:20 General: Appears in no apparent distress. comfortable, Behavior is calm, cooperative, jj7 appropriate for age. Pain: Complains of pain in chest. Cardiovascular: Reports chest pain. Historical: - Allergies: 00:48 Codeine; cm10 00:48 Morphine; cm10 00:48 Stadol; cm10 00:48 Tramadol HCl; cm10 - PMHx: 00:48 BREAST CA; Diabetes - NIDDM; Glaucoma; Hypertension; Atrial fibrillation; cm10 - Immunization history:: Adult Immunizations unknown. - Social history:: Smoking status: Patient/guardian denies using tobacco. Screenin:01 Abuse screen: Denies threats or abuse. Denies injuries from another. Nutritional ha1 screening: No deficits noted. Tuberculosis screening: No symptoms or risk factors identified. 01:20 [facility] ED Fall Risk Assessment (Adult) History of falling in the last 3 months, jj7 including since admission No falls in past 3 months (0 pts) Confusion or Disorientation No (0 pts) Intoxicated or Sedated No (0 pts) Impaired Gait No (0 pts) Mobility Assist Device Used No (0 pt) Altered Elimination No (0 pt) Score/Fall Risk Level 0 - 2 = Low Risk Oriented to surroundings, Maintained a safe environment, Educated pt \T\ family on fall prevention, incl call for assistance when getting out of bed. Assessment: 01:11 Reassessment: Patient and/or family updated on plan of care and expected duration. Pain ha1 level reassessed. Patient is alert, oriented x 3, equal unlabored respirations, skin warm/dry/pink. Vital Signs: 00:46 BP 149 / 107; Pulse 74; Resp 16; Temp 100.6(O); Pulse Ox 97% on R/A; Weight 65.77 kg; cm10 Height 4 ft. 9 in. ; 01:11 BP 163 / 78; Pulse 65; Resp 18; Pulse Ox 99% on R/A; ha1 02:00 BP 142 / 62; Pulse 65; Resp 17; Pulse Ox 98% ; jj7 02:09 Temp 99; sb4 02:54 BP 118 / 60; Pulse 63; Resp 16; Pulse Ox 96% ; jj7 03:40 BP 118 / 70; Pulse 62; Resp 14; Temp 99.2; Pulse Ox 98% ; Pain 0/10; jj7 00:46 Body Mass Index 31.38 (65.77 kg, 144.78 cm) cm10 03:40 Pain Scale: Adult jj7 ED Course: 00:37 Patient arrived in ED. ag3 00:40 Essie Kellogg PA-C is PHCP. sb4 00:40 Néstor Haynes MD is Attending Physician. sb4 00:40 Inserted saline lock: 22 gauge in right antecubital area, using aseptic technique. ha1 Blood collected. 00:47 Triage completed. cm10 00:48 Arm band placed on Patient placed in an exam room, on a stretcher, on monitoring and evaluation advisor, cm10 on pulse oximetry. 00:59 LFT's Sent. ha1 00:59 Magnesium Sent. ha1 00:59 NT PRO-BNP Sent. ha1 00:59 PT-INR Sent. ha1 00:59 Troponin HS Sent. ha1 00:59 Flu Sent. ha1 00:59 SARS-COV-2 RT PCR Sent. ha1 01:11 Patient has correct armband on for positive identification. Placed in gown. Bed in low jj7 position. Call light in reach. Side rails up X2. Adult w/ patient. Client placed on continuous cardiac and pulse oximetry monitoring. NIBP monitoring applied. monitoring and evaluation advisor on. Pulse ox on. NIBP on. 01:32 XRAY Chest (1 view) In Process Unspecified. EDMS 01:41 Roma Perez, RN is Primary Nurse. jj7 02:[address] In Process Unspecified. EDMS 03:23 Everette Trimble MD is Referral Physician. sb4 03:40 Provided Education on: MEDS. jj7 03:40 No provider procedures requiring assistance completed. IV discontinued, intact, jj7 bleeding controlled, No redness/swelling at site. Pressure dressing applied. Patient maintains SpO2 saturation greater than 95% on room air. Administered Medications: 00:57 CANCELLED (Physician Discretion): aspirinchewable tablet 324 mg PO once; 81 mg tablets sb4 x 4 01:21 Drug: Acetaminophen PO 1000 mg PO once Route: PO; ha1 03:56 Follow up: Response: Temperature is decreased jj7 Medication: 03:40 VIS not applicable for this client. jj7 Outcome: 03:23 Discharge ordered by . sb4 03:40 Discharged to home ambulatory, via wheelchair, jj7 03:40 Condition: good 03:40 Discharge instructions given to patient, family, Instructed on discharge instructions, follow up and referral plans. medication usage, Demonstrated understanding of instructions, follow-up care, medications, Prescriptions given X 3, 03:56 Patient left the ED. jj7 Signatures: Dispatcher [employer] [place], Avis 3 Salena Mota RN RN ha1 Roma Perez, MICKY RN [email or web address] Essie Kellogg PAShaji PAShaji [email or web address] Yareli Reynolds RN RN cm10
[2023-02-03 07:07] VITALS: BP 118/70; TEMP 99.2; O2SAT 98
--- NOTE | 2023-02-03 12:21 | EKG ---
Test Date: 2023-02-03 Test Time: 00:48:21 Photoengraving Sketch Maker: RUEL MEASUREMENT RESULTS: Intervals: Rate: 70 FL: 200 QRSD: 158 QT: 444 QTc: 479 Lavinia: P: 35 FL: 200 QRS: -44 T: -45 INTERPRETIVE STATEMENTS: Normal sinus rhythm with sinus arrhythmia Left axis deviation Right bundle branch block Anteroseptal infarct, age undetermined T wave abnormality, consider inferolateral ischemia Abnormal ECG Compared to ECG 03/22/2015 05:38:54 Myocardial infarct finding now present Sinus bradycardia no longer present T-wave abnormality still present Possible ischemia still present Electronically Signed On 02-03-23 12:19:47 CDT by Everette Trimble
--- NOTE | 2023-02-03 15:56 | RAD REPORT ---
EXAM DESCRIPTION: CT - Thorax Wo Adilson - 02/03/2023 6:04 am CLINICAL HISTORY: CHEST PAIN TECHNIQUE: Contiguous axial images obtained through the chest without IV contrast. Coronal and sagit jasmyn reformatted images provided. This exam was performed according to our departmental dose-optimization program, which includes autom ated exposure control, adjustment of the mA and/or kV according to patient size and/or use of iterati ve reconstruction technique. COMPARISON: No prior exams provided for comparison. FINDINGS: Lungs: Confluent airspace disease in the superior segment of the left lower lobe medially which may represent atelectasis and pneumonia. Chronic interstitial changes. Pulmonary nodule in the left upper lobe, pleural-based, measuring approximately 1 cm in diameter Per Fleischner Society Guidelines, consider a non-contrast Chest CT at 3 months, a PET/CT, or tissue samp ling. These guidelines do not apply to immunocompromised patients and patients with cancer. Follow up in pa tients with significant comorbidities as clinically warranted. For lung cancer screening, adhere to L mariela-RADS guidelines. Reference: Radiology. 2017; 284(1):228-43. Atelectatic changes in the lung bases. Pleura: Small left pleural effusion. No pneumothorax. Heart and pericardium: Cardiomegaly. No pericardial effusion. Mediastinum and glenis: No pathologically enlarged lymph nodes. Lower neck and chest wall: Status post left mastectomy. Vessels: Unremarkable Upper abdomen: Unremarkable Bones: Unremarkable IMPRESSION: 1. Confluent airspace disease in the superior segment of the left lower lobe medially which may represent atelectasis and pneumonia. Small left pleural effusion. 2. Pulmonary nodule in the left upper lobe, pleural-based, measuring approximately 1 cm in diameter . See recommendations above. 3. Small left pleural effusion. 4. Chronic interstitial changes. 5. Cardiomegaly. Electronically signed by: Edgardo Regan MD 02/03/2023 3:17 AM CDT Due to temporary technical issues with the PACS/Fluency reporting system, reports are being signed by the in house radiologists without review as a courtesy to insure prompt reporting. The interpreting radiologist is fully responsible for the content of the report
--- NOTE | 2023-02-03 16:06 | RAD REPORT ---
EXAM DESCRIPTION: RAD - Chest Single View - 02/03/2023 1:30 am CLINICAL HISTORY: The patient is 82 years old and is Female; CHEST PAIN TECHNIQUE: Frontal view of the chest. COMPARISON: No relevant prior studies available. FINDINGS: Lungs: Prominent interstitial markings which may represent chronic changes and/or mild i nterstitial edema. Pleural space: Unremarkable. No pneumothorax. Heart: Unremarkable. Mediastinum: Unremarkable. Bones/joints: No acute findings. Soft tissues: Clips overlying the left axillary region. IMPRESSION: Prominent interstitial markings which may represent chronic changes and/or mild intersti tial edema. Electronically signed by: Gerber Chaney MD 02/03/2023 1:45 AM CDT Due to temporary technical issues with the PACS/Fluency reporting system, reports are being signed by the in house radiologists without review as a courtesy to insure prompt reporting. The interpreting radiologist is fully responsible for the content of the report
== END 2023-02-03 03:56 | disposition home or self-care (01) ==
LOC: ER 00:33
DX: J18.9 Pneumonia, unspecified organism (principal); E11.9 Type 2 diabetes mellitus without complications; I10 Essential (primary) hypertension; Z20.822 Contact with and (suspected) exposure to COVID-19; Z85.3 Personal history of malignant neoplasm of breast; Z88.5 Allergy status to narcotic agent
CPT/HCPCS: 36415; 71045; 71250; 80048; 80076; 83735; 83880; 84484; 85025; 85610; 87635; 87804; 93005; 99285

== ENCOUNTER 2023-10-19 18:11 | Emergency (ER) | payer OTHER ==
[2023-10-19 19:06] LABS: Absolute Basophils 0.1 K/uL (0-0.5); Absolute Eosinophils 0.1 K/uL (0-0.5); Absolute Lymphocytes (CBC) 1.7 K/uL (0.7-4.9); Absolute Monocytes 0.3 K/uL (0.1-1.3); Absolute Neutrophil 3.4 K/uL (1.8-8.0); Eosinophils % 1.6 % (0-4.4); Hematocrit 41.8 % (36.0-45.0); Hemoglobin 14.2 g/dL (12.0-15.0); Lymphocytes % 31.2 % (15.3-44.8); MCH 30.3 pg (27.0-35.0); MCHC 34.1 g/dL (32.0-36.0); Monocytes % 5.5 % (3.3-12.3); Neutrophils % 60.7 % (41.7-73.7); Nucleated Red Blood Cells % 0.1 % (0-0); Platelets 227 thou/uL (152-406); Red Cell Distribution Width 12.8 % (12.1-15.2)
[2023-10-19 19:26] LABS: ALT/SGPT 23 U/L (13-56); AST/SGOT 17 U/L (15-37); Albumin 3.8 g/dL (3.4-5.0); Albumin/Globulin Ratio 1.1 (1.1-1.8); Alkaline Phosphatase 157 U/L (45-117); BUN Blood Urea Nitrogen 16 mg/dL (7-18); Bicarbonate 27 mEq/L (21-32); Bilirubin Total 0.5 mg/dL (0.2-1.0); Globulin 3.6 g/dL (2.3-3.5); Glomerular Filtration Rate 53 ml/min (=/>90); Glucose Level 195 mg/dL (74-106); Magnesium 2.1 mg/dL (1.6-2.4); NT PRO-BNP 221 pg/mL (<450); Protein, Total 7.4 g/dL (6.4-8.2); Sodium Level 139 mEq/L (136-145); Troponin High Sensitivity 7.5 pg/mL (<58.9)
[2023-10-19 19:27] LABS: Bilirubin Direct < 0.2 mg/dL (0-0.2); Bilirubin Indirect, Calculated 0.3 mg/dL (0.2-0.8); PT Prothrombin Time 14.4 SECONDS (9.4-12.5)
[2023-10-19 19:28] LABS: Protime INR 1.3
[2023-10-19 19:33] LABS: SARS-CoV-2 Antigen CONTROL BLUE LINE VIS/BG OK; SARS-CoV-2 Antigen Rapid Res Negative (Negative)
--- NOTE | 2023-10-19 19:57 | RAD REPORT ---
EXAM DESCRIPTION: CT - Chest Abd Pelvis Wo Con - 10/19/2023 7:48 pm CLINICAL HISTORY: Chest and abdomen pain. abdominal pain;Chest pain;Dyspnea COMPARISON: Thorax Wo Con dated 04/06/2023; Abdomen Pelvis Wo Contrast dated 09/13/2023 TECHNIQUE: A limited noncontrast study was performed. All CT scans are performed using dose optimization technique as appropriate and may include automated exposure control or mA/KV adjustment according to patient size. FINDINGS: Mild COPD is present.11 mm spiculated lingular nodule is noted, unchanged since 04/06/2023 prior study.No pleural or pericardial effusion.No intrathoracic adenopathy. The liver, spleen, pancreas, adrenal glands are within normal limits. Punctate caliceal stones bilate rally without hydronephrosis. No bowel obstruction, free air, free fluid or abscess. Normal appendix. Prominent sigmoid diverticulo sis coli without diverticulitis. Moderate stool present throughout the colon. No pathologic lymphaden opathy in the abdomen or pelvis. Prominent thoracic lumbar degenerative changes. IMPRESSION: COPD with 11 mm spiculated lingular nodule noted.Although this is unchanged since 2022, continued interval follow-up is recommended with follow-up CT chest in 6 months. Punctate bilateral caliceal calculi. Sigmoid diverticulosis coli without diverticulitis.
--- NOTE | 2023-10-19 20:02 | ER ---
Nurse's Notes [facility] Name: Alexsandra Hercules Age: 83 yrs Sex: Female : 1940 Arrival Date: 10/19/2023 Time: 18:11 Bed 17 Private MD: Diagnosis: Group A strep pharyngitis, abdominal pain Presentation: 10/18 18:24 Chief complaint: Patient states: Dizzy spells, light headaches and trouble breathing nj1 since Monday, getting worse. Also complains of abdominal pain that started today. Coronavirus screen: Vaccine status: Patient reports receiving the 2nd dose of the covid vaccine. Ebola Screen: Patient denies travel to an Ebola-affected area in the 21 days before illness onset. Initial Sepsis Screen: Does the patient meet any 2 criteria? No. Patient's initial sepsis screen is negative. Does the patient have a suspected source of infection? No. Patient's initial sepsis screen is negative. Risk Assessment: Do you want to hurt yourself or someone else? Patient reports no desire to harm self or others. Onset of symptoms was October 17, 2023. 18:24 Method Of Arrival: Ambulatory [facility] 18:24 Acuity: TANO 3 nj1 Triage Assessment: 18:30 General: Appears in no apparent distress. Behavior is cooperative, appropriate for age, bp anxious. Pain: Denies pain. EENT: No deficits noted. Neuro: Reports dizziness. Cardiovascular: No deficits noted. Respiratory: Reports shortness of breath Onset: The symptoms/episode began/occurred at an unknown time. the patient has mild shortness of breath. GI: No signs and/or symptoms were reported involving the gastrointestinal system. : No signs and/or symptoms were reported regarding the genitourinary system. Derm: No deficits noted. Musculoskeletal: No deficits noted. Historical: - Allergies: 18:27 Codeine; nj1 18:27 HYDROCODONE; nj1 18:27 Iodine; nj1 18:27 Morphine; nj1 18:27 Tramadol HCl; nj1 18:27 butorphanol; nj1 18:27 Stadol; nj1 - PMHx: 18:27 Atrial fibrillation; BREAST CA; Diabetes - NIDDM; Glaucoma; Hypertension; nj1 - PSHx: 18:27 Cholecystectomy; Hand - Right; Mastectomy - Left; nj1 - Immunization history:: Client reports receiving the 2nd dose of the Covid vaccine. - Infectious Disease History:: Denies. - Social history:: Smoking status: Patient denies any tobacco usage or history of. Screenin:42 [facility] ED Fall Risk Assessment (Adult) History of falling in the last 3 months, bp including since admission No falls in past 3 months (0 pts) Confusion or Disorientation No (0 pts) Intoxicated or Sedated No (0 pts) Impaired Gait No (0 pts) Mobility Assist Device Used No (0 pt) Altered Elimination No (0 pt) Score/Fall Risk Level 0 - 2 = Low Risk. Abuse screen: Denies threats or abuse. Denies injuries from another. Nutritional screening: No deficits noted. Tuberculosis screening: No symptoms or risk factors identified. Assessment: 18:30 General: Appears in no apparent distress. Behavior is cooperative, appropriate for age, bp anxious. Cardiovascular: Rhythm is sinus rhythm. Respiratory: Airway is patent Respiratory effort is even, unlabored, Breath sounds are clear. 19:10 General: Appears in no apparent distress. comfortable, Behavior is calm, cooperative, jw7 appropriate for age. Pain: Denies pain. Neuro: Level of Consciousness is awake, alert, obeys commands, Oriented to person, place, time, situation. Cardiovascular: Heart tones S1 S2 present Capillary refill < 3 seconds Clubbing of nail beds is absent JVD is absent Patient's skin is warm and dry. Rhythm is sinus rhythm. Respiratory: Airway is patent Trachea midline Respiratory effort is even, unlabored, Respiratory pattern is regular, symmetrical, Breath sounds are clear bilaterally. GI: Abdomen is round non-distended, Bowel sounds present X 4 quads. Abd is soft and non tender X 4 quads. : No deficits noted. No signs and/or symptoms were reported regarding the genitourinary system. EENT: No deficits noted. No signs and/or symptoms were reported regarding the EENT system. Derm: Skin is intact, is healthy with good turgor, Skin is dry, Skin is normal, Skin temperature is warm. Musculoskeletal: Circulation, motion, and sensation intact. Range of motion: intact in all extremities. 20:30 Reassessment: Patient appears in no apparent distress at this time. No changes from jw7 previously documented assessment. Patient and/or family updated on plan of care and expected duration. Pain level reassessed. Patient is alert, oriented x 3, equal unlabored respirations, skin warm/dry/pink. Vital Signs: 18:24 BP 135 / 80; Pulse 83; Resp 20; Temp 97.8; Pulse Ox 87% on R/A; Weight 69.85 kg; Height nj1 4 ft. 10 in. ; 19:36 BP 127 / 61; Pulse 65; Resp 19 S; Pulse Ox 97% on 2 lpm NC; jw7 20:41 BP 130 / 65; Pulse 68; Resp 17 S; Temp 98.1(O); Pulse Ox 98% on R/A; jw7 18:24 Body Mass Index 32.19 (69.85 kg, 147.32 cm) nj1 ED Course: 18:13 Patient arrived in ED. rg4 18:15 Edmar Finney MD is Attending Physician. sp3 18:27 Triage completed. nj1 18:28 Arm band placed on left wrist. nj1 18:35 Oxygen administration via nasal cannula \T\ 2L/min. nj1 18:40 Bala Aguirre, RN is Primary Nurse. bp 18:42 Patient has correct armband on for positive identification. bp 18:50 Inserted saline lock: 22 gauge in right forearm, using aseptic technique. Blood bp collected. 19:00 Provided Education on: use of call light. jw7 19:34 EKG done, by ED staff, reviewed by Edmar Finney MD. jw7 19:49 Chest Abd Pelvis Wo Con In Process Unspecified. EDMS 20:42 No provider procedures requiring assistance completed. IV discontinued, intact, jw7 bleeding controlled, No redness/swelling at site. Pressure dressing applied. Administered Medications: No medications were administered Medication: 20:42 VIS not applicable for this client. jw7 Outcome: 20:02 Discharge ordered by . sp3 20:42 Discharged to home ambulatory, jw7 20:42 Condition: stable 20:42 Discharge instructions given to patient, Instructed on discharge instructions, follow up and referral plans. medication usage, Demonstrated understanding of instructions, follow-up care, medications, Prescriptions given X 1, 20:43 Patient left the ED. jw7 Signatures: Dispatcher [employer] EDMS Daya Yan rg4 Bala Aguirre, RN RN bp Edmar Finney MD MD sp3 Maria Esther Evans RN RN jw7 Roland, Amena, RN RN nj1
--- NOTE | 2023-10-19 20:02 | EDPHYS ---
Physician Documentation [facility] Name: Alexsandra Hercules Age: 83 yrs Sex: Female : 1940 Arrival Date: 10/19/2023 Time: 18:11 Bed 17 Private MD: ED Physician Edmar Finney HPI: 10/18 18:49 This 83 yrs old Female presents to ER via Ambulatory with complaints of sp3 Shortness Of Breath, abdominal pain. 18:49 83-year-old female with a history of paroxysmal atrial fibrillation, prior breast sp3 cancer not on any current treatment, diabetes, hypertension presents to the ED with chief complaint shortness of breath, subjective fever and fatigue for 3 to 4 days along with epigastric abdominal pain. Abdominal pain has been more chronic off-and-on. She denies any vomiting, diarrhea, back pain, chest pain, rash, syncope, near syncope, prolonged immobilization, prior DVT or PE, known sick contacts, or any other signs or symptoms on ROS at this time.. Historical: - Allergies: 18:27 Codeine; nj1 18:27 HYDROCODONE; nj1 18:27 Iodine; nj1 18:27 Morphine; nj1 18:27 Tramadol HCl; nj1 18:27 butorphanol; nj1 18:27 Stadol; nj1 - PMHx: 18:27 Atrial fibrillation; BREAST CA; Diabetes - NIDDM; Glaucoma; Hypertension; nj1 - PSHx: 18:27 Cholecystectomy; Hand - Right; Mastectomy - Left; nj1 - Immunization history:: Client reports receiving the 2nd dose of the Covid vaccine. - Infectious Disease History:: Denies. - Social history:: Smoking status: Patient denies any tobacco usage or history of. ROS: 18:50 Constitutional: Negative for fever, chills, and weight loss, Eyes: Negative for injury, sp3 pain, redness, and discharge, Neck: Negative for injury, pain, and swelling, Cardiovascular: Negative for chest pain, palpitations, and edema, Back: Negative for injury and pain, MS/Extremity: Negative for injury and deformity, Skin: Negative for injury, rash, and discoloration, Neuro: Negative for headache, weakness, numbness, tingling, and seizure, Psych: Negative for depression, anxiety, suicide ideation, homicidal ideation, and hallucinations, Allergy/Immunology: Negative for hives, rash, and allergies, Endocrine: Negative for neck swelling, polydipsia, polyuria, polyphagia, and marked weight changes, Hematologic/Lymphatic: Negative for swollen nodes, abnormal bleeding, and unusual bruising, 18:50 All other systems are negative, Exam: 18:50 Constitutional: This is a well developed, well nourished patient who is awake, alert, sp3 and in no acute distress. Head/Face: Normocephalic, atraumatic. Eyes: Pupils equal round and reactive to light, extra-ocular motions intact. Lids and lashes normal. Conjunctiva and sclera are non-icteric and not injected. Cornea within normal limits. Periorbital areas with no swelling, redness, or edema. Neck: Trachea midline, no thyromegaly or masses palpated, and no cervical lymphadenopathy. Supple, full range of motion without nuchal rigidity, or vertebral point tenderness. No Meningismus. Chest/axilla: Normal chest wall appearance and motion. Nontender with no deformity. No lesions are appreciated. Cardiovascular: Regular rate and rhythm with a normal S1 and S2. No gallops, murmurs, or rubs. Normal PMI, no JVD. No pulse deficits. Back: No spinal tenderness. No costovertebral tenderness. Full range of motion. Skin: Warm, dry with normal turgor. Normal color with no rashes, no lesions, and no evidence of cellulitis. MS/ Extremity: Pulses equal, no cyanosis. Neurovascular intact. Full, normal range of motion. Neuro: Awake and alert, GCS 15, oriented to person, place, time, and situation. Cranial nerves II-XII grossly intact. Motor strength 5/5 in all extremities. Sensory grossly intact. Cerebellar exam normal. Normal gait. Psych: Awake, alert, with orientation to person, place and time. Behavior, mood, and affect are within normal limits. 18:50 Respiratory: Clear breath sounds with active cough without production., 18:50 Abdomen/GI: Mild epigastric pain without peritoneal signs, rebound or guarding., 19:35 ECG was reviewed by the Attending Physician. EKG demonstrates normal sinus rhythm at 66 sp3 bpm with right bundle branch block and nonspecific diffuse ST/T changes without evidence of acute ischemia. EKG is unchanged from prior EKG dated February 03, 2023. Vital Signs: 18:24 BP 135 / 80; Pulse 83; Resp 20; Temp 97.8; Pulse Ox 87% on R/A; Weight 69.85 kg; Height nj1 4 ft. 10 in. ; 19:36 BP 127 / 61; Pulse 65; Resp 19 S; Pulse Ox 97% on 2 lpm NC; jw7 20:41 BP 130 / 65; Pulse 68; Resp 17 S; Temp 98.1(O); Pulse Ox 98% on R/A; jw7 18:24 Body Mass Index 32.19 (69.85 kg, 147.32 cm) nj1 MDM: 18:30 Patient medically screened. sp3 18:51 Data reviewed: vital signs, nurses notes, EMS record, old medical records, lab test sp3 result(s), EKG, radiologic studies. ED course: 83-year-old female with shortness of breath, cough, upper respiratory symptoms along with epigastric abdominal pain in the setting of prior cancer. Differential diagnosis includes viral illness, COVID-19, influenza, pneumonia, bronchitis, biliary pathology to a lesser degree acute coronary syndrome or other abdominal pathology. Workup will include CT scan of the chest, abdomen and pelvis, laboratory values, UA, swabs and general supportive care. Disposition pending workup and patient course with probable discharge home if workup is negative. Patient will be signed out to night physician for final reevaluation and final disposition.. 20:01 ED course: Patient positive for group A strep. Remainder of blood work demonstrates no sp3 significant abnormality. CT scan demonstrates no significant abnormality either. Will safely discharged home on p.o. Augmentin at this time. Follow-up with PCP.. 10/18 18:31 Order name: Basic Metabolic Panel; Complete Time: 19:34 sp3 10/18 18:31 Order name: CBC with Diff; Complete Time: 19:34 sp3 10/18 18:31 Order name: LFT's; Complete Time: 19:34 sp3 10/18 18:31 Order name: Magnesium; Complete Time: 19:34 sp3 10/18 18:31 Order name: NT PRO-BNP; Complete Time: 19:34 sp3 10/18 18:31 Order name: PT-INR; Complete Time: 19:34 sp3 10/18 18:31 Order name: Troponin HS; Complete Time: 19:34 sp3 10/18 18:53 Order name: SARS RAPID; Complete Time: 19:34 sp3 10/18 18:53 Order name: Flu; Complete Time: 19:34 sp3 10/18 18:53 Order name: Strep; Complete Time: 19:34 sp3 10/18 19:49 Order name: Chest Abd Pelvis Wo Con; Complete Time: 19:59 EDMS 10/18 18:31 Order name: EKG; Complete Time: 18:31 sp3 10/18 18:31 Order name: Cardiac monitoring; Complete Time: 19:33 sp3 10/18 18:31 Order name: EKG - Nurse/Tech; Complete Time: 19:33 sp3 10/18 18:31 Order name: IV Saline Lock; Complete Time: 18:49 sp3 10/18 18:31 Order name: Labs collected and sent; Complete Time: 18:49 sp3 10/18 18:31 Order name: O2 Per Protocol; Complete Time: 18:49 sp3 10/18 18:31 Order name: O2 Sat Monitoring; Complete Time: 18:49 sp3 Administered Medications: No medications were administered Disposition Summary: 10/19/23 20:02 Discharge Ordered Notes: Location: Home sp3 Condition: Stable sp3 Diagnosis - Group A strep pharyngitis, abdominal pain sp3 Followup: sp3 - With: Private Physician - When: Upon discharge from the Emergency Department - Reason: Continuance of care Discharge Instructions: - Discharge Summary Sheet sp3 - Strep Throat, Adult sp3 Forms: - Medication Reconciliation Form sp3 - Antibiotic Education sp3 - Prescription Opioid Use sp3 - Patient Portal Instructions sp3 - Leadership Thank You Letter sp3 Prescriptions: - Augmentin 875-125 mg Oral Tablet - take 1 tablet ORAL route every 12 hours for 10 days; 20 tablet; Refills: 0, sp3 Product Selection Permitted Signatures: Dispatcher [employer] EDMS Edmar Finney MD MD sp3 Maria Esther Evans RN RN jw7 Amena Watkins RN RN nj1 Corrections: (The following items were deleted from the chart) 18:32 18:31 BASIC METABOLIC PANEL+C.LAB.BRZ ordered. EDMS EDMS 18:32 18:31 CBC+H.LAB.BRZ ordered. EDMS EDMS 18:32 18:31 HEPATIC FUNCTION+C.LAB.BRZ ordered. EDMS EDMS 18:32 18:31 MAGNESIUM+C.LAB.BRZ ordered. EDMS EDMS 18:32 18:31 PROBNP+C.LAB.BRZ ordered. EDMS EDMS 18:32 18:31 PROTIME (+INR)+COAG.LAB.BRZ ordered. EDMS EDMS 18:32 18:31 Troponin High Sensitivity+C.LAB.BRZ ordered. EDMS EDMS 18:54 18:54 SARS-COV-2 Antigen Rapid+I.LAB.BRZ ordered. EDMS EDMS 18:54 18:54 Influenza Screen (A \T\ B)+BA.LAB.BRZ ordered. EDMS EDMS 18:54 18:54 Group A Streptococcus Rapid Sc+BA.LAB.BRZ ordered. EDMS EDMS 19:49 18:31 Chest Abdomen Pelvis W Con+CT.RAD.BRZ ordered. EDMS EDMS 19:52 19:35 ECG was reviewed by the Attending Physician. EKG demonstrates normal sinus rhythm sp3 at 66 bpm with right bundle branch block and nonspecific diffuse ST/T changes without evidence of acute ischemia. Old EKG Pending. sp3
[2023-10-19 20:55] VITALS: BP 130/65; TEMP 98.1; O2SAT 98
--- NOTE | 2023-10-20 12:32 | EKG ---
Test Date: 2023-10-19 Test Time: 19:29:21 Sports Marketing Coordinator: RAUL MEASUREMENT RESULTS: Intervals: Rate: 66 RI: 196 QRSD: 158 QT: 464 QTc: 486 [place]: P: 14 RI: 196 QRS: -53 T: -72 INTERPRETIVE STATEMENTS: Normal sinus rhythm with sinus arrhythmia Left axis deviation Right bundle branch block Septal infarct, age undetermined T wave abnormality, consider inferolateral ischemia Abnormal ECG Compared to ECG 02/03/2023 00:48:21 No significant changes Electronically Signed On 10-20-23 12:31:48 CDT by Everette Trimble
== END 2023-10-19 20:43 | disposition home or self-care (01) ==
LOC: ER 18:11
DX: R10.9 Unspecified abdominal pain (principal); J02.0 Streptococcal pharyngitis; I48.91 Unspecified atrial fibrillation; E11.9 Type 2 diabetes mellitus without complications; I10 Essential (primary) hypertension; H40.9 Unspecified glaucoma; Z11.52 Encounter for screening for COVID-19; Z88.5 Allergy status to narcotic agent; Z88.8 Allergy status to other drugs, medicaments and biological substances
CPT/HCPCS: 36415; 71250; 74176; 80048; 80076; 83735; 83880; 84484; 85025; 85610; 87081; 87804; 87811; 93005; 99284

== ENCOUNTER 2024-12-14 10:54 | Emergency (ER) | payer OTHER ==
[2024-12-14] MEDS ORDERED: NA CHLORIDE 0.9% 1,000 ML ONE (12:11)
--- NOTE | 2024-12-14 12:21 | RAD REPORT ---
EXAMINATION: CT ABDOMEN AND PELVIS WITHOUT CONTRAST CLINICAL INDICATION: Abdominal pain TECHNIQUE: CT abdomen and pelvis was performed, as per department protocol. IV contrast and oral was not administered.Axial, sagittal and coronal reconstructions were obtained. One or more of the following dose reduction techniques were used: Automated exposure control, adjustment of the mA and/o r kV according to the patient size, and/or iterative reconstruction. Unless otherwise specified, incidental findings do not require dedicated imaging follow-up. [id number]. COMPARISON: June 2024 and September 2023 FINDINGS: The lack of intravenous and oral contrast limits evaluation of solid organs, vessels and bowel. 17 mm spiculated nodule lingula mildly enlarged from prior exam. Measurement obtained on the sagittal reconstruction. Mild to moderate left hydronephrosis. Left ureter dilated. 6 mm calculus left UVJ. Additional tiny bilateral renal calculi. No right hydronephrosis. Liver, spleen and adrenals grossly normal Atrophic pancreas. Spondylosis lumbar spine. This results in spinal stenosis. No evidence of diverticulitis IMPRESSION: 6 mm calculus left UVJ results in mild to moderate hydronephrosis 17 mm spiculated nodule lingula mildly enlarged from 2023. Even though the 2023 PET scan was negative it is recommended that a repeat PET scan be performed due to the enlargement.
[2024-12-14 12:40] LABS: Absolute Lymphocytes (CBC) 0.7 K/uL (0.7-4.9); Hematocrit 33.7 % (36.0-45.0); Hemoglobin 11.3 g/dL (12.0-15.0); MCH 30.0 pg (27.0-35.0); MCHC 33.4 g/dL (32.0-36.0); MCV 89.7 fL (80-100); MPV 7.8 fL (7.6-11.3); Nucleated RBC Absolute Count 0.0 (0-0); Nucleated Red Blood Cells % 0.0 % (0-0); RBC Red Blood Cell Count 3.75 M/uL (3.86-4.86); White Blood Count 8.00 thou/uL (4.3-10.9)
[2024-12-14 12:44] LABS: PT Prothrombin Time 35.6 SECONDS (10-13.0); Protime INR 3.26
[2024-12-14 13:05] LABS: ALT/SGPT 44.0 U/L (13-56); Albumin 2.8 g/dL (3.4-5.0); Albumin/Globulin Ratio 0.8 (1.1-1.8); Alkaline Phosphatase 157.0 U/L (45-117); Anion Gap 13.6 mEq/L (5.0-15.0); BUN Blood Urea Nitrogen 50.0 mg/dL (7-18); Globulin 3.6 g/dL (2.3-3.5); Glucose Level 73.0 mg/dL (74-106); Lipase 17.0 U/L (13-75); Troponin High Sensitivity 10.7 pg/mL (<58.9)
[2024-12-14 13:06] LABS: AST/SGOT 56.0 U/L (15-37); Potassium 3.6 mEq/L (3.5-5.1)
--- NOTE | 2024-12-14 13:24 | ER ---
Nurse's Notes [facility] Name: Alexsandra Hercules Age: 84 yrs Sex: Female : 1940 Arrival Date: 12/14/2024 Time: 10:54 Bed 3 Private MD: Diagnosis: Acute renal failure, kidney stone left side with moderate hydronephrosis Presentation: 12/14 11:15 Chief complaint: Patient's son or daughter states: Per daughter, patient is c/o urinary ar8 symptoms, generalized weakness, cold symptoms and lower back.currently on Augmentin. Coronavirus screen: At this time, the client does not indicate any symptoms associated with coronavirus-19. Ebola Screen: No symptoms or risks identified at this time. Initial Sepsis Screen: Does the patient meet any 2 criteria? No. Patient's initial sepsis screen is negative. Does the patient have a suspected source of infection? No. Patient's initial sepsis screen is negative. Risk Assessment: Do you want to hurt yourself or someone else? Patient reports no desire to harm self or others. Onset of symptoms was December 11, 2024. 11:15 Method Of Arrival: Wheelchair ar8 11:44 Acuity: TANO 2 ar8 Triage Assessment: 11:18 General: Appears uncomfortable, Behavior is calm, cooperative. Pain: Complains of pain ar8 in right upper quadrant Pain currently is 8 out of 10 on a pain scale. Historical: - Allergies: 11:18 butorphanol; ar8 11:18 Codeine; ar8 11:18 HYDROCODONE; ar8 11:18 Iodine; ar8 11:18 Morphine; ar8 11:18 Stadol; ar8 11:18 Tramadol HCl; ar8 - PMHx: 11:18 Atrial fibrillation; BREAST CA; breast cancer; Diabetes - NIDDM; Glaucoma; ar8 Hypertension; Atrial fibrillation; Hypertension; - PSHx: 11:18 Cholecystectomy; Hand - Right; Mastectomy - Left; ar8 - Immunization history:: Adult Immunizations up to date, Client reports receiving the 1st dose of the Covid vaccine. - Infectious Disease History:: Denies. - Social history:: Smoking status: Patient/guardian denies using tobacco. Screenin:31 [facility] ED Fall Risk Assessment (Adult) History of falling in the last 3 months, dd2 including since admission No falls in past 3 months (0 pts) Confusion or Disorientation No (0 pts) Intoxicated or Sedated No (0 pts) Impaired Gait No (0 pts) Mobility Assist Device Used Yes (1 pt) Altered Elimination No (0 pt) Score/Fall Risk Level 0 - 2 = Low Risk Oriented to surroundings, Maintained a safe environment, Educated pt \T\ family on fall prevention, incl call for assistance when getting out of bed, Assessed \T\ reinforced patient's understanding of fall precautions, Hourly rounding (assess needs \T\ fall precautionary measures) done. Abuse screen: Denies threats or abuse. Denies injuries from another. Nutritional screening: No deficits noted. Tuberculosis screening: No symptoms or risk factors identified. Assessment: 11:36 General: Appears uncomfortable, ill, Behavior is calm, cooperative, appropriate for dd2 age. Pain: Complains of pain in low back area and right upper quadrant Quality of pain is described as aching. Neuro: Level of Consciousness is awake, alert, obeys commands, Oriented to person, place, time, situation, Appropriate for age. Cardiovascular: Patient's skin is warm and dry. HYPOTENSIVE. Rhythm is atrial fibrillation Chest pain is denied. Respiratory: Airway is patent Respiratory effort is even, unlabored, Respiratory pattern is regular, symmetrical. GI: Abdomen is round Bowel sounds present X 4 quads. Abd is soft X 4 quads Abdomen is tender to palpation in right upper quadrant Reports upper abdominal pain, nausea, vomiting. : Reports pain in lower back. EENT: No deficits noted. No signs and/or symptoms were reported regarding the EENT system. Derm: No deficits noted. No signs and/or symptoms reported regarding the dermatologic system. 13:41 Reassessment: No changes from previously documented assessment. Patient and/or family dd2 updated on plan of care and expected duration. Pain level reassessed. PT AND FAMILY UPDATED ON PLAN TO TRANSFER PT TO [facility]. PT AND FAMILY AGREE. Vital Signs: 11:15 Pulse 59; Resp 20; Temp 98.6; Pulse Ox 96% ; Weight 7.71 kg; Height 4 ft. 9 in. ; Pain ar8 8/10; 11:18 BP 90 / 43; ar8 11:35 BP 89 / 58; Pulse 67; Resp 20; Pulse Ox 95% on R/A; dd2 11:55 BP 86 / 37; Pulse 72; Resp 19; Pulse Ox 96% on R/A; dd2 12:14 BP 84 / 51; Pulse 72; Resp 20; Pulse Ox 96% on R/A; dd2 12:20 BP 89 / 51; Pulse 71; Resp 21; Temp 98.4; Pulse Ox 96% on R/A; dd2 12:25 BP 94 / 52; Pulse 67; Resp 19; Pulse Ox 97% on R/A; dd2 12:45 BP 91 / 49 (/lg); Pulse 68; Resp 20; Pulse Ox 96% on R/A; dd2 13:00 BP 87 / 41; Pulse 74; Resp 19; Pulse Ox 96% on R/A; dd2 14:02 BP 9 / 51; Pulse 74; Resp 18; Pulse Ox 96% on R/A; dd2 14:37 BP 92 / 52; Pulse 65; Resp 18; Temp 98.5; Pulse Ox 96% on R/A; dd2 11:15 Body Mass Index 3.68 (7.71 kg, 144.78 cm) ar8 11:15 Pain Scale: Adult ar8 ED Course: 10:57 Patient arrived in ED. im 10:59 Edmar Finney MD is Attending Physician. sp3 11:18 Triage completed. ar8 11:18 Arm band placed on left wrist. ar8 11:38 Client placed on continuous cardiac and pulse oximetry monitoring. NIBP monitoring ap3 applied. ecmo specialist on. Pulse ox on. NIBP on. 11:51 CT Abd/Pelvis - Without Contrast In Process Unspecified. EDMS 12:13 No provider procedures requiring assistance completed. First set of blood cultures dd2 drawn by la, EKG done, by ED staff, reviewed by Edmar Finney MD. Patient maintains SpO2 saturation greater than 95% on room air. 12:30 Blood Culture Adult (2) Sent. dd2 12:30 Troponin High Sensitivity Sent. dd2 12:30 Lactate w/ 2H reflex if indic. Sent. dd2 12:30 CBC with Diff Sent. dd2 12:30 CMP Sent. dd2 12:30 Lipase Sent. dd2 12:30 Inserted saline lock: 22 gauge in right hand, using aseptic technique. Blood collected. hb Flushed with 10 mL NS. 12:30 Initial lab(s) drawn, by ED staff, sent to lab. hb 12:31 Patient has correct armband on for positive identification. Bed in low position. Call dd2 light in reach. Side rails up X2. Door closed. Noise minimized. Warm blanket given. Pillow given. Verbal reassurance given. 13:26 initiated a transfer with Reji from the [facility] transfer center. eb 13:40 connected the Urologist correctional counselor/case manager for [facility] with Dr. Finney for patient transfer eb consultation. 13:50 connected the hospitalist correctional counselor/case manager for [facility] with Dr. Finney for patient eb transfer consultation. 14:00 administrative approval given by Reji Ferris Rn/ patient has been accepted to [facility] room 1660/ Dr. Dustin Nguyen has accepted the patient in transfer/ report to be called to [phone]. 14:39 Provided Education on: TRANSFER EDUCATION. dd2 14:39 Patient transferred, IV remains in place. dd2 Administered Medications: 12:30 Drug: NS 0.9% IV 1000 ml IV at 1 bolus Per protocol; to be given as a bolus over 60 dd2 minutes Route: IV; Rate: 1 bolus; Site: right wrist; 13:30 Follow up: IV Status: Completed infusion dd2 13:46 Drug: Cefepime IVPB 1 grams IVPB at 200 ml/hr once over 30 mins; (mix in NS 100 mL) dd2 Route: IVPB; Rate: 200 ml/hr; Infused Over: 30 mins; Site: right wrist; 14:18 Follow up: IV Status: Completed infusion dd2 Outcome: 13:24 ER care complete, transfer ordered by MD. hooper 14:39 Transferred by ground EMS to [facility], Transfer form completed. dd2 14:39 Condition: stable 14:39 Instructed on the need for transfer, Demonstrated understanding of instructions, 14:40 Patient left the ED. dd2 Signatures: Dispatcher [employer] EDMS Constance Martinez RN RN hb Prokisch, Amanda RN RN ap3 Imani Ascencio Setul, MD MD sp3 Janene Herbert DIANA, RN RN dd2 Delbert Flores RN RN ar8 Corrections: (The following items were deleted from the chart) 11:44 11:15 Acuity: TANO 3 ar8 ar8
--- NOTE | 2024-12-14 13:24 | EDPHYS ---
Physician Documentation [facility] Name: Alexsandra Hercules Age: 84 yrs Sex: Female : 1940 Arrival Date: 12/14/2024 Time: 10:54 Bed 3 Private MD: ED Physician Edmar Finney HPI: 12/14 11:39 This 84 yrs old Female presents to ER via Wheelchair with complaints of sp3 Urinary Problem. 11:39 84-year-old female with history of atrial fibrillation on Xarelto, breast cancer, sp3 diabetes, hypertension now presents to the ED with chief complaint generalized weakness, flank pain and continued UTI being treated with Augmentin outpatient. Patient also has a history of kidney stones. ROS, history physical limited secondary to patient being weak and unable to give significant replies. History per family/daughter who is in the room. Initial blood pressure 90/43 at triage and patient brought back to her room.. Historical: - Allergies: 11:18 butorphanol; ar8 11:18 Codeine; ar8 11:18 HYDROCODONE; ar8 11:18 Iodine; ar8 11:18 Morphine; ar8 11:18 Stadol; ar8 11:18 Tramadol HCl; ar8 - PMHx: 11:18 Atrial fibrillation; BREAST CA; breast cancer; Diabetes - NIDDM; Glaucoma; ar8 Hypertension; Atrial fibrillation; Hypertension; - PSHx: 11:18 Cholecystectomy; Hand - Right; Mastectomy - Left; ar8 - Immunization history:: Adult Immunizations up to date, Client reports receiving the 1st dose of the Covid vaccine. - Infectious Disease History:: Denies. - Social history:: Smoking status: Patient/guardian denies using tobacco. ROS: 11:40 Unable to obtain ROS due to altered mental status, sp3 Exam: 11:41 Constitutional: This is a well developed, well nourished patient who is awake, alert, sp3 and in no acute distress. Head/Face: Normocephalic, atraumatic. Chest/axilla: Normal chest wall appearance and motion. Nontender with no deformity. No lesions are appreciated. Cardiovascular: Regular rate and rhythm with a normal S1 and S2. No gallops, murmurs, or rubs. Normal PMI, no JVD. No pulse deficits. Respiratory: Lungs have equal breath sounds bilaterally, clear to auscultation and percussion. No rales, rhonchi or wheezes noted. No increased work of breathing, no retractions or nasal flaring. Skin: Warm, dry with normal turgor. Normal color with no rashes, no lesions, and no evidence of cellulitis. MS/ Extremity: Pulses equal, no cyanosis. Neurovascular intact. Full, normal range of motion. 11:41 Back: Patient complains of back pain. Limited exam. Patient very weak but still conversing. No focal deficits noted. Abdomen soft., 11:47 ECG was reviewed by the Attending Physician. EKG demonstrates atrial fibrillation with sp3 ventricular response of 64 bpm absent FL interval, QTc of 493, right bundle branch block and nonspecific diffuse ST/T changes with no evidence of ischemia. Vital Signs: 11:15 Pulse 59; Resp 20; Temp 98.6; Pulse Ox 96% ; Weight 7.71 kg; Height 4 ft. 9 in. ; Pain ar8 8/10; 11:18 BP 90 / 43; ar8 11:35 BP 89 / 58; Pulse 67; Resp 20; Pulse Ox 95% on R/A; dd2 11:55 BP 86 / 37; Pulse 72; Resp 19; Pulse Ox 96% on R/A; dd2 12:14 BP 84 / 51; Pulse 72; Resp 20; Pulse Ox 96% on R/A; dd2 12:20 BP 89 / 51; Pulse 71; Resp 21; Temp 98.4; Pulse Ox 96% on R/A; dd2 12:25 BP 94 / 52; Pulse 67; Resp 19; Pulse Ox 97% on R/A; dd2 12:45 BP 91 / 49 (/lg); Pulse 68; Resp 20; Pulse Ox 96% on R/A; dd2 13:00 BP 87 / 41; Pulse 74; Resp 19; Pulse Ox 96% on R/A; dd2 14:02 BP 9 / 51; Pulse 74; Resp 18; Pulse Ox 96% on R/A; dd2 14:37 BP 92 / 52; Pulse 65; Resp 18; Temp 98.5; Pulse Ox 96% on R/A; dd2 11:15 Body Mass Index 3.68 (7.71 kg, 144.78 cm) ar8 11:15 Pain Scale: Adult ar8 MDM: 11:22 Medical Screening Exam initiated sp3 11:42 Data reviewed: vital signs, nurses notes, lab test result(s), EKG, radiologic studies. sp3 ED course: 84-year-old female with PMH above on Xarelto now here for continued UTI symptoms, generalized weakness and flank pain in the setting of history of kidney stones. Differential diagnosis includes worsening UTI, kidney stone/ureterolithiasis spectrum, electrolyte abnormality, dehydration, ACS, among others. Blood pressure 90/43 with pulse 60. Will obtain CT scan of the abdomen pelvis noncontrast, UA, general labs and general supportive care. Disposition pending workup and patient course with possible admission if needed.. 13:23 ED course: Creatinine noted at 3.1. Baseline 1 year ago was 1.1. Patient has 6 mm sp3 kidney stone at the left UVJ with moderate hydronephrosis. Blood pressure remains in the 90s systolically after IV fluids. We will safely transfer her to [facility] for further management and urological consultation due to that specialty not being available here.. 13:52 ED course: Discussed with urology and hospitalist at [facility] who have sp3 graciously accepted this patient.. 12/14 11:36 Order name: CBC with Diff; Complete Time: 13:52 sp3 12/14 11:36 Order name: CMP; Complete Time: 13:21 sp3 12/14 11:36 Order name: Lipase; Complete Time: 13:21 sp3 12/14 11:36 Order name: UA Rfx Alexsander Cult if indicated sp3 12/14 11:36 Order name: Lactate w/ 2H reflex if indic.; Complete Time: 13:21 sp3 12/14 11:36 Order name: Troponin High Sensitivity; Complete Time: 13:21 sp3 12/14 12:10 Order name: Blood Culture Adult (2) hb 12/14 12:16 Order name: PT-INR; Complete Time: 13:02 dd2 12/14 13:40 Order name: Manual Differential; Complete Time: 13:52 EDMS 12/14 11:36 Order name: CT Abd/Pelvis - Without Contrast; Complete Time: 13:02 sp3 12/14 11:36 Order name: IV Saline Lock; Complete Time: 12:30 sp3 12/14 11:36 Order name: Labs collected and sent; Complete Time: 12:30 sp3 12/14 11:36 Order name: EKG - Nurse/Tech; Complete Time: 11:44 sp3 Administered Medications: 12:30 Drug: NS 0.9% IV 1000 ml IV at 1 bolus Per protocol; to be given as a bolus over 60 dd2 minutes Route: IV; Rate: 1 bolus; Site: right wrist; 13:30 Follow up: IV Status: Completed infusion dd2 13:46 Drug: Cefepime IVPB 1 grams IVPB at 200 ml/hr once over 30 mins; (mix in NS 100 mL) dd2 Route: IVPB; Rate: 200 ml/hr; Infused Over: 30 mins; Site: right wrist; 14:18 Follow up: IV Status: Completed infusion dd2 Disposition Summary: 12/14/24 13:24 Transfer Ordered Notes: Transfer Location: [facility] sp3 Reason: Higher level of care sp3 Condition: Stable sp3 Problem: an acute exacerbation sp3 Symptoms: have worsened sp3 Accepting Physician: Don[facility] hospitalist and urological team(12/14/24 14:40) dd2 Diagnosis - Acute renal failure, kidney stone left side with moderate hydronephrosis sp3 Forms: - Medication Reconciliation Form sp3 - SBAR form sp3 Signatures: Dispatcher [employer] EDEdmar Jessica MD MD sp3 MUNA JIMENEZ RN RN dd2 Delbert Flores RN RN ar8 Corrections: (The following items were deleted from the chart) 11:36 11:36 CBC+H.LAB.BRZ ordered. EDMS EDMS 11:36 11:36 COMPREHENSIVE METABOLIC PANEL+C.LAB.BRZ ordered. EDMS EDMS 11:36 11:36 LIPASE+C.LAB.BRZ ordered. EDMS EDMS 11:36 11:36 UA Rfx Alexsander Cult if indicated+U.LAB.BRZ ordered. EDMS EDMS 11:36 11:36 LACTATE+C.LAB.BRZ ordered. EDMS EDMS 11:36 11:36 Troponin High Sensitivity+C.LAB.BRZ ordered. EDMS EDMS 11:36 11:36 Abdomen Pelvis Wo Con+CT.RAD.BRZ ordered. EDMS EDMS 12:16 12:16 PROTIME (+INR)+COAG.LAB.BRZ billie. EDMS EDMS 14:40 13:24 [facility] hospitalist and urological team sp3 dd2
[2024-12-14] MEDS ORDERED: CEFEPIME 1 GM/VIAL ONE (13:28)
[2024-12-14] MEDS ORDERED: NA CHLORIDE 0.9% 100 ML ONE (13:28)
[2024-12-14 13:39] LABS: Blood Morphology Comment NOT SEEN (NOT SEEN); Differential Total Cells Count 100; Segmented Neutrophils 65 % (40-80)
[2024-12-14 14:46] LABS: Sqamous Epithelial None Seen /HPF (None Seen); Urine Crystals Unidentified Few /HPF (None Seen); Urine Culture Reflex Order REFLEXED; Urine Microscopic Reflex YN ORDER UMIC; Urine WBC Clump Many /HPF (None Seen); Urine Yeast (Budding) Moderate /HPF (None Seen)
[2024-12-14 20:27] VITALS: O2SAT 96
[2024-12-14 20:33] VITALS: BP 92/52; TEMP 98.5
== END 2024-12-14 14:40 | disposition short-term general hospital (02) ==
LOC: ER 10:54
DX: N17.9 Acute kidney failure, unspecified (principal); N13.2 Hydronephrosis with renal and ureteral calculous obstruction; Z87.442 Personal history of urinary calculi
CPT/HCPCS: 96365; 96361; 93005; 87040 ×2; 87088; 85025; 81001; 87086; 36415; 85610; 83605; 84484; 83690; 80053; 74176; 99285; J7030; J0692; 87077; 87186